=== PATIENT | female | born 1995 | race Caucasian/White ===

== ENCOUNTER 2016-04-06 13:35 | Inpatient (IN) | payer OTHER ==
[2016-04-06] VITALS (11 sets, daily range): BP systolic 102–138; BP diastolic 40–63; PULSE 118–142; RESP 16–23; TEMP 97.4–98.9; O2SAT 97–100
[~2016-04-06] VITALS: Ht 165.1 cm; Wt 79.8 kg
[~2016-04-06 13:35] MED LIST: ALBU2.5I INH; ALBU6.7H INH; ALBU8I INH; DICY1TAB26 PO; DUONI NEB; HUMA100I SC; LANTUSP SQ; LISI2.5T3 PO; PRED20 PO
[2016-04-06] MEDS ORDERED: SODIUM CHLOR 0.9% 1000 ML INJ 1,000 ML IV SCH ×2 (13:56→15:45)
[2016-04-06] MEDS ORDERED: DEXT 5%-NACL 0.9% 1000 ML INJ 1,000 ML IV SCH ×2 (13:56→15:45)
[2016-04-06] MEDS ORDERED: LANTUS2P SQ (14:06)
[2016-04-06] MEDS ORDERED: VENTAER INH (14:06)
[2016-04-06] MEDS ORDERED: [UNRECOGNIZED DRUG - OTHER] SQ (14:06)
[2016-04-06] MEDS ORDERED: LISI2.5T3 PO (14:06)
--- NOTE | 2016-04-06 14:16 | RADHPO ---
EXAM DATE/TIME: 04/06/2016 14:01 [place] COMPARISON: No previous studies available for comparison. INDICATIONS : Short of breath and tingling in arms. MEDICAL HISTORY : Diabetes mellitus type I. Asthma SURGICAL HISTORY : None. ENCOUNTER: Initial ACUITY: 1 day PAIN SCORE: 7/10 LOCATION: Bilateral chest FINDINGS: A single view of the chest demonstrates the lungs to be symmetrically aerated without evidence of mas s, infiltrate or effusion. The cardiomediastinal contours are unremarkable. Osseous structures are intact. CONCLUSION: 1. No acute cardiopulmonary findings. Nickolas Mooney MD on April 06, 2016 at 14:14 Board Certified Radiologist. This report was verified electronically.
[2016-04-06] MEDS: SODIUM CHLOR 0.9% 1000 ML INJ 1,000 ML IV SCH ×2 (14:17→15:49)
[2016-04-06 14:18] LABS: BLOOD GAS VENOUS BASE EXCESS -6.5 mmol/L (-2-2); BLOOD GAS VENOUS HCO3 19 mmol/L (22-26); BLOOD GAS VENOUS O2 CONTENT 7.9 Vol % (9.0-17.0); BLOOD GAS VENOUS O2 HGB SAT 45 % (70-76); BLOOD GAS VENOUS PCO2 44 mmHg (44-48); BLOOD GAS VENOUS PO2 35 mmHg (35-40); BLOOD GAS VENOUS pH 7.27 (7.360-7.400); CRITICAL VALUE YES; FIO2 21 %; TEMP CORR TO 98.6
[2016-04-06 14:19] LABS: DRAW SITE RT BRACHIAL; STAT YES
[2016-04-06 14:35] LABS: BLOOD, URINE NEG (NEG); NITRITE,URINE NEG (NEG); PH, URINE 5.5 (5.0-8.5)
[2016-04-06 14:40] LABS: GLUCOSE,URINE 1000 OR GREATER mg/dL (NEG); KETONE, URINE 80 OR GREATER mg/dL (NEG); METHOD OF COLLECTION CLEAN CATCH; URINE COLOR YELLOW (YELLW/STRAW)
[2016-04-06 14:41] LABS: COMMENT (UR) CULT NOT INDICATED; CULTURE IF INDICATED CULT NOT INDICATED; RBC, URINE 0-3 /hpf (0-3); SQUAMOUS EPITHELIAL CELL URINE 0-5 /hpf (0-5); WBC, URINE 0-2 /hpf (0-5)
[2016-04-06 14:45] LABS: CHLORIDE 101 MEQ/L (98-107); POTASSIUM 3.9 MEQ/L (3.5-5.1); SODIUM (NA) 138 MEQ/L (136-145)
[2016-04-06 14:49] LABS: ANION GAP 17 MEQ/L (5-15); BLOOD UREA NITROGEN 16 MG/DL (7-18); MAGNESIUM 1.7 MG/DL (1.5-2.5)
[2016-04-06 14:52] LABS: ALT (GPT) 47 U/L (10-53); AST (GOT) 31 U/L (15-37); GLOMERULAR FILTRATION RATE 134 ML/MIN (>89)
[2016-04-06 14:54] LABS: ALKALINE PHOSPHATASE 286 U/L (45-117)
[2016-04-06 15:04] LABS: BETA-HYDROXYBUTYRATE 3.98 MMOL/L (0.00-0.39)
[2016-04-06 15:09] LABS: AUTOMATED NEUTROPHIL # 5.1 TH/MM3 (1.8-7.7); BASOPHIL % 0.6 % (0.0-2.0); EOSINOPHIL # 0.1 TH/MM3 (0-0.4); EOSINOPHIL % 1.1 % (0.0-4.0); HEMATOCRIT 39.8 % (35.0-46.0); HEMO FLAGS DIFF FINAL; LYMPH % 24.7 % (9.0-44.0); LYMPHOCYTE # 1.9 TH/MM3 (1.0-4.8); MEAN CELL VOLUME 84.3 FL (80.0-100.0); MEAN CORPUSCULAR HEMOGLOBIN 27.5 PG (27.0-34.0); MEAN CORPUSCULAR HGB CONC 32.6 % (32.0-36.0); MONO % 8.7 % (0.0-8.0); NEUT % 64.9 % (16.0-70.0); PLATELET COUNT 266 TH/MM3 (150-450); RED BLOOD COUNT 4.72 MIL/MM3 (4.00-5.30); RED CELL DISTRIBUTION WIDTH 12.4 % (11.6-17.2); WHITE BLOOD COUNT 7.8 TH/MM3 (4.0-11.0)
[2016-04-06] MEDS ORDERED: SODIUM PHOSPHATE INJ 15 MMOL in SODIUM CHLORIDE 0.9% INJ 100 ML IV PRN (15:45)
[2016-04-06] MEDS ORDERED: CHLORHEXIDINE GLUCONATE 2 % 1 PACK (2 CLOTHS) TOP PRN (15:45)
[2016-04-06] MEDS ORDERED: MISCELLANEOUS NURSING INFORMATION XX SCH (15:45)
[2016-04-06] MEDS ORDERED: POTASSIUM CHLOR 20 MEQ PREMIX 100 ML IV PRN ×10 (15:45)
[2016-04-06] MEDS ORDERED: INSULIN REGULAR (IV INFUSION) 100 UNITS in SODIUM CHLORIDE 0.9% INJ 99 ML IV SCH ×4 (15:45)
[2016-04-06] MEDS ORDERED: POTASSIUM CHLOR 40 MEQ PREMIX 100 ML IV PRN ×2 (15:45)
[2016-04-06] MEDS ORDERED: INSULIN HUMAN REGULAR 1,000 UNITS/10 ML VIAL IV PUSH ONE (15:45)
[2016-04-06] MEDS ORDERED: SODIUM BICARBONATE 8.4% SOLN 50 MEQ/50 ML VIAL IV PRN ×2 (15:45)
--- NOTE | 2016-04-06 15:52 | PD ---
HPI Chief Complaint: Cardiac Complaint Time Seen by Provider: 13:48 Travel History International Travel<30 days: No Contact w/Intl Traveler<30days: No Traveled to known affect area: No History of Present Illness HPI 20yo F with PMH of type 1 DM, asthma presents to the ED with c/o polyuria and polydipsia today. Pt also with nausea and has been in this study by Dr. Winters for 1 month. On the bottle, it said lispro or placebo. Pt initially very tachycardic with sinus tach in the 140s, appears dehydrated. Denies fever , chest pain, sob, focal weakness or numbness. PFSH Past Medical History ADHD: No Asthma: Yes (DX A BABY) Autoimmune Disease: No Blood Disorders: No Depression: Yes Cancer: No Cardiovascular Problems: No Developmental Delay: No Diabetes: Yes (type 1) Patient Takes Glucophage: No Diminished Hearing: No Gastrointestinal Disorders: Yes Genitourinary: No Musculoskeletal: No Neurologic: No Psychiatric: Yes Respiratory: Yes (asthma) Immunizations Current: Yes Migraines: No Seizures: No Sickle Cell Disease: No Thyroid Disease: No Ulcer: No Tetanus Vaccination: Unknown Influenza Vaccination: No PNEUMOCCOCAL Vaccine (Year): 2 ?: Not LMP: 03/27/16 : 0 : 1 Past Surgical History Surgical History: No Previous Surgery Oral Surgery: Yes Other Surgery: Yes (teeth extractions.) Social History Alcohol Use: Yes (socially) Tobacco Use: No Substance Use: No Allergies-Medications (Allergen,Severity, Reaction): Coded Allergies: Sulfa (Verified Allergy, Severe, RASH, EXACERBATION OF ASTHMA, 12/02/15) PT DENIES Tomato (Verified Allergy, Unknown, 12/02/15) PT DENIES Uncoded Allergies: KETCHUP (Allergy, Unknown, 10/05/10) Reported Meds & Prescriptions Reported Meds & Active Scripts Active Reported [insuline trial study] 8 Units SQ Q2HR PRN Lisinopril 2.5 Mg Tab 2.5 Mg PO DAILY Ventolin Hfa 18 GM Inh (Albuterol Sulfate) 90 Mcg/Act Aer 2 Puff INH Q4-6H PRN Lantus Inj (Insulin Glargine) 1,000 Unit/10 Ml Vial 30 Units SQ AFTERNOON Review of Systems Except as stated in HPI: all other systems reviewed are Neg Physical Exam Narrative GENERAL: 20yo F in moderate distress. SKIN: Warm and dry. Poor skin turgor. HEAD: Atraumatic. Normocephalic. EYES: Pupils equal and round. No scleral icterus. No injection or drainage. ENT: No nasal bleeding or discharge. Mucous membranes pink and moist. NECK: Trachea midline. No JVD. CARDIOVASCULAR: Regular rate and rhythm. No murmur appreciated. RESPIRATORY: No accessory muscle use. Clear to auscultation. Breath sounds equal bilaterally. GASTROINTESTINAL: Abdomen soft, non-tender, nondistended. No rebound tenderness or guarding. MUSCULOSKELETAL: No obvious deformities. No clubbing. No cyanosis. No edema. NEUROLOGICAL: Awake and alert. No obvious cranial nerve deficits. Motor grossly within normal limits. Normal speech. PSYCHIATRIC: Appropriate mood and affect; insight and judgment normal. Data Data Last Documented VS Vital Signs Date Time Temp Pulse Resp B/P Pulse Ox O2 Delivery O2 Flow Rate FiO2 04/06/16 13:56 142 18 100 Room Air 04/06/16 13:49 98.0 138/59 Orders Head Irrigator / Telemetry (04/06/16 13:56) ^ Insert Iv (04/06/16 13:56) Lipase (04/06/16 13:56) Complete Blood Count With Diff (04/06/16 13:56) Comprehensive Metabolic Panel (04/06/16 13:56) Magnesium (Mg) (04/06/16 13:56) Phosphorus (Po4) (04/06/16 13:56) Beta Hydroxybutyrate (Acetone) (04/06/16 13:56) Sodium Chlor 0.9% 1000 Ml Inj (Ns 1000 M (04/06/16 13:56) Sodium Chlor 0.9% 1000 Ml Inj (Ns 1000 M (04/06/16 13:56) Dext 5%-Nacl 0.9% 1000 Ml Inj (D5w-Ns 10 (04/06/16 13:56) Chest, Single Ap (04/06/16 ) Blood Gas Venous (Vbg) (04/06/16 13:56) Ed Urine Pregnancytest Poc (04/06/16 13:56) Troponin I (04/06/16 14:00) Urinalysis - C+S If Indicated (04/06/16 14:14) Electrocardiogram (04/06/16 13:44) Insulin Human Regular Inj (Novolin R Inj (04/06/16 15:45) Insulin Regular (Iv Infusion) (Novolin R (04/06/16 15:45) Potassium Chlor 20 Meq Premix (Kcl 20 Me (04/06/16 15:45) Potassium Chlor 20 Meq Premix (Kcl 20 Me (04/06/16 15:45) Potassium Chlor 20 Meq Premix (Kcl 20 Me (04/06/16 15:45) Potassium Chlor 20 Meq Premix (Kcl 20 Me (04/06/16 15:45) Admit To Inpatient (04/06/16 ) Head Irrigator / Telemetry (04/06/16 15:45) ^ Insert Iv (04/06/16 15:45) ^ Teach Patient (04/06/16 15:45) Bedside Glucose DANIELA.Q1H (04/06/16 15:45) Sodium Chlor 0.9% 1000 Ml Inj (Ns 1000 M (04/06/16 15:45) Dext 5%-Nacl 0.9% 1000 Ml Inj (D5w-Ns 10 (04/06/16 15:45) Insulin Regular (Iv Infusion) (Novolin R (04/06/16 15:45) Potassium Chlor 40 Meq Premix (Kcl 40 Me (04/06/16 15:45) Potassium Chlor 40 Meq Premix (Kcl 40 Me (04/06/16 15:45) Potassium Chlor 20 Meq Premix (Kcl 20 Me (04/06/16 15:45) Potassium Chlor 20 Meq Premix (Kcl 20 Me (04/06/16 15:45) Potassium Chlor 20 Meq Premix (Kcl 20 Me (04/06/16 15:45) Potassium Chlor 20 Meq Premix (Kcl 20 Me (04/06/16 15:45) Potassium Chlor 20 Meq Premix (Kcl 20 Me (04/06/16 15:45) Potassium Chlor 20 Meq Premix (Kcl 20 Me (04/06/16 15:45) Sodium Bicarbonate 8.4% Inj (Sodium Bica (04/06/16 15:45) Sodium Bicarbonate 8.4% Inj (Sodium Bica (04/06/16 15:45) Sodium Phosphate Inj (Sodium Phosphate I (04/06/16 15:45) Hemoglobin (Hgb) A1c (04/06/16 15:45) Basic Metabolic Panel (Bmp) (04/06/16 20:45) Basic Metabolic Panel (Bmp) (04/07/16 02:45) Basic Metabolic Panel (Bmp) (04/07/16 08:45) Basic Metabolic Panel (Bmp) (04/07/16 14:45) Magnesium (Mg) (04/06/16 20:45) Magnesium (Mg) (04/07/16 02:45) Magnesium (Mg) (04/07/16 08:45) Magnesium (Mg) (04/07/16 14:45) Phosphorus (Po4) (04/06/16 20:45) Phosphorus (Po4) (04/07/16 02:45) Phosphorus (Po4) (04/07/16 08:45) Phosphorus (Po4) (04/07/16 14:45) Beta Hydroxybutyrate (Acetone) (04/07/16 02:45) Beta Hydroxybutyrate (Acetone) (04/07/16 14:45) ^ Initiate Protocol (04/06/16 15:45) ^ Instruction (04/06/16 15:45) [facility] Nursing Information (04/06/16 15:45) Chlorhexidine 2% Cloth (Chlorhexidine 2% (04/07/16 04:00) Chlorhexidine 2% Cloth (Chlorhexidine 2% (04/06/16 15:45) [facility] Pcr Surveillance (04/06/16 15:45) Inpatient Certification (04/06/16 ) Admit Order (Ed Use Only) (04/06/16 15:52) Labs Laboratory Tests Test 04/06/16 04/06/16 04/06/16 13:53 14:10 14:15 White Blood Count 7.8 TH/MM3 Red Blood Count 4.72 MIL/MM3 Hemoglobin 13.0 GM/DL Hematocrit 39.8 % Mean Corpuscular Volume 84.3 FL Mean Corpuscular Hemoglobin 27.5 PG Mean Corpuscular Hemoglobin 32.6 % Concent Red Cell Distribution Width 12.4 % Platelet Count 266 TH/MM3 Mean Platelet Volume 9.1 FL Neutrophils (%) (Auto) 64.9 % Lymphocytes (%) (Auto) 24.7 % Monocytes (%) (Auto) 8.7 % Eosinophils (%) (Auto) 1.1 % Basophils (%) (Auto) 0.6 % Neutrophils # (Auto) 5.1 TH/MM3 Lymphocytes # (Auto) 1.9 TH/MM3 Monocytes # (Auto) 0.7 TH/MM3 Eosinophils # (Auto) 0.1 TH/MM3 Basophils # (Auto) 0.0 TH/MM3 CBC Comment DIFF FINAL Differential Comment Sodium Level 138 MEQ/L Potassium Level 3.9 MEQ/L Chloride Level 101 MEQ/L Carbon Dioxide Level 20.0 MEQ/L Anion Gap 17 MEQ/L Blood Urea Nitrogen 16 MG/DL Creatinine 0.57 MG/DL Estimat Glomerular Filtration 134 ML/MIN Rate Random Glucose 392 MG/DL Calcium Level 9.7 MG/DL Phosphorus Level 3.8 MG/DL Magnesium Level 1.7 MG/DL Total Bilirubin 1.0 MG/DL Aspartate Amino Transf 31 U/L (AST/SGOT) Alanine Aminotransferase 47 U/L (ALT/SGPT) Alkaline Phosphatase 286 U/L Troponin I LESS THAN 0.02 NG/ML Total Protein 7.5 GM/DL Albumin 3.6 GM/DL Lipase 84 U/L B-Hydroxybutyrate 3.98 MMOL/L Blood Gas Puncture Site RT BRACHIAL Blood Gas Patient Temperature 98.6 Venous Blood pH 7.27 Venous Blood Partial Pressure 44 mmHg CO2 Venous Blood Partial Pressure 35 mmHg O2 Venous Blood HCO3 19 mmol/L Venous Blood Oxygen Saturation 45 % Venous Blood Oxygen Content 7.9 Vol % Venous Blood Base Excess -6.5 mmol/L Oxygen Delivery Device NONE Blood Gas Inspired Oxygen 21 % Urine Collection Type CLEAN CATCH Urine Color YELLOW Urine Turbidity CLEAR Urine pH 5.5 Urine Specific [place] 1.030 Urine Protein NEG mg/dL Urine Glucose (UA) 1000 OR GREATER mg/dL Urine Ketones 80 OR GREATER mg/dL Urine Occult Blood NEG Urine Nitrite NEG Urine Bilirubin NEG Urine Leukocyte Esterase NEG Urine RBC 0-3 /hpf Urine WBC 0-2 /hpf Urine Squamous Epithelial 0-5 /hpf Cells Microscopic Urinalysis Comment CULT NOT INDICATED Urine Collection Time 14:15 [facility] Medical Decision Making Medical Screen Exam Complete: Yes Emergency Medical Condition: Yes Interpretation(s) EKG: Sinus tachycardia at 140bpm. Normal axis. Q wave V1, V2. Laboratory Tests Test 04/06/16 04/06/16 04/06/16 13:53 14:10 14:15 White Blood Count 7.8 TH/MM3 (4.0-11.0) Red Blood Count 4.72 MIL/MM3 (4.00-5.30) Hemoglobin 13.0 GM/DL (11.6-15.3) Hematocrit 39.8 % (35.0-46.0) Mean Corpuscular Volume 84.3 FL (80.0-100.0) Mean Corpuscular Hemoglobin 27.5 PG (27.0-34.0) Mean Corpuscular Hemoglobin 32.6 % Concent (32.0-36.0) Red Cell Distribution Width 12.4 % (11.6-17.2) Platelet Count 266 TH/MM3 (150-450) Mean Platelet Volume 9.1 FL (7.0-11.0) Neutrophils (%) (Auto) 64.9 % (16.0-70.0) Lymphocytes (%) (Auto) 24.7 % (9.0-44.0) Monocytes (%) (Auto) 8.7 % (0.0-8.0) Eosinophils (%) (Auto) 1.1 % (0.0-4.0) Basophils (%) (Auto) 0.6 % (0.0-2.0) Neutrophils # (Auto) 5.1 TH/MM3 (1.8-7.7) Lymphocytes # (Auto) 1.9 TH/MM3 (1.0-4.8) Monocytes # (Auto) 0.7 TH/MM3 (0-0.9) Eosinophils # (Auto) 0.1 TH/MM3 (0-0.4) Basophils # (Auto) 0.0 TH/MM3 (0-0.2) CBC Comment DIFF FINAL Differential Comment Sodium Level 138 MEQ/L (136-145) Potassium Level 3.9 MEQ/L (3.5-5.1) Chloride Level 101 MEQ/L (98-107) Carbon Dioxide Level 20.0 MEQ/L (21.0-32.0) Anion Gap 17 MEQ/L (5-15) Blood Urea Nitrogen 16 MG/DL (7-18) Creatinine 0.57 MG/DL (0.50-1.00) Estimat Glomerular Filtration 134 ML/MIN Rate (>89) Random Glucose 392 MG/DL (74-106) Calcium Level 9.7 MG/DL (8.5-10.1) Phosphorus Level 3.8 MG/DL (2.5-4.9) Magnesium Level 1.7 MG/DL (1.5-2.5) Total Bilirubin 1.0 MG/DL (0.2-1.0) Aspartate Amino Transf 31 U/L (15-37) (AST/SGOT) Alanine Aminotransferase 47 U/L (10-53) (ALT/SGPT) Alkaline Phosphatase 286 U/L (45-117) Troponin I LESS THAN 0.02 NG/ML (0.02-0.05) Total Protein 7.5 GM/DL (6.4-8.2) Albumin 3.6 GM/DL (3.4-5.0) Lipase 84 U/L (73-393) B-Hydroxybutyrate 3.98 MMOL/L (0.00-0.39) Blood Gas Puncture Site RT BRACHIAL Blood Gas Patient Temperature 98.6 Venous Blood pH 7.27 (7.360-7.400) Venous Blood Partial Pressure 44 mmHg (44-48) CO2 Venous Blood Partial Pressure 35 mmHg (35-40) O2 Venous Blood HCO3 19 mmol/L (22-26) Venous Blood Oxygen Saturation 45 % (70-76) Venous Blood Oxygen Content 7.9 Vol % (9.0-17.0) Venous Blood Base Excess -6.5 mmol/L (-2-2) Oxygen Delivery Device NONE Blood Gas Inspired Oxygen 21 % Urine Collection Type CLEAN CATCH Urine Color YELLOW (YELLW/STRAW) Urine Turbidity CLEAR (CLEAR) Urine pH 5.5 (5.0-8.5) Urine Specific [place] 1.030 (1.002-1.035) Urine Protein NEG mg/dL (NEG-TRACE) Urine Glucose (UA) 1000 OR GREATER mg/dL (NEG) Urine Ketones 80 OR GREATER mg/dL (NEG) Urine Occult Blood NEG (NEG) Urine Nitrite NEG (NEG) Urine Bilirubin NEG (NEG) Urine Leukocyte Esterase NEG (NEG) Urine RBC 0-3 /hpf (0-3) Urine WBC 0-2 /hpf (0-5) Urine Squamous Epithelial 0-5 /hpf (0-5) Cells Microscopic Urinalysis Comment CULT NOT INDICATED Urine Collection Time 14:15 Last Impressions Chest X-Ray 04/06/16 0000 Signed Impressions: Service Date/Time: Wednesday, April 06, 2016 14:01 - CONCLUSION: 1. No acute cardiopulmonary findings. Nickolas Mooney MD Differential Diagnosis DKA vs. uncontrolled DM vs. infection Narrative Course 20yo F with type 1 DM here with symptoms consistent with dehydration and DKA. Labs reviewed, VBG showed metabolic acidosis with pH 7.27 and HCO3 19. Anion gap mildly increased at 17 and K is 3.9. Alk phos is elevated at 286. Troponin negative. UA showed negative leukocyte. +80 ketones. Elevated b- Hydroxybutyrate. DKA protocol initiated and pt given IVF NS x2. Insulin bolus and drip started. HR is now down to 120s. CXR showed no acute cardiopulmonary findings. Discussed with ALEKSANDAR Rubio and admitted to Dr. Smith. Critical Care Narrative Aggregate critical care time was 35 minutes. Time to perform other separately billable procedures was not included in the critical care time. My time did not include minutes spent treating any other patients simultaneously or on activities that did not directly contribute to the patient's treatment. The services I provided to this patient were to treat and/or prevent clinically significant deterioration that could result in: cardiovascular collapse or . I provided critical care services requiring my management, as noted below: Chart data review, documentation time, medication orders and management, vital sign assessments/reviewing monitor data, ordering and reviewing lab tests, ordering and interpreting/reviewing x-rays and diagnostic studies, care of the patient and discussion of the patient with the admitting physicians. Diagnosis Primary Impression: DKA (diabetic ketoacidoses) Qualified Code: E10.10 - Diabetic ketoacidosis without coma associated with type 1 diabetes mellitus Admitting Information Admitting Physician Requests: Rebeca Pryor DO Apr 06, 2016 15:52
[2016-04-06] MEDS ORDERED: DEXTROSE 50% IN WATER 50 ML VIAL(D50) ONE (17:39)
[2016-04-06] MEDS ORDERED: INSULIN DETEMIR 100 UNITS/ML VIAL SQ SCH (18:15)
[2016-04-06] MEDS ORDERED: SODIUM CHLOR 0.9% 1000 ML INJ 1,000 ML IV ONE (18:15)
[2016-04-06] MEDS ORDERED: GLUCAGON 1 MG/ML VIAL OTHER PRN (18:45)
[2016-04-06] MEDS ORDERED: DEXTROSE 50% IN WATER 50 ML VIAL(D50) IV PRN (18:45)
[2016-04-06] MEDS: NS + KCL 20 MEQ INJ 1,000 ML IV SCH (18:47)
[2016-04-06] MEDS: INSULIN ASPART SUPPLEMENTAL SCALE SQ SCH (20:35)
[2016-04-06 21:17] LABS: CHLORIDE 108 MEQ/L (98-107); POTASSIUM 4.4 MEQ/L (3.5-5.1); SODIUM (NA) 142 MEQ/L (136-145)
[2016-04-06 21:27] LABS: ANION GAP 12 MEQ/L (5-15); BICARBONATE 21.7 MEQ/L (21.0-32.0); BLOOD UREA NITROGEN 11 MG/DL (7-18); GLOMERULAR FILTRATION RATE 149 ML/MIN (>89); MAGNESIUM 1.5 MG/DL (1.5-2.5)
[2016-04-07] VITALS (17 sets, daily range): BP systolic 122–144; BP diastolic 47–89; PULSE 70–126; RESP 14–39; TEMP 97.8–98.4; O2SAT 95–99
[2016-04-07] MEDS: ACETAMINOPHEN 325 MG TAB PO PRN ×2 (00:36→09:21)
[2016-04-07] MEDS ORDERED: ALBUTEROL SULFATE 90 MCG/ACT HFA 8 GM INHALER INH PRN (01:15)
[2016-04-07] MEDS: CHLORHEXIDINE GLUCONATE 2 % 1 PACK (2 CLOTHS) TOP SCH (01:40)
[2016-04-07] MEDS: NS + KCL 20 MEQ INJ 1,000 ML IV SCH ×2 (01:41→13:34)
[2016-04-07] MEDS ORDERED: RESP: ALBUTEROL 2.5 MG/IPRATROPIUM 0.5 MG NEB (PRN) NEB (01:45)
[2016-04-07] MEDS ORDERED: ALBUTEROL MDI INH PRN (02:00)
[2016-04-07 03:27] LABS: BICARBONATE 22.3 MEQ/L (21.0-32.0); MAGNESIUM 1.2 MG/DL (1.5-2.5)
[2016-04-07 03:31] LABS: BETA-HYDROXYBUTYRATE 3.01 MMOL/L (0.00-0.39)
[2016-04-07] MEDS: MAGNESIUM SULFATE 1 GM PREMIX 100 ML IV SCH ×2 (03:47→04:18)
[2016-04-07] MEDS ORDERED: ONDANSETRON HCL 4 MG/2 ML VIAL IV PUSH PRN (06:30)
[2016-04-07] MEDS: INSULIN ASPART SUPPLEMENTAL SCALE SQ SCH ×4 (06:38→20:58)
[2016-04-07 10:11] LABS: BICARBONATE 18.4 MEQ/L (21.0-32.0); MAGNESIUM 1.8 MG/DL (1.5-2.5); POTASSIUM 4.1 MEQ/L (3.5-5.1)
[2016-04-07] MEDS ORDERED: DEXTROSE 50% IN WATER 50 ML VIAL(D50) IV PUSH PRN (10:45)
[2016-04-07] MEDS ORDERED: GLUCAGON 1 MG/ML VIAL OTHER PRN (10:45)
[2016-04-07] MEDS ORDERED: INSULIN DETEMIR 100 UNITS/ML VIAL SQ SCH (11:00)
--- NOTE | 2016-04-07 11:29 | HHI.HP ---
[facility] Samuel Winters, Admission Diagnosis DKA Diagnoses: (1) DKA (diabetic ketoacidoses) Diagnosis: Principal (2) Hypomagnesemia Diagnosis: Principal Chief Complaint: elevated BGL, generalized tingling Travel History International Travel<30 Days: No Contact w/Intl Traveler <30 Da: No Traveled to Known Affected Are: No History of Present Illness 20-year-old female with history of type 1 diabetes mellitus and asthma is admitted for DKA. The patient takes Lantus at home and is also in a clinical trial with Dr. Winters for > 1 month. She states the clinical trial insulin is either Lispro or placebo. Prior to the clinical trial patient was using Humalog in addition to her Lantus and counting carbohydrates. She states she eats approximately 100 carbs per day and checks her blood glucose level and administers insulin every 3 hours. Patient states she was in [place] and was getting Lantus from a clinic in [place]. She was visiting here and missed her Lantus dose night prior to arrival because she had brought the wrong insulin with her. Patient has only been hospitalized once for DKA at the age of 16. Patient states her blood glucose levels have been running 250-300 or higher. She states she had vomiting yesterday and also tingling up the right hand, arm, both sides of back, and chest; felt like it was "on fire". Review of Systems Other ROS x 10 negative unless otherwise indicated in HPI Past Family Social History Past Medical History Type 1 diabetes mellitus. Asthma. Past Surgical History Teeth extraction per EMR Reported Medications [insuline trial study] 8 Units SQ Q2HR PRN Lisinopril 2.5 Mg Tab 2.5 Mg PO DAILY Ventolin Hfa 18 GM Inh (Albuterol Sulfate) 90 Mcg/Act Aer 2 Puff INH Q4-6H PRN Lantus Inj (Insulin Glargine) 1,000 Unit/10 Ml Vial 30 Units SQ AFTERNOON Allergies: Coded Allergies: Sulfa (Verified Allergy, Severe, RASH, EXACERBATION OF ASTHMA, 12/02/15) PT DENIES Tomato (Verified Allergy, Unknown, 12/02/15) PT DENIES Uncoded Allergies: KETCHUP (Allergy, Unknown, 10/05/10) Family History Family history of type 2 diabetes. Social History Patient drinks alcohol once per month. Denies illicit drug use. Denies cigarette smoking. Physical Exam Vital Signs Vital Signs Date Time Temp Pulse Resp B/P Pulse Ox O2 Delivery O2 Flow Rate FiO2 04/07/16 06:24 98.2 126 20 130/48 96 04/07/16 06:00 118 04/07/16 04:00 116 04/07/16 04:00 98.4 114 20 136/47 96 04/07/16 02:00 116 14 97 04/07/16 02:00 116 04/07/16 01:00 110 39 97 04/07/16 00:26 98.4 117 22 126/56 04/07/16 00:00 115 04/06/16 23:00 118 23 102/45 04/06/16 22:34 120 16 128/40 99 04/06/16 22:00 119 04/06/16 20:00 122 04/06/16 19:54 98.9 120 22 122/51 99 04/06/16 19:00 128 21 136/63 99 04/06/16 18:00 120 21 121/58 04/06/16 17:33 97.4 122 20 137/54 97 04/06/16 17:30 127 04/06/16 16:51 126 16 135/62 100 Room Air 04/06/16 13:56 142 18 100 Room Air 04/06/16 13:49 98.0 142 18 138/59 100 Physical Exam GENERAL: This is a well-nourished, well-developed patient, in no apparent distress sitting in chair. SKIN: No rashes, ecchymoses or lesions. Cool and dry. HEAD: Atraumatic. Normocephalic. EYES:No scleral icterus. No injection or drainage. NECK: Trachea midline. CARDIOVASCULAR: Tachycardic rate 131 and regular rhythm. RESPIRATORY: Mild wheezing. RR normal. GASTROINTESTINAL: Abdomen soft, non-tender, nondistended. MUSCULOSKELETAL: No obvious deformities. NEUROLOGICAL: Awake and alert. Motor grossly within normal limits. Normal speech. Laboratory Laboratory Tests Test 04/06/16 04/06/16 04/06/1604/06/17 13:53 14:10 14:15 17:55 White Blood Count 7.8 Red Blood Count 4.72 Hemoglobin 13.0 Hematocrit 39.8 Mean Corpuscular Volume 84.3 Mean Corpuscular Hemoglobin 27.5 Mean Corpuscular Hemoglobin 32.6 Concent Red Cell Distribution Width 12.4 Platelet Count 266 Mean Platelet Volume 9.1 Neutrophils (%) (Auto) 64.9 Lymphocytes (%) (Auto) 24.7 Monocytes (%) (Auto) 8.7 Eosinophils (%) (Auto) 1.1 Basophils (%) (Auto) 0.6 Neutrophils # (Auto) 5.1 Lymphocytes # (Auto) 1.9 Monocytes # (Auto) 0.7 Eosinophils # (Auto) 0.1 Basophils # (Auto) 0.0 CBC Comment DIFF FINAL Differential Comment Sodium Level 138 Potassium Level 3.9 Chloride Level 101 Carbon Dioxide Level 20.0 Anion Gap 17 Blood Urea Nitrogen 16 Creatinine 0.57 Estimat Glomerular Filtration 134 Rate Random Glucose 392 Calcium Level 9.7 Phosphorus Level 3.8 Magnesium Level 1.7 Total Bilirubin 1.0 Aspartate Amino Transf 31 (AST/SGOT) Alanine Aminotransferase 47 (ALT/SGPT) Alkaline Phosphatase 286 Troponin I LESS THAN 0.02 Total Protein 7.5 Albumin 3.6 Lipase 84 B-Hydroxybutyrate 3.98 Blood Gas Puncture Site RT BRACHIAL Blood Gas Patient Temperature 98.6 Venous Blood pH 7.27 Venous Blood Partial Pressure 44 CO2 Venous Blood Partial Pressure 35 O2 Venous Blood HCO3 19 Venous Blood Oxygen Saturation 45 Venous Blood Oxygen Content 7.9 Venous Blood Base Excess -6.5 Oxygen Delivery Device NONE Blood Gas Inspired Oxygen 21 Urine Collection Type CLEAN CATCH Urine Color YELLOW Urine Turbidity CLEAR Urine pH 5.5 Urine Specific [place] 1.030 Urine Protein NEG Urine Glucose (UA) 1000 OR GREATER Urine Ketones 80 OR GREATER Urine Occult Blood NEG Urine Nitrite NEG Urine Bilirubin NEG Urine Leukocyte Esterase NEG Urine RBC 0-3 Urine WBC 0-2 Urine Squamous Epithelial 0-5 Cells Microscopic Urinalysis Comment CULT NOT INDICATED Urine Collection Time 14:15 Nasal Screen MRSA (PCR) NEGATIVE Test 04/06/16 04/07/16 04/07/16 20:47 03:00 08:45 Sodium Level 142 140 141 Potassium Level 4.4 4.0 4.1 Chloride Level 108 107 107 Carbon Dioxide Level 21.7 22.3 18.4 Anion Gap 12 11 16 Blood Urea Nitrogen 11 12 10 Creatinine 0.52 0.31 0.32 Estimat Glomerular Filtration 149 270 261 Rate Random Glucose 299 235 236 Calcium Level 8.2 8.7 9.2 Phosphorus Level 4.2 4.1 3.3 Magnesium Level 1.5 1.2 1.8 B-Hydroxybutyrate 3.01 Result Diagram: 04/06/16 1353 04/07/16 0845 Imaging Last Impressions Chest X-Ray 04/06/16 0000 Signed Impressions: Service Date/Time: Wednesday, April 06, 2016 14:01 - CONCLUSION: 1. No acute cardiopulmonary findings. Nickolas Mooney MD Assessment and Plan Assessment and Plan 20-year-old female with: DKA: Uncontrolled type 1 diabetes. CBC unremarkable. VBG pH 7.27, HCO3 19. Initial Anion gap 17. UA with 1000+ glucose, 80+ ketones. Beta hydroxybutyrate 3.98. Chest x-ray personally interpreted without acute disease. -DKA protocol initiated. Anion gap initially closed but again elevated at 16 this morning. BGL 257 @ 0643. -Now patient transitioned to Levemir 15 units twice a day with 3 units NovoLog tidac and additional SSI as needed. Bedside Accu-checks. -Monitor BMP and replace electrolytes as needed. Next BMP this afternoon. -Patient continues to be tachycardic. Increase IV fluids to 125 mL/hr. -Diabetic diet/education Hypomagnesemia: 1.2-->1.8 s/p 1 g IV magnesium sulfate. -Monitor and replete as needed. Asthma: -Duonebs prn wheezing/SOB. -Patient likely needs additional inhaled corticosteroid for home as she uses inhaler 4 times a day as well as nebulizer. DVT prevention: TEDs/SCDs. Discharge planning: I spoke with case management who will obtain blue card for patient and CM informed patient of cost of insulin. $7. Patient will likely be stable for discharge tomorrow. Written by Lottie Alfaro PA-C acting as scribe for Dr. Smith on 04/07/16 at 1100. The documentation accurately reflects the work and decisions performed face-to- face by me Dr. Smith on 04/07/16 at 1100. Discussed Condition With patient, RN Physician Certification 2 Midnight Certification Type: Admission for Inpatient Services Order for Inpatient Services The services are ordered in accordance with Medicare regulations or non- Medicare payer requirements, as applicable. In the case of services not specified as inpatient-only, they are appropriately provided as inpatient services in accordance with the 2-midnight benchmark. Estimated LOS (days): 2 days is the estimated time the patient will need to remain in the hospital, assuming treatment plan goals are met and no additional complications. Post-Hospital Plan: Home Problem Qualifiers (1) DKA (diabetic ketoacidoses): Qualified Code: E10.10 - Diabetic ketoacidosis without coma associated with type 1 diabetes mellitus Lottie Alfaro Apr 07, 2016 11:29
[2016-04-07] MEDS: INSULIN DETEMIR 100 UNITS/ML VIAL SQ SCH ×2 (11:47→20:59)
[2016-04-07] MEDS: INSULIN ASPART 1,000 UNITS/10 ML VIAL SQ SCH ×2 (13:36→18:11)
[2016-04-07 14:59] LABS: POTASSIUM 3.9 MEQ/L (3.5-5.1)
[2016-04-07 15:02] LABS: BICARBONATE 20.7 MEQ/L (21.0-32.0)
[2016-04-07 15:06] LABS: MAGNESIUM 1.5 MG/DL (1.5-2.5)
[2016-04-07 15:52] LABS: BETA-HYDROXYBUTYRATE 3.2 MMOL/L (0.00-0.39)
--- NOTE | 2016-04-07 16:41 | EKG ---
Date Performed: 04/06/2016 Time Performed: 13:44:18 PTAGE: 20 years EKG: Probable sinus tachycardia QRS changes in V2 may be due to LVH but cannot rule out septal i nfarct Abnormal ECG NO PREVIOUS TRACING DOCTOR: Micheline Andrade Interpretating Date/Time 04/07/2016 16:35:54
[2016-04-07 17:40] LABS: HEMOGLOBIN A1a 1.4 %; HEMOGLOBIN Ao 77.5 %; HEMOGLOBIN F 2.3 %; HEMOGLOBIN P3 5.4 %
[2016-04-08] VITALS: BP 149/75; PULSE 101; RESP 20; TEMP 97.2; O2SAT 98
[2016-04-08] MEDS: NS + KCL 20 MEQ INJ 1,000 ML IV SCH ×2 (01:15→08:12)
[2016-04-08] MEDS: CHLORHEXIDINE GLUCONATE 2 % 1 PACK (2 CLOTHS) TOP SCH (03:28)
[2016-04-08] MEDS: INSULIN ASPART SUPPLEMENTAL SCALE SQ SCH ×2 (06:27→12:06)
[2016-04-08 08:00] VITALS: BP 142/72; PULSE 97; RESP 18; TEMP 97.9; O2SAT 98
[2016-04-08] MEDS: INSULIN ASPART 1,000 UNITS/10 ML VIAL SQ SCH ×2 (08:12→12:05)
[2016-04-08] MEDS: INSULIN DETEMIR 100 UNITS/ML VIAL SQ SCH (08:12)
[2016-04-08] MEDS ORDERED: LISI2.5T3 PO (09:18)
[2016-04-08] MEDS ORDERED: VENTAER INH (09:18)
[2016-04-08] MEDS ORDERED: LANTUS2P SQ (09:18)
[2016-04-08] MEDS ORDERED: SYMB80AE INH (09:19)
[2016-04-08] MEDS ORDERED: NOVOLOGP2 SQ (09:19)
[2016-04-08 12:00] VITALS: BP 138/79; PULSE 89; RESP 19; TEMP 98; O2SAT 97
--- NOTE | 2016-04-08 12:22 | HHI.DCPOC ---
Discharge Care Plan Diagnosis: (1) DKA (diabetic ketoacidoses) (2) Hypomagnesemia Goals to Promote Your Health * To prevent worsening of your condition and complications * To maintain your health at the optimal level Directions to Meet Your Goals Take your medications as prescribed Follow your dietary instruction Follow activity as directed Keep your appointments as scheduled Take your immunizations and boosters as scheduled If your symptoms worsen call your PCP, if no PCP go to Urgent Care Center or Emergency Room Smoking is Dangerous to Your Health. Avoid second hand smoke Call the 24-hour hour crisis hotline for domestic abuse at Lottie Alfaro Apr 08, 2016 12:21
[2016-04-08] MEDS: MAGNESIUM SULFATE 1 GM PREMIX 100 ML IV SCH ×2 (13:14→14:34)
--- NOTE | 2016-04-08 15:15 | HHI.DS ---
cc: VianeySamuel Arnel LOUIS Discharge Summary Admission Date Apr 06, 2016 at 15:53 Discharge Date: Apr 08, 2016 Admitting Diagnosis DKA (1) DKA (diabetic ketoacidoses) ICD Code: E13.10 Diagnosis: Principal (2) Hypomagnesemia ICD Code: E83.42 Diagnosis: Principal Procedures None Brief History - From Admission 20-year-old female with history of type 1 diabetes mellitus and asthma is admitted for DKA. The patient takes Lantus at home and is also in a clinical trial with Dr. Winters for > 1 month. She states the clinical trial insulin is either Lispro or placebo. Prior to the clinical trial patient was using Humalog in addition to her Lantus and counting carbohydrates. She states she eats approximately 100 carbs per day and checks her blood glucose level and administers insulin every 3 hours. Patient states she was in [place] and was getting Lantus from a clinic in [place]. She was visiting here and missed her Lantus dose night prior to arrival because she had brought the wrong insulin with her. Patient has only been hospitalized once for DKA at the age of 16. Patient states her blood glucose levels have been running 250-300 or higher. She states she had vomiting yesterday and also tingling up the right hand, arm, both sides of back, and chest; felt like it was "on fire". CBC/BMP: 04/06/16 1353 04/07/16 1445 Significant Findings Laboratory Tests Test 04/06/16 04/06/16 04/06/16 04/06/16 13:53 14:10 14:15 20:47 Monocytes (%) (Auto) 8.7 % (0.0-8.0) Carbon Dioxide Level 20.0 MEQ/L (21.0-32.0) Anion Gap 17 MEQ/L (5-15) Random Glucose 392 MG/DL 299 MG/DL (74-106) (74-106) Alkaline Phosphatase 286 U/L (45-117) Troponin I LESS THAN 0.02 NG/ML (0.02-0.05) B-Hydroxybutyrate 3.98 MMOL/L (0.00-0.39) Venous Blood pH 7.27 (7.360-7.400) Venous Blood HCO3 19 mmol/L (22-26) Venous Blood Oxygen Saturation 45 % (70-76) Venous Blood Oxygen Content 7.9 Vol % (9.0-17.0) Venous Blood Base Excess -6.5 mmol/L (-2-2) Urine Glucose (UA) 1000 OR GREATER mg/dL (NEG) Urine Ketones 80 OR GREATER mg/dL (NEG) Chloride Level 108 MEQ/L (98-107) Hemoglobin A1c 9.3 % (4.3-6.0) Calcium Level 8.2 MG/DL (8.5-10.1) Test 04/07/16 04/07/16 04/07/16 03:00 08:45 14:45 Creatinine 0.31 MG/DL 0.32 MG/DL (0.50-1.00) (0.50-1.00) Random Glucose 235 MG/DL 236 MG/DL 383 MG/DL (74-106) (74-106) (74-106) Magnesium Level 1.2 MG/DL (1.5-2.5) B-Hydroxybutyrate 3.01 MMOL/L 3.20 MMOL/L (0.00-0.39) (0.00-0.39) Carbon Dioxide Level 18.4 MEQ/L 20.7 MEQ/L (21.0-32.0) (21.0-32.0) Anion Gap 16 MEQ/L (5-15) Imaging Last Impressions Chest X-Ray 04/06/16 0000 Signed Impressions: Service Date/Time: Wednesday, April 06, 2016 14:01 - CONCLUSION: 1. No acute cardiopulmonary findings. Nickolas Mooney MD PE at Discharge GENERAL: Well-nourished, well-developed patient in no apparent distress. SKIN: Warm and dry. EYES: No scleral icterus. CARDIOVASCULAR: Regular rate and rhythm. RESPIRATORY: No accessory muscle use. Clear to auscultation. Breath sounds equal bilaterally. GASTROINTESTINAL: Abdomen soft, non-tender, nondistended. NEUROLOGICAL: Awake and alert. Motor grossly within normal limits. Normal speech. PSYCHIATRIC: Appropriate mood and affect; insight and judgment normal. Pt update on day of discharge Patient's blood glucose level improved this morning. She has no acute complaints. Hospital Course Ms. Galvez is a 20-year-old type I diabetic. Patient came into the ED with blood glucose level of 392 and evidence of DKA. Patient apparently was partaking in a clinical trial of short acting insulin with Dr. Winters and also missed her Lantus dose the night before she arrived to the ED because she brought the wrong vile with her when she traveled to this area. Patient's hemoglobin A1c is 9.3 indicating poor control. Patient was started on Levemir as well as scheduled NovoLog with additional sliding scale. Blood glucose level improved. With insulin and IV fluid hydration DKA improved with closure of anion gap. Hypomagnesemia was corrected with IV magnesium. Patient also informed us that she has asthma and uses her inhaler qid at home. For this reason patient will also be prescribed Symbicort to achieve better control of her asthma. Case management was consulted and blue card has been arranged so patient can obtain insulin for $7 at [employer]. Pt Condition on Discharge: Stable Discharge Disposition: Discharge Home Discharge Time: > 30 minutes (coordination with case management) Discharge Instructions DIET: Follow Instructions for: Diabetic Diet Activities you can perform: Regular-No Restrictions Follow up Referrals: PCP Follow-up - 2-3 Days with Samuel Winters DO New Medications: Budesonide-Formoterol Inh (Symbicort Inh) 80-4.5 Mcg/Act Aero 1 PUFF INH Q12HR Asthma Management #1 Ref 0 INHALER Insulin Aspart Inj (Novolog Inj) 1,000 Unit/10 Ml Vial 3 UNITS SQ TIDAC Blood Sugar Management #1 Ref 1 VIAL Continued Medications: Albuterol 18 GM Inh (Ventolin Hfa 18 GM Inh) 90 Mcg/Act Aer 2 PUFF INH Q4-6H PRN SHORTNESS OF BREATH #1 Ref 0 INHALER (This prescription has been renewed) Insulin Glargine Inj (Lantus Inj) 1,000 Unit/10 Ml Vial 30 UNITS SQ afternoon Blood Sugar Management #1 Ref 1 VIAL (This prescription has been renewed) Lisinopril (Lisinopril) 2.5 Mg Tab 2.5 MG PO DAILY #30 Ref 0 TAB (This prescription has been renewed) Discontinued Medications: ([insuline trial study]) 8 UNITS SQ Q2HR PRN blood sugar Additional Information Written by Lottie Alfaro PA-C acting as scribe for Dr. Smith on 04/08/16 at 1145. The documentation accurately reflects the work and decisions performed face-to- face by me Dr. Smith on 04/08/16 at 1145. Lottie Alfaro Apr 08, 2016 15:15
== END 2016-04-08 16:18 | disposition home or self-care (01) | DRG 639 ==
LOC: PHED 13:35 → PHEDA 15:53 → PHICU 17:15 → PH3B 04-07 12:25
PROVIDERS: ADMIT Family Medicine; ATTEND Family Medicine
DX: E10.10 Type 1 diabetes mellitus with ketoacidosis without coma (principal); E83.42 Hypomagnesemia; E86.0 Dehydration; F32.9 Major depressive disorder, single episode, unspecified; J45.909 Unspecified asthma, uncomplicated; Z79.4 Long term (current) use of insulin; Z88.2 Allergy status to sulfonamides
CPT/HCPCS: 71010; 80048; 80053; 81001; 82010; 82805; 82948; 83036; 83690; 83735; 84100; 84484; 84703; 85025; 87641; 93005; 94664; 96360; 96361; J1815; J1817; J2405; J3475; J3480; J7030; J7042

== ENCOUNTER 2016-05-24 06:42 | Observation (INO) | payer OTHER ==
[~2016-05-24] VITALS: Ht 165.1 cm; Wt 79.8 kg
[2016-05-24] VITALS (7 sets, daily range): BP systolic 119–164; BP diastolic 57–88; PULSE 87–145; RESP 20–24; TEMP 98.7–98.8; O2SAT 95–98
[~2016-05-24 06:42] MED LIST changes: -ALBU2.5I INH; -ALBU6.7H INH; -ALBU8I INH; -DICY1TAB26 PO; -DUONI NEB; -HUMA100I SC; +LANTUS2P SQ; -LANTUSP SQ; +NOVOLOGP2 SQ; -PRED20 PO; +SYMB80AE INH; +VENTAER INH
--- NOTE | 2016-05-24 07:21 | PD ---
HPI Chief Complaint: Respiratory Symptoms Time Seen by Provider: 07:16 Travel History International Travel<30 days: No Contact w/Intl Traveler<30days: No Traveled to known affect area: No History of Present Illness HPI 20-year-old female with history of diabetes, asthma, has been having a few days ' history of coughing, shortness of breath, and had been seen in [facility] yesterday for asthma exacerbation, had been given prednisone and albuterol nebulizers, and came to work here today, is having worsening and coughing and shortness of breath. She states that she had run out of her inhalers and has not gotten it filled. She states she does not have a primary care doctor and has been dealing with her diabetes on her own. She has been having some diarrhea, and nausea but no vomiting. She denies any abdominal pain , chest pains, or other issues. Modifying Factors: None Associated Signs & Symptoms: Coughing, shortness of breath Risk Factors: Asthma PFSH Past Medical History ADHD: No Asthma: Yes (DX A BABY) Autoimmune Disease: No Blood Disorders: No Anxiety: Yes Depression: Yes Cancer: No Cardiovascular Problems: No Developmental Delay: No Diabetes: Yes (type 1 since Apr 08, 2010) Patient Takes Glucophage: No Diminished Hearing: No Endocrine: Yes (DKA once before when diagnosed) Gastrointestinal Disorders: Yes Genitourinary: No Immune Disorder: No Musculoskeletal: No Neurologic: No Psychiatric: Yes Reproductive: Yes (HPV) Respiratory: Yes (asthma, uses inhalers) Immunizations Current: Yes Migraines: No Seizures: No Sickle Cell Disease: No Thyroid Disease: No Ulcer: No Influenza Vaccination: No PNEUMOCCOCAL Vaccine (Year): 2 ?: Not : 0 : 1 Dilation and Curettage (D&C): Yes Past Surgical History Gynecologic Surgery: Yes () Oral Surgery: Yes Other Surgery: Yes (teeth extractions.) Social History Alcohol Use: Yes (socially) Tobacco Use: No Substance Use: No Allergies-Medications (Allergen,Severity, Reaction): Coded Allergies: Sulfa (Verified Allergy, Severe, RASH, EXACERBATION OF ASTHMA, 05/24/16) PT DENIES Tomato (Verified Allergy, Unknown, 05/24/16) PT DENIES Reported Meds & Prescriptions Reported Meds & Active Scripts Active Novolog Inj (Insulin Aspart) 1,000 Unit/10 Ml Vial 3 Units SQ TIDAC Lisinopril 2.5 Mg Tab 2.5 Mg PO DAILY Ventolin Hfa 18 GM Inh (Albuterol Sulfate) 90 Mcg/Act Aer 2 Puff INH Q4-6H PRN Lantus Inj (Insulin Glargine) 1,000 Unit/10 Ml Vial 30 Units SQ AFTERNOON Review of Systems Except as stated in HPI: all other systems reviewed are Neg Physical Exam Narrative GENERAL: Well-nourished, well-developed young white female patient mild respiratory distress. SKIN: Warm and dry. HEAD: Normocephalic. EYES: No scleral icterus. No injection or drainage. NECK: Supple, trachea midline. CARDIOVASCULAR: Regular rate and rhythm without murmurs, gallops, or rubs. RESPIRATORY: Breath sounds equal with wheezing bilaterally. No accessory muscle use. GASTROINTESTINAL: Abdomen soft, non-tender, nondistended. MUSCULOSKELETAL: No cyanosis, or edema. BACK: Nontender without obvious deformity. No CVA tenderness. PSYCHIATRIC: No delusional thought processes. No hallucinations. Appropriate judgment and insight. NEUROLOGICAL: Awake and alert. Cranial nerves II through XII intact. Motor and sensory grossly within normal limits. Five out of 5 muscle strength in all muscle groups. Normal speech. Data Data Last Documented VS Vital Signs Date Time Temp Pulse Resp B/P Pulse Ox O2 Delivery O2 Flow Rate FiO2 05/24/16 09:05 135 05/24/16 08:35 22 162/81 98 Room Air 05/24/16 07:31 98.7 05/24/16 07:23 2 Orders Ecg Monitoring (05/24/16 07:16) Iv Access Insert/Monitor (05/24/16 07:16) Oximetry (05/24/16 07:16) Oxygen Administration (05/24/16 07:16) Albuterol-Ipratropium Neb (Duoneb Neb) (05/24/16 07:30) Sodium Chloride 0.9% Flush (Ns Flush) (05/24/16 07:30) Sodium Chlor 0.9% 1000 Ml Inj (Ns 1000 M (05/24/16 07:30) Basic Metabolic Panel (Bmp) (05/24/16 07:16) Albuterol-Ipratropium Neb (Duoneb Neb) (05/24/16 08:00) Prednisone (Deltasone) (05/24/16 08:45) Albuterol-Ipratropium Neb (Duoneb Neb) (05/24/16 08:45) Insulin Human Regular Inj (Novolin R Inj (05/24/16 09:00) Chest, Single Ap (05/24/16 09:17) Labs Laboratory Tests Test 05/24/16 07:20 Sodium Level 137 MEQ/L Potassium Level 3.9 MEQ/L Chloride Level 101 MEQ/L Carbon Dioxide Level 24.1 MEQ/L Anion Gap 12 MEQ/L Blood Urea Nitrogen 13 MG/DL Creatinine 0.67 MG/DL Estimat Glomerular Filtration 111 ML/MIN Rate Random Glucose 462 MG/DL Calcium Level 9.0 MG/DL MDM Medical Decision Making Medical Screen Exam Complete: Yes Emergency Medical Condition: Yes Medical Record Reviewed: Yes Interpretation(s) Laboratory Tests Test 05/24/16 07:20 Random Glucose 462 MG/DL (74-106) Differential Diagnosis Cough, shortness of breathbronchitis versus asthma exacerbation versus pneumonia Narrative Course Patient's initial glucose is fairly elevated. She states that she had just given herself a shot of subcutaneous insulin. After a one-hour period of observation of glucose, her glucose came down to 320 and IV insulin was ordered. She has a normal anion gap and I do not think that this is a DKA. Bicarbonate is normal. Patient was initially given prednisone and DuoNeb's in the ER. After 4 DuoNeb's , she is still wheezing and at this point, my plan would be to consider observation admission for further treatment. She had been seen by urgent care last night as well regarding the same thing. Case is discussed with Dr. Lagos for observation admission. Diagnosis Primary Impression: Asthma exacerbation Additional Impression: Hyperglycemia Admitting Information Admitting Physician Requests: Admit Kiara Walden MD May 24, 2016 07:21
[2016-05-24] MEDS: RESP: ALBUTEROL 2.5 MG/IPRATROPIUM 0.5 MG NEB (SCH) INH ×5 (07:26→10:22)
[2016-05-24] MEDS ORDERED: SODIUM CHLOR 0.9% 1000 ML INJ 1,000 ML IV ONE (07:30)
[2016-05-24] MEDS ORDERED: SODIUM CHLORIDE 0.9% FLUSH 5 ML FLUSH IVF PRN (07:30)
[2016-05-24 07:39] LABS: POTASSIUM 3.9 MEQ/L (3.5-5.1)
[2016-05-24 07:42] LABS: BICARBONATE 24.1 MEQ/L (21.0-32.0)
[2016-05-24] MEDS ORDERED: predniSONE 50 MG TAB PO ONE (08:45)
[2016-05-24] MEDS ORDERED: INSULIN HUMAN REGULAR 1,000 UNITS/10 ML VIAL IV PUSH ONE (09:00)
--- NOTE | 2016-05-24 09:51 | RADHPO ---
EXAM DATE/TIME: 05/24/2016 09:27 [facility] COMPARISON: CHEST SINGLE AP, April 06, 2016, 14:01. INDICATIONS : Short of breath, chest pains MEDICAL HISTORY : Diabetes mellitus type I. asthma SURGICAL HISTORY : None. ENCOUNTER: Initial ACUITY: 4 - 6 days PAIN SCORE: 2/10 LOCATION: Bilateral chest FINDINGS: A single view of the chest demonstrates the lungs to be symmetrically aerated without evidence of mas s, infiltrate or effusion. The cardiomediastinal contours are unremarkable. Osseous structures are intact. CONCLUSION: No acute disease. Miguel A Celaya MD on May 24, 2016 at 9:49 Board Certified Radiologist. This report was verified electronically.
[2016-05-24] MEDS ORDERED: GLUCAGON 1 MG/ML VIAL OTHER PRN (10:00)
[2016-05-24] MEDS ORDERED: SODIUM CHLORIDE 0.9% FLUSH 5 ML FLUSH FLUSH PRN (10:00)
[2016-05-24] MEDS ORDERED: DEXTROSE 50% IN WATER 50 ML VIAL(D50) IV PUSH PRN (10:00)
[2016-05-24] MEDS: SODIUM CHLOR 0.9% 1000 ML INJ 1,000 ML IV SCH (10:25)
[2016-05-24] MEDS: INSULIN NovoLIN REGULAR SUPPLEMENTAL SCALE SQ SCH ×3 (10:55→20:43)
[2016-05-24] MEDS: RESP: ALBUTEROL 2.5 MG/IPRATROPIUM 0.5 MG NEB (SCH) NEB ×2 (15:42→19:53)
--- NOTE | 2016-05-24 15:59 | HHI.HP ---
[facility] No Primary Care Physician Admission Diagnosis asthma exacerbation/hyperglycemia Diagnoses: Chief Complaint: Shortness of breath Travel History International Travel<30 Days: No Contact w/Intl Traveler <30 Da: No Traveled to Known Affected Are: No History of Present Illness 20-year-old female with a medical history significant for type 1 diabetes and asthma who presented to the emergency room with complaint of shortness of breath. The patient reports that she started having cold symptoms about 5 days ago. For the past few days she has been shortness of breath, chest congestion, and cough. She reports she was seen at an outside hospital for asthma exacerbation was given prednisone and nebulizers. However she did not feel the prescription. She presented to the emergency room today with persistent shortness of breath. The patient has since received prednisone and breathing treatments. Currently reports that her breathing is better. Blood glucose was noted to be 462 this morning. She has been given IV insulin. She endorsed a few episode of vomiting associated with the cough. Feeling better from that standpoint. Review of Systems Constitutional: DENIES: Fever, Chills Endocrine: COMPLAINS OF: Polydipsia, Polyuria Eyes: DENIES: Blurred vision, Diplopia Ears, nose, mouth, throat: DENIES: Oral lesions Respiratory: COMPLAINS OF: Cough, Shortness of breath, DENIES: Wheezing, Sputum production Cardiovascular: DENIES: Lower Extremity Edema Gastrointestinal: COMPLAINS OF: Vomiting Genitourinary: DENIES: Dysuria Except as stated in HPI: all other systems reviewed are Neg Past Family Social History Past Medical History Type 1 diabetes Asthma Past Surgical History None Reported Medications Reported Meds & Active Scripts Active Novolog Inj (Insulin Aspart) 1,000 Unit/10 Ml Vial 3 Units SQ TIDAC Lisinopril 2.5 Mg Tab 2.5 Mg PO DAILY Ventolin Hfa 18 GM Inh (Albuterol Sulfate) 90 Mcg/Act Aer 2 Puff INH Q4-6H PRN Lantus Inj (Insulin Glargine) 1,000 Unit/10 Ml Vial 30 Units SQ AFTERNOON Allergies: Coded Allergies: Sulfa (Verified Allergy, Severe, RASH, EXACERBATION OF ASTHMA, 3/12/17) PT DENIES Tomato (Verified Allergy, Unknown, 05/24/16) PT DENIES Family History Breast cancer on her mother's side, grandmother. Social History Patient denies tobacco or chronic alcohol use. She admits to having 2 drinks about once a month. She denies illicit drug use. Physical Exam Vital Signs Vital Signs Date Time Temp Pulse Resp B/P Pulse Ox O2 Delivery O2 Flow Rate FiO2 05/24/16 11:40 130 20 152/88 98 Room Air 05/24/16 09:05 135 05/24/16 08:35 132 22 162/81 98 Room Air 05/24/16 07:31 98.7 135 22 155/84 95 Aerosol Mask 05/24/16 07:23 97 Nasal Cannula 2 05/24/16 07:23 145 24 164/74 97 Nasal Cannula 2 05/24/16 07:05 120 22 94 Room Air 05/24/16 06:56 98.7 120 20 151/80 96 Room Air Physical Exam GENERAL: This is a well-nourished, well-developed patient, in no apparent distress. SKIN: No rashes, ecchymoses or lesions. Cool and dry. HEAD: Atraumatic. Normocephalic. No temporal or scalp tenderness. EYES: Pupils equal round and reactive. Extraocular motions intact. No scleral icterus. No injection or drainage. ENT: Nose without bleeding, purulent drainage or septal hematoma. Throat without erythema, tonsillar hypertrophy or exudate. Uvula midline. Airway patent. NECK: Trachea midline. No JVD or lymphadenopathy. Supple, nontender, no meningeal signs. CARDIOVASCULAR: Regular rate and rhythm without murmurs, gallops, or rubs. RESPIRATORY: Mild tachypnea. Good air movement. Clear to auscultation bilaterally. No wheezing. GASTROINTESTINAL: Abdomen soft, non-tender, nondistended. No hepato-splenomegaly , or palpable masses. No guarding. MUSCULOSKELETAL: Extremities without clubbing, cyanosis, or edema. No joint tenderness, effusion, or edema noted. No calf tenderness. Negative Homans sign bilaterally. NEUROLOGICAL: Awake and alert. Cranial nerves II through XII intact. Motor and sensory grossly within normal limits. Five out of 5 muscle strength in all muscle groups. Normal speech. Laboratory Laboratory Tests Test 05/24/16 07:20 Sodium Level 137 Potassium Level 3.9 Chloride Level 101 Carbon Dioxide Level 24.1 Anion Gap 12 Blood Urea Nitrogen 13 Creatinine 0.67 Estimat Glomerular Filtration 111 Rate Random Glucose 462 Calcium Level 9.0 Result Diagram: 05/24/16 0720 Imaging Chest x-ray reviewed. Unremarkable Assessment and Plan Problem List: (1) Asthma exacerbation ICD Code: J45.901 Status: Acute Plan: Common cold might have contributed to her exacerbation. Some element of noncompliance. - Continue duo nebs every 6 hours while awake. Albuterol as needed - We'll give a lower dose of prednisone. 20 mg daily to be started tomorrow - She will need prescription for an inhaler on discharge. (2) Diabetes ICD Code: E11.9 Status: Acute Plan: Blood sugar in the 400s on admission. Patient has no PCP follow-up. She normally takes 30 units of Lantus in the afternoon and regular sliding scale insulin - Resume long-acting insulin. Accu-Cheks with sliding scale insulin. - Patient counseled that she will need follow-up with a PCP to ensure her diabetes is better controlled. - Expect higher insulin requirement due to steroid use for asthma exacerbation. - On low dose lisinopril for renal protection. (3) Hyperglycemia ICD Code: R73.9 Status: Acute (4) Tachycardia ICD Code: R00.0 Status: Acute Plan: Sinus. Probably related to dehydration. Continue IV fluid and monitor. Assessment and Plan Admit for observation. Continue breathing treatments and IVF. Probable discharge in the morning if she continued to improve. Susi Jackson MD May 24, 2016 15:59
[2016-05-24] MEDS ORDERED: PILL SPLITTER OTHER PRN (16:00)
[2016-05-24] MEDS ORDERED: INSULIN DETEMIR 100 UNITS/ML VIAL SQ SCH (16:00)
[2016-05-24 16:27] LABS: AUTOMATED NEUTROPHIL # 5.5 TH/MM3 (1.8-7.7); EOSINOPHIL % 0.1 % (0.0-4.0); HEMATOCRIT 31.6 % (35.0-46.0); HEMO FLAGS DIFF FINAL; LYMPHOCYTE # 0.7 TH/MM3 (1.0-4.8); MEAN CELL VOLUME 82.8 FL (80.0-100.0); MEAN CORPUSCULAR HEMOGLOBIN 28.1 PG (27.0-34.0); MONO % 3.4 % (0.0-8.0); NEUT % 85.5 % (16.0-70.0); PLATELET COUNT 225 TH/MM3 (150-450); RED BLOOD COUNT 3.82 MIL/MM3 (4.00-5.30); RED CELL DISTRIBUTION WIDTH 13.1 % (11.6-17.2); WHITE BLOOD COUNT 6.5 TH/MM3 (4.0-11.0)
[2016-05-24] MEDS: LISINOPRIL 5 MG TAB PO SCH (16:53)
[2016-05-24] MEDS: INSULIN ASPART 1,000 UNITS/10 ML VIAL SQ SCH (18:10)
[2016-05-24] MEDS: SODIUM CHLORIDE 0.9% FLUSH 5 ML FLUSH FLUSH SCH (20:43)
[2016-05-25 01:20] VITALS: BP 129/59; PULSE 101; RESP 18; TEMP 97.8; O2SAT 98
[2016-05-25] MEDS ORDERED: ACETAMINOPHEN 325 MG TAB PO ONE (03:15)
[2016-05-25] MEDS: RESP: ALBUTEROL 2.5 MG/IPRATROPIUM 0.5 MG NEB (PRN) NEB ×2 (03:17→06:33)
[2016-05-25 03:55] VITALS: BP 127/59; PULSE 124; RESP 16; TEMP 98.8; O2SAT 96
[2016-05-25 05:07] LABS: AUTOMATED NEUTROPHIL # 6.1 TH/MM3 (1.8-7.7); BASOPHIL % 0.4 % (0.0-2.0); EOSINOPHIL # 0.1 TH/MM3 (0-0.4); EOSINOPHIL % 0.9 % (0.0-4.0); HEMATOCRIT 35.4 % (35.0-46.0); HEMO FLAGS DIFF FINAL; LYMPH % 29.7 % (9.0-44.0); MEAN CORPUSCULAR HEMOGLOBIN 28.1 PG (27.0-34.0); MEAN CORPUSCULAR HGB CONC 34.2 % (32.0-36.0); MONO % 9.5 % (0.0-8.0); NEUT % 59.5 % (16.0-70.0); PLATELET COUNT 286 TH/MM3 (150-450); RED BLOOD COUNT 4.32 MIL/MM3 (4.00-5.30); RED CELL DISTRIBUTION WIDTH 13.2 % (11.6-17.2); WHITE BLOOD COUNT 10.3 TH/MM3 (4.0-11.0)
[2016-05-25 05:22] LABS: BICARBONATE 25.6 MEQ/L (21.0-32.0); POTASSIUM 3.6 MEQ/L (3.5-5.1)
[2016-05-25] MEDS: INSULIN NovoLIN REGULAR SUPPLEMENTAL SCALE SQ SCH (06:37)
[2016-05-25 07:11] VITALS: BP 142/56; PULSE 115; RESP 20; TEMP 97.9; O2SAT 97
[2016-05-25] MEDS: LISINOPRIL 5 MG TAB PO SCH (08:32)
[2016-05-25] MEDS: SODIUM CHLORIDE 0.9% FLUSH 5 ML FLUSH FLUSH SCH (08:32)
[2016-05-25] MEDS: INSULIN ASPART 1,000 UNITS/10 ML VIAL SQ SCH (08:32)
[2016-05-25] MEDS: SODIUM CHLOR 0.9% 1000 ML INJ 1,000 ML IV SCH (08:33)
[2016-05-25] MEDS ORDERED: predniSONE 20 MG TAB PO SCH (09:00)
[2016-05-25] MEDS ORDERED: IPRASOL NEB (09:41)
--- NOTE | 2016-05-25 09:44 | HHI.DCPOC ---
Discharge Care Plan Diagnosis: (1) Asthma exacerbation (2) Diabetes (3) Hyperglycemia (4) Tachycardia Goals to Promote Your Health * To prevent worsening of your condition and complications * To maintain your health at the optimal level Directions to Meet Your Goals Take your medications as prescribed Follow your dietary instruction Follow activity as directed Keep your appointments as scheduled Take your immunizations and boosters as scheduled If your symptoms worsen call your PCP, if no PCP go to Urgent Care Center or Emergency Room Smoking is Dangerous to Your Health. Avoid second hand smoke Call the 24-hour hour crisis hotline for domestic abuse at Susi Jackson MD May 25, 2016 09:44
[2016-05-25] MEDS: RESP: ALBUTEROL 2.5 MG/IPRATROPIUM 0.5 MG NEB (SCH) NEB (09:47)
[2016-05-25] MEDS ORDERED: PRED20 PO (09:47)
--- NOTE | 2016-05-25 09:47 | HHI.PR ---
Subjective Remarks Feeling much better. Comfortable to go home. States she will follow up outpatient. Objective Vitals Vital Signs Date Time Temp Pulse Resp B/P Pulse Ox O2 Delivery O2 Flow Rate FiO2 05/25/16 07:11 97.9 115 20 142/56 97 05/25/16 03:55 98.8 124 16 127/59 96 05/25/16 01:20 97.8 101 18 129/59 98 05/24/16 20:20 98.8 87 21 142/63 98 05/24/16 15:55 115 22 119/57 95 05/24/16 11:40 130 20 152/88 98 Room Air I/O 05/24/16 05/24/16 05/24/16 05/25/16 05/25/16 05/25/16 07:00 15:00 23:00 07:00 15:00 23:00 Intake Total 1360 ml Balance 1360 ml Intake Oral 360 ml IV Total 1000 ml # Voids 1 Result Diagram: 05/25/16 0437 05/25/16 0437 Objective Remarks GENERAL: This is a well-nourished, well-developed patient, in no apparent distress. CARDIOVASCULAR: Regular rate and rhythm without murmurs, gallops, or rubs. RESPIRATORY: Clear to auscultation. Breath sounds equal bilaterally. No wheezes , rales, or rhonchi. GASTROINTESTINAL: Abdomen soft, non-tender, nondistended. Normal active bowel sounds MUSCULOSKELETAL: Extremities without clubbing, cyanosis, or edema. NEURO: Alert & Oriented x4 to person, place, time, situation. Moves all ext x4 A/P Problem List: (1) Asthma exacerbation ICD Code: J45.901 Status: Acute Plan: Common cold might have contributed to her exacerbation. Some element of noncompliance. - Continue duo nebs every 6 hours as needed at home. Prescription given - Continue Prednisone 20 mg daily for 5 days. (2) Diabetes ICD Code: E11.9 Status: Acute Plan: Blood sugar in the 400s on admission. Patient has no PCP follow-up. She normally takes 30 units of Lantus in the afternoon and regular sliding scale insulin - - Patient counseled that she will need follow-up with a PCP to ensure her diabetes is better controlled. - Expect higher insulin requirement due to steroid use for asthma exacerbation. - On low dose lisinopril for renal protection. (3) Hyperglycemia ICD Code: R73.9 Status: Acute (4) Tachycardia ICD Code: R00.0 Status: Acute Plan: Sinus. Albuterol nebs may be contributing, Patient has a history of this from review of records. She is asymptomatic. Outpatient follow up with PCP and Cardiology advised. Discharge Planning DC home in good condition F/U with PCP and Cardiology. Case management consulted to assist with arrangement for follow up. Meds: Per med rec Activity: Regular Diet: Diabetic. Susi Jackson MD May 25, 2016 09:47
[2016-05-25 09:58] VITALS: O2SAT 96
[2016-05-25 11:16] VITALS: BP 139/65; PULSE 112; RESP 16; TEMP 97.8
== END 2016-05-25 14:37 | disposition home or self-care (01) ==
LOC: PHED 06:42 → PHEDA 09:26 → NEPHCDU 13:17
PROVIDERS: ADMIT Family Medicine; ATTEND Family Medicine
DX: J45.901 Unspecified asthma with (acute) exacerbation (principal); E10.65 Type 1 diabetes mellitus with hyperglycemia; R00.0 Tachycardia, unspecified; F41.9 Anxiety disorder, unspecified; F32.9 Major depressive disorder, single episode, unspecified; Z88.2 Allergy status to sulfonamides; Z91.018 Allergy to other foods
CPT/HCPCS: 71010; 80048; 82948; 85025; 94640; 94664; 96361; 96374; 99284; G0378; J1815; J7030; J7512

== ENCOUNTER 2016-05-26 18:33 | Inpatient (IN) | payer OTHER ==
[~2016-05-26] VITALS: Ht 165.1 cm; Wt 76.2 kg
[~2016-05-26 18:33] MED LIST changes: +IPRASOL NEB; +PRED20 PO; -SYMB80AE INH
[2016-05-26 18:52] VITALS: BP 129/71; PULSE 126; RESP 20; TEMP 97.8
[2016-05-26] MEDS ORDERED: predniSONE 50 MG TAB PO ONE (19:45)
--- NOTE | 2016-05-26 19:49 | PD ---
HPI Chief Complaint: Respiratory Symptoms Time Seen by Provider: 19:41 Travel History International Travel<30 days: No Contact w/Intl Traveler<30days: No Traveled to known affect area: No History of Present Illness HPI 20-year-old female with history of asthma here for evaluation of shortness of breath. The patient was admitted 2 days ago for asthma exacerbation and discharged yesterday. She states that she has a Symbicort inhaler at home, however she was unable to fill her prescription for albuterol inhaler as well as prednisone because she does not have the funds. She has been coughing greenish sputum. Shortest of breath was worse last night, worse with exertion. PFSH Past Medical History ADHD: No Asthma: Yes Autoimmune Disease: No Blood Disorders: No Anxiety: Yes Depression: No Heart Rhythm Problems: No Cancer: No Cardiovascular Problems: No High Cholesterol: No Chemotherapy: No Chest Pain: No Congestive Heart Failure: No COPD: No Developmental Delay: No Diabetes: Yes Diminished Hearing: No Endocrine: Yes (DKA once before when diagnosed) Gastrointestinal Disorders: Yes Genitourinary: No Immune Disorder: No Musculoskeletal: No Neurologic: No Psychiatric: Yes Reproductive: No Respiratory: Yes Immunizations Current: Yes Migraines: No Radiation Therapy: No Seizures: No Sickle Cell Disease: No Sleep Apnea: No Thyroid Disease: No Ulcer: No PNEUMOCCOCAL Vaccine (Year): 2 : 0 : 1 Dilation and Curettage (D&C): Yes Past Surgical History Gynecologic Surgery: Yes () Oral Surgery: Yes Other Surgery: Yes (teeth extractions.) Social History Alcohol Use: Yes (socially) Tobacco Use: No Substance Use: No Allergies-Medications (Allergen,Severity, Reaction): Coded Allergies: Sulfa (Verified Allergy, Severe, RASH, EXACERBATION OF ASTHMA, 05/26/16) PT DENIES Tomato (Verified Allergy, Unknown, 05/26/16) PT DENIES Reported Meds & Prescriptions Reported Meds & Active Scripts Active Prednisone 20 Mg Tab 20 Mg PO DAILY Duoneb (Ipratropium-Albuterol Neb) 0.5-2.5 Mg/3 Ml Neb 1 Ampule NEB Q4-6H Novolog Inj (Insulin Aspart) 1,000 Unit/10 Ml Vial 3 Units SQ TIDAC Lisinopril 2.5 Mg Tab 2.5 Mg PO DAILY Ventolin Hfa 18 GM Inh (Albuterol Sulfate) 90 Mcg/Act Aer 2 Puff INH Q4-6H PRN Lantus Inj (Insulin Glargine) 1,000 Unit/10 Ml Vial 30 Units SQ AFTERNOON Review of Systems Except as stated in HPI: all other systems reviewed are Neg Physical Exam Narrative GENERAL: Well-developed, well-nourished, no acute distress. SKIN: Warm and dry. No rash. No pallor. HEAD: Atraumatic. Normocephalic. EYES: Pupils equal and round. No scleral icterus. No injection or drainage. ENT: Mucous membranes pink and moist. NECK: Trachea midline. No JVD. CARDIOVASCULAR: Regular rate and rhythm. RESPIRATORY: No accessory muscle use. And expiratory wheezes bilaterally. No rales or rhonchi. Breath sounds equal bilaterally. MUSCULOSKELETAL: No obvious deformities. No clubbing. No cyanosis. No edema. NEUROLOGICAL: Awake and alert. No obvious cranial nerve deficits. Motor grossly within normal limits. Normal speech. PSYCHIATRIC: Appropriate mood and affect; insight and judgment normal. Data Data Last Documented VS Vital Signs Date Time Temp Pulse Resp B/P Pulse Ox O2 Delivery O2 Flow Rate FiO2 05/26/16 20:45 18 94 Room Air 05/26/16 19:45 104 05/26/16 18:52 97.8 129/71 Orders Chest, Single Ap (05/26/16 19:45) Albuterol-Ipratropium Neb (Duoneb Neb) (05/26/16 19:45) Influenzae A/B Antigen (05/26/16 19:45) Prednisone (Deltasone) (05/26/16 19:45) Bedside Glucose DANIELA.AC&HS (05/26/16 19:54) Azithromycin (Zithromax) (05/26/16 21:00) Complete Blood Count With Diff (05/26/16 20:55) Comprehensive Metabolic Panel (05/26/16 20:55) Beta Hydroxybutyrate (Acetone) (05/26/16 20:55) Ecg Monitoring (05/26/16 20:55) Iv Access Insert/Monitor (05/26/16 20:55) Oximetry (05/26/16 20:55) Sodium Chlor 0.9% 1000 Ml Inj (Ns 1000 M (05/26/16 20:55) Sodium Chlor 0.9% 1000 Ml Inj (Ns 1000 M (05/26/16 21:25) Sodium Chloride 0.9% Flush (Ns Flush) (05/26/16 21:00) Beta Hcg (Quant/Titer) (05/26/16 20:55) Albuterol Hfa Inh (Proair Hfa Inh) (05/26/16 21:00) D-Dimer (05/26/16 21:31) Blood Glucose (05/26/16 22:09) Insulin Human Nph/R 70/30 Inj (Novolin 7 (05/26/16 22:45) Labs Laboratory Tests Test 05/26/16 05/26/16 21:22 21:39 White Blood Count 12.1 TH/MM3 Red Blood Count 4.75 MIL/MM3 Hemoglobin 13.1 GM/DL Hematocrit 39.5 % Mean Corpuscular Volume 83.2 FL Mean Corpuscular Hemoglobin 27.6 PG Mean Corpuscular Hemoglobin 33.2 % Concent Red Cell Distribution Width 12.4 % Platelet Count 333 TH/MM3 Mean Platelet Volume 7.9 FL Neutrophils (%) (Auto) 78.1 % Lymphocytes (%) (Auto) 14.4 % Monocytes (%) (Auto) 6.4 % Eosinophils (%) (Auto) 0.6 % Basophils (%) (Auto) 0.5 % Neutrophils # (Auto) 9.4 TH/MM3 Lymphocytes # (Auto) 1.7 TH/MM3 Monocytes # (Auto) 0.8 TH/MM3 Eosinophils # (Auto) 0.1 TH/MM3 Basophils # (Auto) 0.1 TH/MM3 CBC Comment DIFF FINAL Differential Comment Sodium Level 136 MEQ/L Potassium Level 3.6 MEQ/L Chloride Level 98 MEQ/L Carbon Dioxide Level 26.2 MEQ/L Anion Gap 12 MEQ/L Blood Urea Nitrogen 12 MG/DL Creatinine 0.51 MG/DL Estimat Glomerular Filtration 152 ML/MIN Rate Random Glucose 251 MG/DL Calcium Level 9.2 MG/DL Total Bilirubin 0.6 MG/DL Aspartate Amino Transf 16 U/L (AST/SGOT) Alanine Aminotransferase 31 U/L (ALT/SGPT) Alkaline Phosphatase 235 U/L Total Protein 7.8 GM/DL Albumin 3.4 GM/DL Human Chorionic Gonadotropin, LESS THAN 1 Quant MIU/ML B-Hydroxybutyrate 0.78 MMOL/L D-Dimer Quantitative (PE/DVT) 0.39 MG/L [facility] Medical Decision Making Medical Screen Exam Complete: Yes Emergency Medical Condition: Yes Differential Diagnosis Asthma exacerbation, pneumonia, viral illness, URI Narrative Course Initial vital signs showed a heart rate of 126 which improved to 104 without any intervention. The patient was given 3 DuoNeb treatments and oral prednisone. She reports that she no longer feels chest tightness with breathing. Influenza is negative. The patient remains tachycardic. Her fingerstick glucose is 233. Because of persistent tachycardia, IV was established, labs drawn, and the patient was given 2 L of normal saline IV. CBC shows WBC 12.1, hemoglobin 13.1, hematocrit 39.5, platelets 333, neutrophils 78%. CMP is unremarkable aside from random glucose 251. Beta hCG is negative. D-dimer is 0.39. Beta hydroxybutyrate is 0.78. The patient is not in DKA. Chest x-ray: Discoid atelectasis in the right midlung. The patient was made aware of all findings. She reports that her breathing is improved after receiving 3 DuoNeb treatments. She is no longer wheezing. She was given a dose of 500 mg of oral azithromycin in anticipation that she would be discharged home and started on a Z-Olayinka at home for bronchitis. The patient was observed in the emergency department for 2 hours after receiving her DuoNeb treatments and was provided 2 L of normal saline IV and this time. She remains tachycardic with a heart rate of 126. Because of persistent tachycardia, the patient be admitted for overnight observation. Her d-dimer is negative, essentially ruling out PE. Case discussed with hospitalist Dr. Rea who will admit the patient to his service. Diagnosis Primary Impression: Bronchitis Additional Impressions: Hyperglycemia Sinus tachycardia Admitting Information Admitting Physician Requests: Observation Conrad Staley MD May 26, 2016 19:49
[2016-05-26] MEDS: RESP: ALBUTEROL 2.5 MG/IPRATROPIUM 0.5 MG NEB (SCH) INH (19:55)
--- NOTE | 2016-05-26 20:00 | RADHPO ---
EXAM DATE/TIME: 05/26/2016 19:47 [facility] COMPARISON: CHEST SINGLE AP, May 24, 2016, 9:27. INDICATIONS : Chest pressure and productive cough for one week. MEDICAL HISTORY : Asthma. SURGICAL HISTORY : None. ENCOUNTER: Initial ACUITY: 1 week PAIN SCORE: 1/10 LOCATION: Bilateral chest FINDINGS: A single view of the chest demonstrates the lungs to be symmetrically aerated without evidence of mas s, infiltrate or effusion. There is discoid atelectasis in the right midlung. The cardiomediastinal contours are unremarkable. Osseous structures are intact. CONCLUSION: Discoid atelectasis in the right midlung. Adilson Hope MD on May 26, 2016 at 19:58 Board Certified Radiologist. This report was verified electronically.
[2016-05-26 20:17] VITALS: RESP 20; O2SAT 100
[2016-05-26 20:45] VITALS: RESP 18; O2SAT 94
[2016-05-26] MEDS ORDERED: SODIUM CHLOR 0.9% 1000 ML INJ 1,000 ML IV ONE ×2 (20:55→21:25)
[2016-05-26] MEDS ORDERED: SODIUM CHLORIDE 0.9% FLUSH 5 ML FLUSH IVF PRN (21:00)
[2016-05-26] MEDS ORDERED: AZITHROMYCIN 250 MG TAB PO ONE (21:00)
[2016-05-26] MEDS ORDERED: ALBUTEROL SULFATE 90 MCG/ACT HFA 8 GM INHALER INH ONE (21:00)
[2016-05-26 21:38] LABS: AUTOMATED NEUTROPHIL # 9.4 TH/MM3 (1.8-7.7); BASOPHIL # 0.1 TH/MM3 (0-0.2); BASOPHIL % 0.5 % (0.0-2.0); EOSINOPHIL # 0.1 TH/MM3 (0-0.4); EOSINOPHIL % 0.6 % (0.0-4.0); HEMATOCRIT 39.5 % (35.0-46.0); HEMO FLAGS DIFF FINAL; LYMPH % 14.4 % (9.0-44.0); LYMPHOCYTE # 1.7 TH/MM3 (1.0-4.8); MEAN CELL VOLUME 83.2 FL (80.0-100.0); MEAN CORPUSCULAR HEMOGLOBIN 27.6 PG (27.0-34.0); MEAN CORPUSCULAR HGB CONC 33.2 % (32.0-36.0); MONO % 6.4 % (0.0-8.0); NEUT % 78.1 % (16.0-70.0); PLATELET COUNT 333 TH/MM3 (150-450); RED BLOOD COUNT 4.75 MIL/MM3 (4.00-5.30); RED CELL DISTRIBUTION WIDTH 12.4 % (11.6-17.2); WHITE BLOOD COUNT 12.1 TH/MM3 (4.0-11.0)
[2016-05-26 22:15] LABS: CHLORIDE 98 MEQ/L (98-107); POTASSIUM 3.6 MEQ/L (3.5-5.1); SODIUM (NA) 136 MEQ/L (136-145)
[2016-05-26 22:19] LABS: ANION GAP 12 MEQ/L (5-15); BICARBONATE 26.2 MEQ/L (21.0-32.0)
[2016-05-26 22:36] LABS: ALKALINE PHOSPHATASE 235 U/L (45-117); ALT (GPT) 31 U/L (10-53); AST (GOT) 16 U/L (15-37); BETA HCG QUANT LESS THAN 1 MIU/ML (0-5); BETA-HYDROXYBUTYRATE 0.78 MMOL/L (0.00-0.39); BLOOD UREA NITROGEN 12 MG/DL (7-18); GLOMERULAR FILTRATION RATE 152 ML/MIN (>89); TOTAL BILIRUBIN ADULT 0.6 MG/DL (0.2-1.0)
[2016-05-26] MEDS ORDERED: DEXTROSE 50% IN WATER 50 ML VIAL(D50) IV PUSH PRN (22:45)
[2016-05-26] MEDS ORDERED: MAGNESIUM HYDROXIDE SUSP 30 ML CUP PO PRN (22:45)
[2016-05-26] MEDS ORDERED: RESP: ALBUTEROL 2.5 MG/3 ML NEB (PRN) NEB (22:45)
[2016-05-26] MEDS ORDERED: ACETAMINOPHEN 325 MG TAB PO PRN (22:45)
[2016-05-26] MEDS ORDERED: NALOXONE HCL 0.4 MG/ML AMP IV PRN (22:45)
[2016-05-26] MEDS ORDERED: GLUCAGON 1 MG/ML VIAL OTHER PRN (22:45)
[2016-05-26] MEDS ORDERED: INSULIN HUMAN NPH/R 70/30 1,000 UNITS/10 ML VIAL SQ ONE (22:45)
[2016-05-26] MEDS ORDERED: SODIUM CHLORIDE 0.9% FLUSH 5 ML FLUSH FLUSH PRN (22:45)
[2016-05-26] MEDS ORDERED: ONDANSETRON HCL 4 MG/2 ML VIAL IVP PRN (22:45)
[2016-05-26] MEDS: NS + KCL 20 MEQ INJ 1,000 ML IV SCH (23:41)
[2016-05-26 23:55] VITALS: PULSE 122; RESP 16; O2SAT 100
[2016-05-27] VITALS (7 sets, daily range): BP systolic 122–143; BP diastolic 43–77; PULSE 100–128; RESP 16–20; TEMP 96.7–98.7; O2SAT 96–100
[2016-05-27] MEDS ORDERED: INSULIN HUMAN REGULAR 1,000 UNITS/10 ML VIAL SQ ONE (01:15)
[2016-05-27] MEDS ORDERED: PILL SPLITTER OTHER PRN (01:30)
[2016-05-27] MEDS: BENZONATATE 100 MG CAP PO PRN (06:56)
[2016-05-27] MEDS ORDERED: INSULIN ASPART SUPPLEMENTAL SCALE SQ SCH (07:00)
[2016-05-27 07:11] LABS: AUTOMATED NEUTROPHIL # 6.5 TH/MM3 (1.8-7.7); BASOPHIL # 0.2 TH/MM3 (0-0.2); BASOPHIL % 1.9 % (0.0-2.0); HEMATOCRIT 37.5 % (35.0-46.0); HEMO FLAGS DIFF FINAL; LYMPH % 14.6 % (9.0-44.0); LYMPHOCYTE # 1.3 TH/MM3 (1.0-4.8); MEAN CELL VOLUME 82.7 FL (80.0-100.0); MEAN CORPUSCULAR HEMOGLOBIN 27.7 PG (27.0-34.0); MEAN CORPUSCULAR HGB CONC 33.5 % (32.0-36.0); MONO % 8.9 % (0.0-8.0); NEUT % 74.6 % (16.0-70.0); PLATELET COUNT 316 TH/MM3 (150-450); RED BLOOD COUNT 4.53 MIL/MM3 (4.00-5.30); RED CELL DISTRIBUTION WIDTH 12.2 % (11.6-17.2); WHITE BLOOD COUNT 8.8 TH/MM3 (4.0-11.0)
[2016-05-27] MEDS: INSULIN ASPART 1,000 UNITS/10 ML VIAL SQ SCH ×3 (07:31→16:40)
[2016-05-27 07:52] LABS: POTASSIUM 4.2 MEQ/L (3.5-5.1)
[2016-05-27 07:54] LABS: BICARBONATE 21.1 MEQ/L (21.0-32.0)
[2016-05-27] MEDS: SODIUM CHLORIDE 0.9% FLUSH 5 ML FLUSH FLUSH SCH ×2 (08:34→20:58)
[2016-05-27] MEDS: LISINOPRIL 5 MG TAB PO SCH (09:01)
[2016-05-27] MEDS ORDERED: SODIUM CHLOR 0.9% 1000 ML INJ 1,000 ML IV ONE (11:15)
[2016-05-27] MEDS ORDERED: RESP: ALBUTEROL 2.5 MG/IPRATROPIUM 0.5 MG NEB (SCH) ONE (11:32)
--- NOTE | 2016-05-27 11:37 | HHI.HP ---
[facility] Primary Care Physician No Primary Care Physician Admission Diagnosis bronchitis, hyperglycemia, sinus tachycardia Diagnoses: (1) Asthma exacerbation Diagnosis: Principal (2) Sinus tachycardia Diagnosis: Principal (3) Diabetes Diagnosis: Secondary Chief Complaint: Cough, shortness of breath Travel History International Travel<30 Days: No Contact w/Intl Traveler <30 Da: No Traveled to Known Affected Are: No History of Present Illness 20-year-old female with known history of asthma and diabetes who presented to hospital because of shortness of breath, dyspnea, cough with sputum production. Patient was just recent discharge from the hospital a day ago because of asthma exacerbation. Patient states that she continued to have shortness of breath, dyspnea with cough and phlegm production so she came back to the hospital for evaluation. Patient was given breathing treatments emergency department with improvement of her shortness of breath, however she remained tachycardic, so is recommended by the ER physician that patient be observed in the hospital for further recommendations. Upon review of patient's medical records it does appear as if the patient does have history of chronic tachycardia usually associated with asthma exacerbations. Review [place] heart rates [place] [id number]. Upon evaluating the patient this morning she states that she is still having problems with shortness of breath, dyspnea is requesting a nebulizer treatment. Patient denies any abdominal pain , nausea, vomiting, chest pain. She does have diabetes in which she is on Lantus and NovoLog at home with blood sugars from 170-230. However she has had recent hospitalizations with steroid use which has caused heard diabetes to be uncontrolled. Beta hydroxybutyrate mildly elevated 0.78. Review of Systems Constitutional: DENIES: Diaphoretic episodes, Fatigue, Fever, Weight gain, Weight loss, Chills, Dizziness, Change in appetite, Night Sweats Eyes: DENIES: Blurred vision, Diplopia, Eye inflammation, Eye pain, Vision loss , Double Vision Ears, nose, mouth, throat: DENIES: Vertigo, Nasal discharge, Throat pain, Ear Pain, Running Nose, Sinus Pain Respiratory: COMPLAINS OF: Cough, Sputum production, Shortness of breath, DENIES: Apneas, Snoring, Wheezing, Hemoptysis Cardiovascular: DENIES: Chest pain, Palpitations, Syncope, Dyspnea on Exertion , Lower Extremity Edema, Orthopnea Gastrointestinal: DENIES: Abdominal pain, Black stools, Bloody stools, Constipation, Diarrhea, Nausea, Vomiting, Difficulty Swallowing, Anorexia Neurologic: DENIES: Abnormal gait, Headache, Localized weakness, Paresthesias, Seizures, Speech Problems, Tremor, Poor Balance Past Family Social History Past Medical History Asthma Diabetes type 1 Past Surgical History No significant surgeries Reported Medications Reported Meds & Active Scripts Active Prednisone 20 Mg Tab 20 Mg PO DAILY Duoneb (Ipratropium-Albuterol Neb) 0.5-2.5 Mg/3 Ml Neb 1 Ampule NEB Q4-6H Novolog Inj (Insulin Aspart) 1,000 Unit/10 Ml Vial 3 Units SQ TIDAC Lisinopril 2.5 Mg Tab 2.5 Mg PO DAILY Ventolin Hfa 18 GM Inh (Albuterol Sulfate) 90 Mcg/Act Aer 2 Puff INH Q4-6H PRN Lantus Inj (Insulin Glargine) 1,000 Unit/10 Ml Vial 30 Units SQ AFTERNOON Allergies: Coded Allergies: Sulfa (Verified Allergy, Severe, RASH, EXACERBATION OF ASTHMA, 05/26/16) PT DENIES Tomato (Verified Allergy, Unknown, 05/26/16) PT DENIES Family History Reviewed and unremarkable Social History Patient states that she drinks alcohol approximately one time a week. Denies any tobacco or illicit drugs Physical Exam Vital Signs Vital Signs Date Time Temp Pulse Resp B/P Pulse Ox O2 Delivery O2 Flow Rate FiO2 05/27/16 10:15 97.6 123 18 142/63 96 05/27/16 07:09 123 16 138/66 99 Room Air 05/27/16 06:31 126 18 135/61 100 Room Air 05/27/16 06:24 99 Room Air 05/27/16 04:57 100 16 122/43 97 Room Air 05/26/16 23:55 122 16 100 Room Air 05/26/16 20:45 18 94 Room Air 05/26/16 20:17 20 100 05/26/16 19:45 104 20 100 Room Air 05/26/16 18:52 97.8 126 20 129/71 Room Air Physical Exam GENERAL: Well-developed, well-nourished, in no acute distress. alert and orientated HEENT: Head is normocephalic without any lesions or masses noted. Facial features are symmetric. Eyes: Pupils equal round reactive to light. Extraocular muscles are intact. Conjunctivae were clear. Oropharyngeal: Pharynx without any erythema edema. Tongue is midline without deviation. Buccal mucosa is moist without any masses or lesions NECK: Supple without any masses. Trachea midline no deviation. No JVD, no bruits are appreciated CARDIAC: Regular rhythm, regular rate. S1/S2 are heard. No murmurs gallops or rubs. LUNGS: Decreased air movement bilaterally right greater then left. Significant wheeze bilaterally. No rhonchi or rales. No use of accessory muscles on inspiration or expiration. ABDOMEN: Soft, nontender. Nondistended. Bowel sounds heard in all 4 quadrants. No organomegaly or masses. Negative rebound, negative guarding EXTREMITIES: No edema, pulses are equal bilaterally. No cyanosis or clubbing NEUROLOGY: Mood and affect appear appropriate. Cranial nerves II through XII grossly intact. Muscle strength 5/5 in upper and lower extremities bilaterally. Deep tendon reflexes are 2+ in upper and lower extremities bilaterally. Laboratory Laboratory Tests Test 05/26/16 05/26/16 05/27/16 21:22 21:39 07:03 White Blood Count 12.1 8.8 Red Blood Count 4.75 4.53 Hemoglobin 13.1 12.6 Hematocrit 39.5 37.5 Mean Corpuscular Volume 83.2 82.7 Mean Corpuscular Hemoglobin 27.6 27.7 Mean Corpuscular Hemoglobin 33.2 33.5 Concent Red Cell Distribution Width 12.4 12.2 Platelet Count 333 316 Mean Platelet Volume 7.9 7.9 Neutrophils (%) (Auto) 78.1 74.6 Lymphocytes (%) (Auto) 14.4 14.6 Monocytes (%) (Auto) 6.4 8.9 Eosinophils (%) (Auto) 0.6 0.0 Basophils (%) (Auto) 0.5 1.9 Neutrophils # (Auto) 9.4 6.5 Lymphocytes # (Auto) 1.7 1.3 Monocytes # (Auto) 0.8 0.8 Eosinophils # (Auto) 0.1 0.0 Basophils # (Auto) 0.1 0.2 CBC Comment DIFF FINAL DIFF FINAL Differential Comment Sodium Level 136 136 Potassium Level 3.6 4.2 Chloride Level 98 102 Carbon Dioxide Level 26.2 21.1 Anion Gap 12 13 Blood Urea Nitrogen 12 11 Creatinine 0.51 0.43 Estimat Glomerular Filtration 152 185 Rate Random Glucose 251 288 Calcium Level 9.2 9.2 Total Bilirubin 0.6 Aspartate Amino Transf 16 (AST/SGOT) Alanine Aminotransferase 31 (ALT/SGPT) Alkaline Phosphatase 235 Total Protein 7.8 Albumin 3.4 Human Chorionic Gonadotropin, LESS THAN 1 Quant B-Hydroxybutyrate 0.78 D-Dimer Quantitative (PE/DVT) 0.39 Date/Time Procedure Status Source Growth 05/26/16 20:30 Influenza Types A,B Antigen (KACEY) - Final Complete Nasal Washing NEGATIVE FOR FLU A AND B ANTIGEN.... Result Diagram: 05/27/16 0703 05/27/16 0703 Imaging Last Impressions Chest X-Ray 05/26/161944 Signed Impressions: Service Date/Time: Thursday, May 26, 2016 19:47 - CONCLUSION: Discoid atelectasis in the right midlung. Adilson Hope MD Assessment and Plan Assessment and Plan Acute asthma exacerbation: Continue O2 supplementation maintain O2 sats greater 92%. Give Solu-Medrol 60 mg IV 1, start prednisone 40 mg twice daily. Continue nebulizer treatments every 6 hours and every 2 hours as needed. Influenza testing was negative. Continue Zithromax. Obtain sputum culture Sinus tachycardia: Multifactorial, likely secondary to asthma exacerbation, uncontrolled diabetes, nebulizer treatments, steroid use. Review of medical records does indicate [place] [address]. EKG was performed which did indicate sinus tachycardia. Obtain TSH, free T4 Elevated T4, depressed TSH: Possible hyperthyroidism, versus sick euthyroid hyperthyroxemia, given the TSH is depressed also and patient is had 78 pound weight loss since March. Would be inclined to think that patient has hyperthyroidism. Will obtain ultrasound of the thyroid. Patient will need outpatient follow-up with endocrinology for further evaluation and management. Endocrinology is not staff to the hospital. Diabetes type 1: Levemir continue to 30 units daily. Sliding scale insulin, diabetic diet. We'll anticipate diabetes with worse control secondary to steroid use and sickness. DVT prevention: Sequential compression devices Written by Stu Rubio PA-C, acting as scribe for Dr. Lugo on 05/27/16 at 1135. The documentation accurately reflects the work and decisions performed face-to- face by Dr. Lugo on 05/27/16 at 1135. Problem Qualifiers (1) Diabetes: Qualified Code: E10.8 - Type 1 diabetes mellitus with complication Stu Rubio May 27, 2016 11:37
[2016-05-27] MEDS: NS + KCL 20 MEQ INJ 1,000 ML IV SCH ×2 (11:52→18:45)
[2016-05-27] MEDS ORDERED: methylPREDNISolone SOD SUCC 125 MG/2 ML VIAL IVP ONE (12:00)
[2016-05-27 13:25] LABS: FREE T4 5.84 NG/DL (0.76-1.46)
[2016-05-27] MEDS: RESP: ALBUTEROL 2.5 MG/IPRATROPIUM 0.5 MG NEB (SCH) NEB ×2 (15:01→21:04)
[2016-05-27] MEDS: INSULIN ASPART SUPPLEMENTAL SCALE SQ SCH ×2 (16:40→20:45)
[2016-05-27] MEDS: INSULIN DETEMIR 100 UNITS/ML VIAL SQ SCH (16:41)
--- NOTE | 2016-05-27 16:42 | RADHPO ---
EXAM DATE/TIME: 05/27/2016 15:33 [facility] COMPARISON: No previous studies available for comparison. INDICATIONS : Elevatd T4, low TSH. Evaluate hyperthyroidism. MEDICAL HISTORY : Asthma. Diabetic. SURGICAL HISTORY : D&C. ENCOUNTER: Initial ACUITY: 1 day PAIN SCORE: 4/10 LOCATION: Bilateral neck MEASUREMENTS: RIGHT LOBE: 6.5 x 3.2 x 1.6 cm LEFT LOBE: 5.9 x 3.2 x 2.3 cm FINDINGS: RIGHT LOBE: Homogeneous echotexture without nodules or cysts. Vascularity is within normal limits. LEFT LOBE: Homogeneous echotexture without nodules or cysts. Vascularity is within normal limits. ISTHMUS: Normal in size without focal abnormality. CONCLUSION: Thyromegaly without focal discrete lesions characteristic of Graves' disease. Don Jordan MD on May 27, 2016 at 16:40 Board Certified Radiologist. This report was verified electronically.
[2016-05-27] MEDS: RESP: ALBUTEROL 2.5 MG/IPRATROPIUM 0.5 MG NEB (PRN) NEB (19:10)
[2016-05-27] MEDS ORDERED: INSULIN HUMAN REGULAR 1,000 UNITS/10 ML VIAL IVP ONE (20:45)
[2016-05-27] MEDS: predniSONE 20 MG TAB PO SCH (20:55)
[2016-05-28] VITALS (7 sets, daily range): BP systolic 123–163; BP diastolic 49–76; PULSE 114–151; RESP 18–21; TEMP 96.7–98.6; O2SAT 96–98
[2016-05-28] MEDS: BENZONATATE 100 MG CAP PO PRN ×2 (00:31→22:07)
[2016-05-28] MEDS: RESP: ALBUTEROL 2.5 MG/IPRATROPIUM 0.5 MG NEB (PRN) NEB ×2 (00:31→07:16)
[2016-05-28] MEDS ORDERED: RESP: IPRATROPIUM 0.5 MG/2.5 ML NEB NEB ONE (01:45)
[2016-05-28] MEDS ORDERED: methylPREDNISolone SOD SUCC 125 MG/2 ML VIAL IV PUSH ONE (01:45)
[2016-05-28] MEDS: RESP: ALBUTEROL 2.5 MG/IPRATROPIUM 0.5 MG NEB (SCH) NEB ×5 (04:09→23:36)
[2016-05-28] MEDS: NS + KCL 20 MEQ INJ 1,000 ML IV SCH ×2 (05:15→12:17)
[2016-05-28] MEDS: INSULIN ASPART SUPPLEMENTAL SCALE SQ SCH ×4 (06:36→22:06)
[2016-05-28] MEDS: LISINOPRIL 5 MG TAB PO SCH (08:58)
[2016-05-28] MEDS: INSULIN ASPART 1,000 UNITS/10 ML VIAL SQ SCH ×3 (08:58→16:47)
[2016-05-28] MEDS: SODIUM CHLORIDE 0.9% FLUSH 5 ML FLUSH FLUSH SCH ×2 (08:59→22:08)
[2016-05-28] MEDS: predniSONE 20 MG TAB PO SCH ×2 (08:59→22:07)
[2016-05-28] MEDS: DILTIAZEM HCL 30 MG TAB PO SCH ×3 (12:16→22:15)
--- NOTE | 2016-05-28 14:11 | EKG ---
Date Performed: 05/27/2016 Time Performed: 11:01:58 PTAGE: 20 years EKG: Sinus tachycardia. Possible septal infarct - age undetermined Abnormal ECG PREVIOUS TRACING : 04/06/2016 13.44 DOCTOR: Godwin Esparza Interpretating Date/Time 05/28/2016 14:01:02
[2016-05-28] MEDS: INSULIN DETEMIR 100 UNITS/ML VIAL SQ SCH (16:46)
[2016-05-28] MEDS: guaiFENesin/CODEINE SYRUP 200 MG/20 MG/10 ML CUP PO PRN (18:49)
[2016-05-28] MEDS: LORazepam 2 MG/ML VIAL IV PUSH PRN (18:49)
--- NOTE | 2016-05-28 18:54 | HHI.PR ---
Subjective Remarks Patient seen and examined today with Dr. Locke. Patient still with significant tachycardia, appears to be very anxious. I discussed with the patient her medical condition and recent findings. She came mildly tearful. I did reassure her about workup and treatment plan. Objective Vitals Vital Signs Date Time Temp Pulse Resp B/P Pulse Ox O2 Delivery O2 Flow Rate FiO2 05/28/16 12:00 98.2 137 21 132/56 97 05/28/16 08:00 98.6 140 18 132/64 97 05/28/16 04:00 96.7 114 20 123/57 98 05/28/16 00:00 96.8 151 20 163/76 98 05/27/16 20:00 122 05/27/16 20:00 98.7 128 20 143/74 97 I/O 05/27/16 05/27/16 05/27/16 05/28/16 05/28/16 05/28/16 07:00 15:00 23:00 07:00 15:00 23:00 Intake Total 600 ml 720 ml 720 ml Balance 600 ml 720 ml 720 ml Intake Oral 600 ml 720 ml 720 ml # Voids 2 2 3 # Bowel Movements 0 0 0 Result Diagram: 05/27/16 0703 05/27/16 0703 Objective Remarks GENERAL: Well-developed, well-nourished, in no acute distress. alert and orientated HEENT: Head is normocephalic without any lesions or masses noted. Facial features are symmetric. Eyes: Extraocular muscles are intact. Conjunctivae were clear. NECK: Supple without any masses. Trachea midline no deviation. No JVD, CARDIAC: Regular rhythm, tachycardia. S1/S2 are heard. No murmurs gallops or rubs. LUNGS: Faint wheeze noted bilaterally, right greater than left., rhonchi or rales. No use of accessory muscles on inspiration or expiration. ABDOMEN: Soft, nontender. Nondistended. Bowel sounds heard in all 4 quadrants. No organomegaly or masses. Negative rebound, negative guarding EXTREMITIES: No edema, pulses are equal bilaterally. No cyanosis or clubbing NEUROLOGY: Mood and affect appear appropriate. Cranial nerves II through XII grossly intact. Moving all extremities, speech is clear Urinary Catheter: No Vascular Central Line Catheter: No A/P Assessment and Plan Acute asthma exacerbation: Continue O2 supplementation maintain O2 sats greater 92%. Continue prednisone 40 mg twice daily. Continue nebulizer treatments every 6 hours and every 2 hours as needed. Influenza testing was negative. Continue Zithromax. Obtain sputum culture. Add Robitussin-AC for cough, continue Tessalon as needed. Sinus tachycardia: Multifactorial, likely combination of asthma exacerbation, uncontrolled diabetes, nebulizer treatments, steroid use, hyperthyroidism. Review of medical records does indicate patient has [place] [address] since the beginning of this year. Patient has had approximately 8 pound weight loss since March. EKG was performed which did indicate sinus tachycardia. Started Cardizem 30 mg every 6 hours. Would really like to use beta sidra, however patient acute asthma attack and cannot do so at this time. Elevated free T4, elevated free T3, depressed TSH: Questionable primary hyperthyroidism, Graves' disease, hyperthyroiditis versus factitious hyperthyroidism, . ultrasound of the thyroid indicated thyromegaly without any lesions, masses. Vascular appears to be normal. We will order thyroglobulin, thyroid stimulating immunoglobulin, TPO Unable to thyroid uptake scan because of outpatient procedure. Patient will need outpatient follow-up with endocrinology for further evaluation and management. Endocrinology is not staff to the hospital. Diabetes type 1: Levemir 30 units daily. Increase to Novolog 5 units before meals, Increase to high dose Sliding scale insulin, diabetic diet. Continue anticipate diabetes with worse control secondary to steroid use and sickness. DVT prevention: Sequential compression devices Written by Stu Rubio PA-C, acting as scribe for Dr. Locke on 05/28/16 at 1850. The documentation accurately reflects the work and decisions performed face-to- face by Dr. Lugo on 05/28/16 at 1850. Addendum 19:45 Heart rate still at 140 after patient had 2 dose of Cardizem 30 mg we'll increase the dose and monitor Stu Rubio May 28, 2016 18:54 Alissa Locke MD May 28, 2016 19:45 Alissa Locke MD May 28, 2016 19:45
--- NOTE | 2016-05-28 20:23 | RADHPO ---
EXAM DATE/TIME: 05/28/2016 20:16 [facility] COMPARISON: CHEST SINGLE AP, May 26, 2016, 19:47. INDICATIONS : Shortness of breath. MEDICAL HISTORY : Asthma SURGICAL HISTORY : None. ENCOUNTER: Initial ACUITY: 1 week PAIN SCORE: 0/10 LOCATION: Bilateral chest FINDINGS: Mild infiltrate seen at the left lung base, appears to mainly be in the lingula. Right lung appears c lear. No pleural effusion or pneumothorax on either side. CONCLUSION: Lingular pneumonia. Miguel A Burgos MD on May 28, 2016 at 20:21 Board Certified Radiologist. This report was verified electronically.
[2016-05-28] MEDS: AZITHROMYCIN 250 MG TAB PO SCH (22:07)
[2016-05-29] VITALS (7 sets, daily range): BP systolic 115–147; BP diastolic 57–82; PULSE 93–127; RESP 20–35; TEMP 96.3–98.4; O2SAT 20–98
[2016-05-29] MEDS: RESP: ALBUTEROL 2.5 MG/IPRATROPIUM 0.5 MG NEB (SCH) NEB ×4 (03:40→15:18)
[2016-05-29] MEDS: BENZONATATE 100 MG CAP PO PRN ×2 (03:58→18:54)
[2016-05-29] MEDS: LORazepam 2 MG/ML VIAL IV PUSH PRN (04:12)
[2016-05-29] MEDS: INSULIN ASPART SUPPLEMENTAL SCALE SQ SCH ×4 (06:50→22:09)
[2016-05-29] MEDS: predniSONE 20 MG TAB PO SCH (08:56)
[2016-05-29] MEDS: DILTIAZEM HCL 30 MG TAB PO SCH ×3 (08:56→17:25)
[2016-05-29] MEDS: SODIUM CHLORIDE 0.9% FLUSH 5 ML FLUSH FLUSH SCH ×2 (08:56→20:37)
[2016-05-29] MEDS: guaiFENesin/CODEINE SYRUP 200 MG/20 MG/10 ML CUP PO PRN ×2 (08:56→15:32)
[2016-05-29] MEDS: INSULIN ASPART 1,000 UNITS/10 ML VIAL SQ SCH ×4 (08:56→20:37)
[2016-05-29] MEDS: LISINOPRIL 5 MG TAB PO SCH (08:56)
[2016-05-29 13:34] LABS: AUTOMATED NEUTROPHIL # 11.3 TH/MM3 (1.8-7.7); BASOPHIL # 0.2 TH/MM3 (0-0.2); BASOPHIL % 1.4 % (0.0-2.0); HEMATOCRIT 35.8 % (35.0-46.0); LYMPH % 7.7 % (9.0-44.0); MEAN CELL VOLUME 82.4 FL (80.0-100.0); MEAN CORPUSCULAR HEMOGLOBIN 27.4 PG (27.0-34.0); MEAN CORPUSCULAR HGB CONC 33.2 % (32.0-36.0); MONO % 3.2 % (0.0-8.0); NEUT % 87.7 % (16.0-70.0); PLATELET COUNT 341 TH/MM3 (150-450); RED BLOOD COUNT 4.35 MIL/MM3 (4.00-5.30); RED CELL DISTRIBUTION WIDTH 12.2 % (11.6-17.2); WHITE BLOOD COUNT 12.9 TH/MM3 (4.0-11.0)
[2016-05-29 13:41] LABS: HEMO FLAGS DIFF FINAL
[2016-05-29 13:42] LABS: POTASSIUM 3.8 MEQ/L (3.5-5.1)
[2016-05-29 13:45] LABS: BICARBONATE 24.5 MEQ/L (21.0-32.0)
--- NOTE | 2016-05-29 16:03 | HHI.PR ---
Subjective Remarks Patient seen and examined today with Dr. Locke. Patient still with persistent tachycardia from [id number] depending on activity. Patient's symptoms and conditions were discussed with the patient extensively. Notified her that we have been a successful and controlling her heart rate with pill for medication and that she is going to require IV in order to control her heart rate and to be a little stabilized at this time. Notified her that she'll be transferred to the ICU for closer monitoring. The patient did understand. Objective Vitals Vital Signs Date Time Temp Pulse Resp B/P Pulse Ox O2 Delivery O2 Flow Rate FiO2 05/29/16 12:00 96.8 115 21 127/59 96 05/29/16 08:00 97.2 107 23 126/76 95 05/29/16 04:00 96.3 113 24 147/82 20 05/29/16 00:00 98.2 112 20 115/57 96 05/28/16 22:20 118 05/28/16 20:00 96.8 128 20 131/49 98 05/28/16 16:00 97.9 118 19 130/57 96 I/O 05/28/16 05/28/16 05/28/16 05/29/16 05/29/16 05/29/16 07:00 15:00 23:00 07:00 15:00 23:00 Intake Total 720 ml 1320 ml 480 ml Balance 720 ml 1320 ml 480 ml Intake Oral 720 ml 1320 ml 480 ml # Voids 3 8 2 # Bowel Movements 0 0 0 Result Diagram: 05/29/16 1315 05/29/16 1315 Objective Remarks GENERAL: Well-developed, well-nourished, in no acute distress. alert and orientated HEENT: Head is normocephalic without any lesions or masses noted. Facial features are symmetric. Eyes: Extraocular muscles are intact. Conjunctivae were clear. NECK: Supple without any masses. Trachea midline no deviation. No JVD, CARDIAC: Regular rhythm, tachycardia. S1/S2 are heard. No murmurs gallops or rubs. LUNGS: Faint wheeze noted bilaterally, right greater than left., rhonchi or rales. No use of accessory muscles on inspiration or expiration. ABDOMEN: Soft, nontender. Nondistended. Bowel sounds heard in all 4 quadrants. No organomegaly or masses. Negative rebound, negative guarding EXTREMITIES: No edema, pulses are equal bilaterally. No cyanosis or clubbing NEUROLOGY: Mood and affect appear appropriate. Cranial nerves II through XII grossly intact. Moving all extremities, speech is clear Urinary Catheter: No Vascular Central Line Catheter: No A/P Assessment and Plan Acute asthma exacerbation: Continue O2 supplementation maintain O2 sats greater 92%. Continue prednisone 40 mg twice daily. Continue nebulizer treatments every 4 hours and every 2 hours as needed. Influenza testing was negative. Continue Zithromax. Sputum culture with heavy growth normal respiratory jared. Continue Robitussin-AC for cough, continue Tessalon as needed. Sinus tachycardia: Multifactorial, likely combination of asthma exacerbation, uncontrolled diabetes, nebulizer treatments, steroid use, hyperthyroidism. Review of medical records does indicate patient has chronic [place] [id number] since the beginning of this year. Patient has had approximately 8 pound weight loss since March. EKG was performed which did indicate sinus tachycardia. Cardizem 60 mg every 6 hours. Unable to use beta sidra secondary to patient with acute asthma exacerbation. Diagnostic criteria for symptoms related to thyroid storm was score of 15 (heart rate [id number]). Criteria not diagnostic for thyroid storm at this time. However, unable to control patient's heart rate with oral Cardizem. Patient will require beta sidra administration in an acute asthmatic patient, because of patient's age, clinical status, uncontrolled heart rate and possible cardiac deterioration it was recommended by attending physician may need to start beta sidra such as esmolol under close monitoring of the higher education administrator. Critical care physician was called and notified about the patient. He indicates that the patient should be transferred to the main ICU for closer management. He feels that the patient would benefit from tertiary care facility with endocrinology evaluation. Elevated free T4, elevated free T3, depressed TSH: patient has had 78 pound weight loss since March.Questionable primary hyperthyroidism, Graves' disease , acute face thyroiditis versus factitious hyperthyroidism, . ultrasound of the thyroid indicated thyromegaly without any lesions, masses. Vascular appears to be normal. Ordered thyroglobulin, thyroid stimulating immunoglobulin , TPO Unable to thyroid uptake scan because of outpatient procedure. Patient will need outpatient follow-up with endocrinology for further evaluation and management. Endocrinology is not staff to the hospital. Ultrasound of the thyroid indicated thyromegaly without any lesions, masses. Vascular appears to be normal. Discussed with critical care physician who indicates that patient may require transfer to tertiary care facility for endocrinology evaluation. Diabetes type 1: Levemir 30 units daily. Novolog 5 units before meals, high dose Sliding scale insulin, diabetic diet. Continue anticipate diabetes with worse control secondary to steroid use and sickness. DVT prevention: Sequential compression devices Critical care time 60 minutes Written by Stu Rubio PA-C, acting as scribe for Dr. Locke on 05/29/16 at 1600. The documentation accurately reflects the work and decisions performed face-to- face by Dr. Locke on 05/29/16 at 1600. Stu Rubio May 29, 2016 16:02 Alissa Locke MD May 29, 2016 18:52
[2016-05-29] MEDS: INSULIN DETEMIR 100 UNITS/ML VIAL SQ SCH (17:25)
[2016-05-29] MEDS: RESP: ALBUTEROL 2.5 MG/IPRATROPIUM 0.5 MG NEB (PRN) NEB (19:29)
[2016-05-29] MEDS: RESP: LEVALBUTEROL HYDROCHLORIDE 0.63 MG/3 ML NEB (SCH) NEB ×2 (20:00→22:47)
[2016-05-29] MEDS ORDERED: methylPREDNISolone SOD SUCC 125 MG/2 ML VIAL IV PUSH ONE (20:00)
--- NOTE | 2016-05-29 20:12 | PD.CONS ---
[facility] Service Critical Care Medicine Consult Requested By Dr. Locke Reason for Consult Acute asthma exacerbation Left lingular pneumonia Hyperthyroidism Tachycardia Type 1 diabetes with hyperglycemia Primary Care Physician No Primary Care Physician History of Present Illness Patient is a 20-year-old female with known history of asthma and diabetes who presented to hospital 05/27/16 because of shortness of breath, cough with sputum production. Patient was just recently discharged from the hospital a day ago because of asthma exacerbation. Patient was given breathing treatments emergency department with improvement, however she remained tachycardic, so she was admitted to the hospitalist service at [place]. She was treated with DuoNeb breathing treatments, prednisone 40 mg twice a day and azithromycin. She does have Type 1 diabetes for which she is on Lantus and NovoLog at home. Beta hydroxybutyrate on admission mildly elevated 0.78. Patient underwent thyroid workup for tachycardia free T4 was 5.84 free T3 was 12.87 and TSH less than 0.005. Her thyroid ultrasound showed thyromegaly without nodule suggestive of Graves' disease. Patient consistently remained tachycardic sometimes sinus tachycardia up to 170s despite Cardizem 60 mg every 6 hours. For this reason critical care medicine was consulted and patient was transferred to ICU at the [facility] I evaluated the patient in the ICU. Patient remains short of breath in moderate distress with bilateral wheezing. She is tachycardic varying from 120- 130. Chest x-ray from yesterday shows left lingular pneumonia. Patient is currently on azithromycin and I have started cefepime to cover for nosocomial pneumonia. I will discontinue prednisone and start patient on IV Solu-Medrol. DuoNeb will be discontinued and patient is placed on Xopenex. Also for hyperthyroidism, will start patient on Tapazole 10 mg by mouth 3 times a day. DC Cardizem start atenolol 25 twice a day. Use esmolol if needed for rate control. Review of Systems ROS Limitations: Other (as per HPI) Past Family Social History Allergies: Coded Allergies: Sulfa (Verified Allergy, Severe, RASH, EXACERBATION OF ASTHMA, 05/26/16) PT DENIES Tomato (Verified Allergy, Unknown, 05/26/16) PT DENIES Past Medical History Asthma Diabetes type 1 Family History Reviewed and unremarkable Social History Patient states that she drinks alcohol approximately one time a week. Denies any tobacco or illicit drugs Past Surgical History No surgeries in the past Reported Medications Prednisone 20 Mg Tab 20 Mg PO DAILY Duoneb (Ipratropium-Albuterol Neb) 0.5-2.5 Mg/3 Ml Neb 1 Ampule NEB Q4-6H Novolog Inj (Insulin Aspart) 1,000 Unit/10 Ml Vial 3 Units SQ TIDAC Lisinopril 2.5 Mg Tab 2.5 Mg PO DAILY Ventolin Hfa 18 GM Inh (Albuterol Sulfate) 90 Mcg/Act Aer 2 Puff INH Q4-6H PRN Lantus Inj (Insulin Glargine) 1,000 Unit/10 Ml Vial 30 Units SQ AFTERNOON Active Ordered Medications Reviewed Family History Reviewed Social History Occasional alcohol use. No tobacco use Physical Exam Vital Signs Vital Signs Date Time Temp Pulse Resp B/P Pulse Ox O2 Delivery O2 Flow Rate FiO2 05/29/16 16:00 98.2 98 23 142/78 96 05/29/16 12:00 96.8 115 21 127/59 96 05/29/16 08:00 97.2 107 23 126/76 95 05/29/16 04:00 96.3 113 24 147/82 20 05/29/16 00:00 98.2 112 20 115/57 96 05/28/16 22:20 118 Physical Exam GENERAL: Well-developed, well-nourished, in no moderate distress due to shortness of breath HEENT: Head is normocephalic Facial features are symmetric. Eyes: Pupils equal round reactive to light. Extraocular muscles are intact. Conjunctivae were clear. Oral cavity moist NECK: Supple thyromegaly without nodules palpated. Trachea midline no deviation. No JVD CARDIAC: Tachycardic. S1/S2 are heard. No murmurs gallops or rubs. LUNGS: Decreased air movement bilaterally with bilateral diffuse wheezing. No. Some use of accessory muscles on inspiration ABDOMEN: Soft, nontender. Nondistended. Bowel sounds heard in all 4 quadrants. No organomegaly or masses. Negative rebound, negative guarding EXTREMITIES: No edema, pulses are equal bilaterally. No cyanosis or clubbing NEUROLOGY: Alert awake oriented no focal deficits. Laboratory Laboratory Tests Test 05/29/16 13:15 White Blood Count 12.9 Red Blood Count 4.35 Hemoglobin 11.9 Hematocrit 35.8 Mean Corpuscular Volume 82.4 Mean Corpuscular Hemoglobin 27.4 Mean Corpuscular Hemoglobin 33.2 Concent Red Cell Distribution Width 12.2 Platelet Count 341 Mean Platelet Volume 7.6 Neutrophils (%) (Auto) 87.7 Lymphocytes (%) (Auto) 7.7 Monocytes (%) (Auto) 3.2 Eosinophils (%) (Auto) 0.0 Basophils (%) (Auto) 1.4 Neutrophils # (Auto) 11.3 Lymphocytes # (Auto) 1.0 Monocytes # (Auto) 0.4 Eosinophils # (Auto) 0.0 Basophils # (Auto) 0.2 CBC Comment DIFF FINAL Differential Comment Sodium Level 136 Potassium Level 3.8 Chloride Level 100 Carbon Dioxide Level 24.5 Anion Gap 12 Blood Urea Nitrogen 15 Creatinine 0.75 Estimat Glomerular Filtration 98 Rate Random Glucose 311 Calcium Level 9.2 Date/Time Procedure Status Source Growth 05/28/16 20:00 Gram Stain - Final Resulted Sputum Expectorated Sputum 05/28/16 20:00 Sputum Culture - Preliminary Resulted Sputum Expectorated Sputum HEAVY GROWTH NORMAL RESPIRATORY YANICK... 05/26/16 20:30 Influenza Types A,B Antigen (KACEY) - Final Complete Nasal Washing NEGATIVE FOR FLU A AND B ANTIGEN.... Result Diagram: 05/29/16 1315 05/29/16 1315 Imaging Chest x-ray shows left lingular infiltrate Thyroid ultrasound shows thyromegaly without nodules concerning for Graves' disease Assessment and Plan Assessment and Plan ASSESSMENT: Acute asthma exacerbation Left lingular pneumonia/HCAP Hyperthyroidism/Probable Grave's disease Tachycardia Type 1 diabetes with hyperglycemia PLAN: NEURO: -Minimize sedation. Use Ativan when necessary if needed for anxiety RESP: Acute asthma exacerbation Left lingular pneumonia -Nasal cannula oxygen to keep oxygen saturation more than 92% -Discontinue DuoNeb. Xopenex every 4 hours scheduled and every 2 hours when necessary -Add Symbicort 2 puffs twice a day -DC prednisone start IV Solu-Medrol 60 mg 1 and 60 every 6 hours -Continue azithromycin and add cefepime 2 g IV every 8 hours CV: Sinus tachycardia -Sinus tachycardia secondary to beta agonist and hyperthyroidism -Discontinue Cardizem start atenolol 25 mg by mouth twice a day -Use esmolol infusion as needed to control heart rate, keep hydrated without 110 - -Normal saline IV fluids 125 ml per hour -Check 2 d echo GI: -1800 ADA diet. Protonix for GI prophylaxis : -Monitor renal function closely. ID: Left lingular pneumonia -Check blood cultures. Continue azithromycin and add cefepime 2 g IV every 8 hours (need to cover for nosocomial pneumonia, patient was recently discharged from hospital) -Sputum culture negative on admission HEME: -Monitor CBC, CMP, as the patient is getting started on methimazole ENDO: Hypothyroidism/probable Graves' disease Type 1 diabetes -No evidence of thyroid storm, but clearly hyperthyroid (FT4-5.84, FT3-12.87, TSH<0.005, thyroid US -thyromegaly without nodules consistent with Graves' disease -Start Tapazole 10 mg every 8 hours. Check baseline CBC CMP, and check daily. Check free T3 and free T4 on 06/01/16 -DC Cardizem, start atenolol 25 mg by mouth twice a day, use esmolol infusion to target heart rate less than 110 -Continue IV steroids for hypothyroidism and asthma exacerbation -Continue Levemir and pre-meal NovoLog with sliding scale -Patient counseled about getting mechanical tech and primary care appointments after discharge. She is agreeable to both -I have explained to her the possible side effects of Tapazole and she needs to be monitored closely PROPH: -Bilateral lower extremity SCDs. Protonix for GI prophylaxis. Start Lovenox 40 mg subcutaneous daily-patient is more or less bedbound due to severe asthma exacerbation LINES: -DC right upper extremity PICC. Utilize peripheral IVs CC time 40 min Code Status Full Discussed Condition With With patient and bedside RN Robinson Grady MD May 29, 2016 20:12
[2016-05-29] MEDS: AZITHROMYCIN 250 MG TAB PO SCH (20:37)
[2016-05-29] MEDS: SODIUM CHLOR 0.9% 1000 ML INJ 1,000 ML IV SCH (21:00)
[2016-05-29] MEDS ORDERED: cefTRIAXone INJ 2,000 MG in SODIUM CHLORIDE 0.9% INJ 100 ML IV SCH (21:00)
[2016-05-29] MEDS ORDERED: DILTIAZEM HCL 90 MG TAB PO SCH (21:00)
--- NOTE | 2016-05-29 21:13 | EKG ---
Date Performed: 05/29/2016 Time Performed: 14:50:26 PTAGE: 20 years EKG: Sinus tachycardia. Poor R wave progression - probable normal variant Borderline ECG NO SIGN IFICANT CHANGE FROM PRIOR ELECTROCARDIOGRAM. PREVIOUS TRACING : 05/27/2016 11.01 DOCTOR: Jean Vanessa Interpretating Date/Time 05/29/2016 21:13:12
--- NOTE | 2016-05-29 21:26 | RADRPT ---
EXAM DATE/TIME: 05/29/2016 21:13 [place] COMPARISON: CHEST SINGLE AP, May 26, 2016, 19:47. INDICATIONS : Shortness of breath. Evaluate for pneumonia. MEDICAL HISTORY : Asthma. SURGICAL HISTORY : None. ENCOUNTER: Initial ACUITY: 4 - 6 days PAIN SCORE: 0/10 LOCATION: Bilateral chest FINDINGS: A single view of the chest demonstrates the lungs to be symmetrically aerated without evidence of mas s, infiltrate or effusion. The cardiomediastinal contours are unremarkable. Osseous structures are intact. CONCLUSION: No acute disease. Adilson Hope MD on May 29, 2016 at 21:24 Board Certified Radiologist. This report was verified electronically.
[2016-05-29 22:03] LABS: BLOOD GAS VENOUS BASE EXCESS 0.4 mmol/L (-2-2); BLOOD GAS VENOUS HCO3 24 mmol/L (22-26); BLOOD GAS VENOUS O2 CONTENT 14.1 Vol % (9.0-17.0); BLOOD GAS VENOUS O2 HGB SAT 87 % (70-76); BLOOD GAS VENOUS PCO2 33 mmHg (44-48); BLOOD GAS VENOUS PO2 49 mmHg (35-40); BLOOD GAS VENOUS pH 7.47 (7.360-7.400); CRITICAL VALUE NO; DRAW SITE LT BRACHIAL; FIO2 21 %; TEMP CORR TO 98.6
[2016-05-29] MEDS: METHIMAZOLE 10 MG TAB PO SCH (22:08)
[2016-05-29] MEDS: BUDESONIDE-FORMOTEROL 160/4.5 MCG INHALER INH SCH (22:08)
[2016-05-29] MEDS: ATENOLOL 25 MG TAB PO SCH (22:08)
[2016-05-29] MEDS: ENOXAPARIN SODIUM 40 MG/0.4 ML SYRINGE SQ SCH (22:09)
[2016-05-29 22:13] LABS: ALKALINE PHOSPHATASE 189 U/L (45-117); ALT (GPT) 24 U/L (10-53); ANION GAP 10 MEQ/L (5-15); AST (GOT) 10 U/L (15-37); BICARBONATE 26.2 MEQ/L (21.0-32.0); BLOOD UREA NITROGEN 18 MG/DL (7-18); CHLORIDE 99 MEQ/L (98-107); GLOMERULAR FILTRATION RATE 95 ML/MIN (>89); POTASSIUM 3.1 MEQ/L (3.5-5.1); SODIUM (NA) 135 MEQ/L (136-145); TOTAL BILIRUBIN ADULT 0.3 MG/DL (0.2-1.0)
[2016-05-29] MEDS ORDERED: POTASSIUM PHOSPHATE INJ 30 MMOL in SODIUM CHLOR 0.9% 250 ML INJ 250 ML IV PRN (22:30)
[2016-05-29] MEDS ORDERED: POTASSIUM CHLOR 20 MEQ PREMIX 100 ML IV PRN ×2 (22:30)
[2016-05-29] MEDS ORDERED: MAGNESIUM OXIDE 400 MG TAB PO PRN (22:30)
[2016-05-29] MEDS ORDERED: POTASSIUM PHOSPHATE MONOBASIC 500 MG TAB PO/TUBE PRN (22:30)
[2016-05-29] MEDS ORDERED: MAGNESIUM SULFATE INJ 2 GM in SODIUM CHLORIDE 0.9% INJ 96 ML IV PRN (22:30)
[2016-05-29] MEDS ORDERED: POTASSIUM PHOSPHATE MONOBASIC 500 MG TAB PO PRN (22:30)
[2016-05-29] MEDS ORDERED: SODIUM PHOSPHATE INJ 30 MMOL in SODIUM CHLOR 0.9% 250 ML INJ 240 ML IV PRN (22:30)
[2016-05-29] MEDS ORDERED: POTASSIUM CHLORIDE 10 MEQ CONTROLLED RELEASE TAB PO ONE (22:30)
[2016-05-29] MEDS ORDERED: POTASSIUM CHLOR 40 MEQ PREMIX 100 ML IV PRN ×2 (22:30)
[2016-05-29] MEDS ORDERED: MAGNESIUM SULFATE INJ 4 GM in SODIUM CHLORIDE 0.9% INJ 92 ML IV PRN (22:30)
[2016-05-29] MEDS ORDERED: CHLORHEXIDINE GLUCONATE 2 % 1 PACK (2 CLOTHS)(extra cloths) TOP PRN (22:45)
[2016-05-30] VITALS (12 sets, daily range): BP systolic 119–137; BP diastolic 56–64; PULSE 90–139; RESP 22–31; TEMP 98–98.6; O2SAT 94–97
[2016-05-30] MEDS: methylPREDNISolone SOD SUCC 125 MG/2 ML VIAL IV PUSH SCH ×5 (00:35→23:38)
[2016-05-30] MEDS: guaiFENesin/CODEINE SYRUP 200 MG/20 MG/10 ML CUP PO PRN (00:35)
[2016-05-30] MEDS: INSULIN ASPART 1,000 UNITS/10 ML VIAL SQ SCH ×7 (00:35→23:38)
[2016-05-30] MEDS: BENZONATATE 100 MG CAP PO PRN ×4 (02:44→22:06)
[2016-05-30] MEDS: RESP: LEVALBUTEROL HYDROCHLORIDE 0.63 MG/3 ML NEB (SCH) NEB ×5 (02:58→19:23)
[2016-05-30] MEDS: CHLORHEXIDINE GLUCONATE 2 % 1 PACK (2 CLOTHS)(taper/protocol) TOP SCH (04:00)
[2016-05-30] MEDS: SODIUM CHLOR 0.9% 1000 ML INJ 1,000 ML IV SCH (04:16)
[2016-05-30] MEDS: CEFEPIME INJ 2,000 MG in SODIUM CHLORIDE 0.9% INJ 100 ML IV SCH ×3 (04:16→20:33)
[2016-05-30] MEDS: METHIMAZOLE 10 MG TAB PO SCH ×3 (04:18→22:06)
--- NOTE | 2016-05-30 04:27 | HHI.CCPN ---
Subjective Remarks/Hospital Course Patient is a 20-year-old female with known history of asthma and diabetes who presented to hospital 05/27/16 because of shortness of breath, cough with sputum production. Patient was just recently discharged from the hospital a day ago because of asthma exacerbation. Patient was given breathing treatments emergency department with improvement, however she remained tachycardic, so she was admitted to the hospitalist service at [place]. She was treated with DuoNeb breathing treatments, prednisone 40 mg twice a day and azithromycin. She does have Type 1 diabetes for which she is on Lantus and NovoLog at home. Beta hydroxybutyrate on admission mildly elevated 0.78. Patient underwent thyroid workup for tachycardia free T4 was 5.84 free T3 was 12.87 and TSH less than 0.005. Her thyroid ultrasound showed thyromegaly without nodule suggestive of Graves' disease. Patient consistently remained tachycardic sometimes sinus tachycardia up to 170s despite Cardizem 60 mg every 6 hours. For this reason critical care medicine was consulted and patient was transferred to ICU at the [facility]. I evaluated the patient in the ICU. Patient remains short of breath in moderate distress with bilateral wheezing. She is tachycardic varying from 120-130. Chest x-ray from yesterday shows left lingular pneumonia. Patient is currently on azithromycin and I have started cefepime to cover for nosocomial pneumonia. I will discontinue prednisone and start patient on IV Solu-Medrol. DuoNeb will be discontinued and patient is placed on Xopenex. Also for hyperthyroidism, will start patient on Tapazole 10 mg by mouth 3 times a day. DC Cardizem start atenolol 25 twice a day. Use esmolol if needed for rate control. SUBJ 05/30/16: Complaints of intermittent cough ans still wheezing, HR improved. Inadequate blood sugar control. Levemir changed to 25 Q12. Cardizem DCd and Atenolol started yesterday Objective Vital Signs Date Time Temp Pulse Resp B/P Pulse Ox O2 Delivery O2 Flow Rate FiO2 05/30/16 02:00 93 05/30/16 00:00 98.6 27 119/56 96 05/27/16 07:09 Room Air Intake and Output 05/29/16 05/29/16 05/30/16 08:00 16:00 00:00 Intake Total 480 ml 2100 ml Balance 480 ml 2100 ml Result Diagram: 05/29/16 1315 05/29/164 Other Results Laboratory Tests Test 05/29/16 21:33 Blood Gas Puncture Site LT BRACHIAL Blood Gas Patient Temperature 98.6 Venous Blood pH 7.47 (7.360-7.400) Venous Blood Partial Pressure 33 mmHg (44-48) CO2 Venous Blood Partial Pressure 49 mmHg (35-40) O2 Venous Blood HCO3 24 mmol/L (22-26) Venous Blood Oxygen Saturation 87 % (70-76) Venous Blood Oxygen Content 14.1 Vol % (9.0-17.0) Venous Blood Base Excess 0.4 mmol/L (-2-2) Blood Gas Inspired Oxygen 21 % Imaging Chest x-ray shows left lingular infiltrate Thyroid ultrasound shows thyromegaly without nodules concerning for Graves' disease Objective Remarks GENERAL: Well-developed, well-nourished, in mild distress due to shortness of breath HEENT: Head is normocephalic. Pupils equal round reactive to light. Extraocular muscles are intact. Conjunctivae were clear. Oral cavity moist NECK: Thyromegaly without nodules palpated. Trachea midline no deviation. No JVD CARDIAC: Tachycardic, but improved. S1/S2 are heard. No murmurs gallops or rubs. LUNGS: Decreased air movement bilaterally with bilateral mild wheezing. Minimal use of accessory muscles on inspiration ABDOMEN: Soft, nontender. Nondistended. Bowel sounds heard in all 4 quadrants. No organomegaly or masses. Negative rebound, negative guarding EXTREMITIES: No edema, pulses are equal bilaterally. No cyanosis or clubbing. Mild resting tremor NEUROLOGY: Alert awake oriented no focal deficits. A/P Assessment and Plan ASSESSMENT: Acute asthma exacerbation Left lingular pneumonia/HCAP Hyperthyroidism/Probable Grave's disease Tachycardia Type 1 diabetes with hyperglycemia PLAN: NEURO: -Minimize sedation. Use Ativan when necessary if needed for anxiety RESP: Acute asthma exacerbation Left lingular pneumonia -Nasal cannula oxygen to keep oxygen saturation more than 92% -Xopenex every 4 hours scheduled and every 2 hours when necessary. Symbicort 2 puffs twice a day -IV Solu-Medrol 60 every 6 hours -Continue azithromycin 500 mg daily and cefepime 2 g IV every 8 hours CV: Sinus tachycardia -Sinus tachycardia secondary to beta agonist and hyperthyroidism -Continue atenolol 25 mg by mouth twice a day -Use esmolol infusion as needed to control heart rate, target < 110 -Normal saline IV fluids 125 ml per hour -2 d echo pending GI: -1800 ADA diet. Protonix for GI prophylaxis : -Monitor renal function closely. ID: Left lingular pneumonia -F/U blood cultures. Continue azithromycin and cefepime 2 g IV every 8 hours -Sputum culture negative on admission HEME: -Monitor CBC, CMP, as the patient is getting started on methimazole ENDO: Hypothyroidism/probable Graves' disease Type 1 diabetes -No evidence of thyroid storm, but clearly hyperthyroid (FT4-5.84, FT3-12.87, TSH<0.005, thyroid US -thyromegaly without nodules consistent with Graves' disease) -Continue Tapazole 10 mg every 8 hours. Baseline CBC CMP, and check daily. Check free T3 and free T4 on 06/01/16 -Monitor for bone marrow suppression and liver enzyme elevation -Continue atenolol 25 mg by mouth twice a day, use esmolol infusion if needed to target heart rate less than 110 -Continue IV steroids for hypothyroidism and asthma exacerbation -Increase Levemir to 25 q12 and continue pre-meal NovoLog with sliding scale -Patient counseled about getting assembler surgical garment and primary care appointments after discharge. She is agreeable to both -I have explained to her the possible side effects of Tapazole and she needs to be monitored closely PROPH: -Bilateral lower extremity SCDs. Protonix for GI prophylaxis. Lovenox 40 mg subcutaneous daily-patient is more or less bedbound due to severe asthma exacerbation LINES: -Utilize peripheral IVs Level 2 Robinson Grady MD May 30, 2016 04:27
[2016-05-30] MEDS ORDERED: guaiFENesin/DEXTROMETHORPHAN 200 MG/20 MG/10 ML CUP PO PRN (05:00)
[2016-05-30 05:15] LABS: AUTOMATED NEUTROPHIL # 10.8 TH/MM3 (1.8-7.7); BASOPHIL % 0.1 % (0.0-2.0); HEMATOCRIT 35.7 % (35.0-46.0); HEMO FLAGS DIFF FINAL; LYMPH % 7.1 % (9.0-44.0); LYMPHOCYTE # 0.8 TH/MM3 (1.0-4.8); MEAN CELL VOLUME 82.5 FL (80.0-100.0); MEAN CORPUSCULAR HEMOGLOBIN 27.3 PG (27.0-34.0); MEAN CORPUSCULAR HGB CONC 33.1 % (32.0-36.0); MONO % 1.7 % (0.0-8.0); NEUT % 91.1 % (16.0-70.0); PLATELET COUNT 304 TH/MM3 (150-450); RED BLOOD COUNT 4.32 MIL/MM3 (4.00-5.30); RED CELL DISTRIBUTION WIDTH 12.8 % (11.6-17.2); WHITE BLOOD COUNT 11.8 TH/MM3 (4.0-11.0)
[2016-05-30 05:39] LABS: BICARBONATE 25.2 MEQ/L (21.0-32.0); POTASSIUM 3.9 MEQ/L (3.5-5.1)
[2016-05-30] MEDS: INSULIN ASPART SUPPLEMENTAL SCALE SQ SCH ×4 (06:01→20:34)
[2016-05-30] MEDS: RESP: LEVALBUTEROL HYDROCHLORIDE 0.63 MG/3 ML NEB (PRN) NEB ×2 (06:04→22:20)
[2016-05-30] MEDS: INSULIN DETEMIR 100 UNITS/ML VIAL SQ SCH ×2 (08:00→20:33)
[2016-05-30] MEDS: BUDESONIDE-FORMOTEROL 160/4.5 MCG INHALER INH SCH ×2 (08:20→20:32)
[2016-05-30] MEDS: ATENOLOL 25 MG TAB PO SCH ×2 (08:20→20:32)
[2016-05-30] MEDS: PANTOPRAZOLE SOD 40 MG DELAYED RELEASE TAB PO SCH (08:20)
[2016-05-30] MEDS: LISINOPRIL 5 MG TAB PO SCH (08:20)
[2016-05-30] MEDS: SODIUM CHLORIDE 0.9% FLUSH 5 ML FLUSH FLUSH SCH ×2 (09:00→20:32)
--- NOTE | 2016-05-30 09:10 | EC ---
Study Study Date:05/30/2016 STUDY CONCLUSIONS SUMMARY - Left ventricle: The cavity size was normal. Wall thickness was normal. Systolic function was vigorous. The estimated ejection fraction was in the range of 65% to 70%. Wall motion was normal; there were no regional wall motion abnormalities. - Aortic valve: Valve area: 2.49cm^2(VTI). Valve area: 2.26cm^2 (Vmax). - Pulmonary arteries: PA peak pressure: 40mm Hg (S). If LV function is below 40, please consider prescribing an ACEI or ARB or document rationale for non-use. PROCEDURE DATA STUDY STATUS: Elective. Procedure: Transthoracic echocardiography. Image quality was good. Scanning was performed from the parasternal, apical, and subcostal acoustic windows. Study completion: The patient tolerated the procedure well. Transthoracic echocardiography. M-mode, complete 2D, complete spectral Doppler, and color Doppler. Height: Height: 65in. Weight: Weight: 172.6lb. Body mass index: BMI: 28.8kg/m^2. Body surface area: BSA: 1.86m^2. Patient status: Inpatient. CARDIAC ANATOMY LEFT VENTRICLE: The cavity size was normal. Wall thickness was normal. Systolic function was vigorous. The estimated ejection fraction was in the range of 65% to 70%. Wall motion was normal; there were no regional wall motion abnormalities. AORTIC VALVE: Trileaflet; normal thickness leaflets. Doppler: Transvalvular velocity was within the normal range. There was no stenosis. No regurgitation. Valve area: 2.49cm^2(VTI). Indexed valve area: 1.34cm^2/m^2 (VTI). Valve area: 2.26cm^2 (Vmax). Indexed valve area: 1.22cm^2/m^2 (Vmax). Mean gradient: 6mm Hg (S). Peak gradient: 11mm Hg (S). AORTA: Aortic root: The aortic root was normal in size. MITRAL VALVE: Structurally normal valve. Doppler: Transvalvular velocity was within the normal range. There was no evidence for stenosis. Trace regurgitation. Peak gradient: 4mm Hg (D). LEFT ATRIUM: The atrium was normal in size. RIGHT VENTRICLE: The cavity size was normal. Wall thickness was normal. PULMONIC VALVE: Doppler: Transvalvular velocity was within the normal range. There was no evidence for stenosis. No regurgitation. TRICUSPID VALVE: Structurally normal valve. Doppler: Transvalvular velocity was within the normal range. Trace regurgitation. PULMONARY ARTERY: The main pulmonary artery was normal-sized. Systolic pressure was within the normal range. RIGHT ATRIUM: The atrium was normal in size. PERICARDIUM: There was no pericardial effusion. SYSTEMIC VEINS: Inferior vena cava: The vessel was normal in size. Patient weight: 172.6lb _Ejection fraction:_ 65-75% _Fractional shortening:_ 32% up to 5Kg 5-11.5Kg 11.6-22.9Kg 23-45Kg 45-57Kg Aortic Root 7-13 <17 13-22 17-27 17-27 LA diam 6-13 <23 24-38 33-47 37-40 RVID 10-17 7-15 7-15 7-18 8-17 LVIDd 12-22 <32 24-38 33-47 37-40 LVPW 2-4 3-6 5-7 6-8 7-8 IVS 2-4 3-6 5-7 6-8 7-8 BASIC MEASUREMENTS ADULT NORMAL Left ventricle LV internal dimension, ED, chordal *53.3 mm 43-52 level, PLAX LV internal dimension, ES, chordal 31.5 mm 23-38 level, PLAX Fractional shortening, chordal level, 41 % >29 PLAX LV posterior wall thickness, ED 7.37 mm IVS/LVPW ratio, ED 0.98 <1.3 Ventricular septum Septal thickness, ED 7.25 mm Aortic valve Leaflet separation 23 mm 15-26 Aorta Root diameter, ED 30 mm Left atrium Anterior-posterior dimension 35 mm Anterior-posterior dimension index 1.88 cm/m^2 <2.2 BASIC MEASUREMENTS ADULT NORMAL Aortic valve Leaflet separation 23 mm 15-26 DOPPLER MEASUREMENTS ADULT NORMAL Main pulmonary artery Pressure, S *40 mm Hg =30 Aortic valve Peak velocity, S 168 cm/s Mean velocity, S 115 cm/s VTI, S 29.4 cm Mean gradient, S 6 mm Hg Peak gradient, S 11 mm Hg Valve area, VTI 2.49 cm^2 Valve area index, VTI 1.34 cm^2/m^2 Valve area, Vmax 2.26 cm^2 Valve area index, Vmax 1.22 cm^2/m^2 Mitral valve Peak E-wave velocity 98.7 cm/s Peak A-wave velocity 60.7 cm/s Deceleration time *246 ms 150-230 Peak gradient, D 4 mm Hg Peak E/A ratio 1.6 Tricuspid valve Regurgitant peak velocity 288 cm/s Peak RV-RA gradient, S 33 mm Hg Maximal regurgitant velocity 288 cm/s Systemic veins Estimated CVP 10 mm Hg Right ventricle RV pressure, S *43 mm Hg <30 Pulmonic valve Peak velocity, S 88 cm/s LEGEND: Mean values are shown as u=mean value. Asterisk (*) echeverria values outside specified normal range. Prepared and signed by Jean Vanessa [id number]
[2016-05-30] MEDS: AZITHROMYCIN 250 MG TAB PO SCH (20:32)
[2016-05-30] MEDS: ZOLPIDEM TARTRATE 5 MG TAB PO PRN (22:06)
[2016-05-30] MEDS: ENOXAPARIN SODIUM 40 MG/0.4 ML SYRINGE SQ SCH (22:06)
[2016-05-31] VITALS (12 sets, daily range): BP systolic 126–142; BP diastolic 61–91; PULSE 79–109; RESP 20–28; TEMP 96.7–98.8; O2SAT 94–98
[2016-05-31] MEDS: BENZONATATE 100 MG CAP PO PRN (02:43)
[2016-05-31] MEDS: CHLORHEXIDINE GLUCONATE 2 % 1 PACK (2 CLOTHS)(taper/protocol) TOP SCH (02:43)
[2016-05-31] MEDS: RESP: LEVALBUTEROL HYDROCHLORIDE 0.63 MG/3 ML NEB (SCH) NEB ×6 (03:02→23:23)
[2016-05-31] MEDS: CEFEPIME INJ 2,000 MG in SODIUM CHLORIDE 0.9% INJ 100 ML IV SCH ×3 (05:43→20:57)
[2016-05-31] MEDS: INSULIN ASPART 1,000 UNITS/10 ML VIAL SQ SCH ×5 (05:44→20:57)
[2016-05-31] MEDS: methylPREDNISolone SOD SUCC 125 MG/2 ML VIAL IV PUSH SCH ×3 (05:44→17:32)
[2016-05-31] MEDS: METHIMAZOLE 10 MG TAB PO SCH ×3 (05:44→20:56)
[2016-05-31] MEDS: INSULIN ASPART SUPPLEMENTAL SCALE SQ SCH ×4 (05:46→20:58)
[2016-05-31 06:42] LABS: AUTOMATED NEUTROPHIL # 8.8 TH/MM3 (1.8-7.7); BASOPHIL % 0.1 % (0.0-2.0); HEMATOCRIT 37.6 % (35.0-46.0); HEMO FLAGS DIFF FINAL; LYMPH % 10.8 % (9.0-44.0); LYMPHOCYTE # 1.1 TH/MM3 (1.0-4.8); MEAN CELL VOLUME 82.9 FL (80.0-100.0); MEAN CORPUSCULAR HEMOGLOBIN 27.9 PG (27.0-34.0); MEAN CORPUSCULAR HGB CONC 33.6 % (32.0-36.0); MONO % 5.8 % (0.0-8.0); NEUT % 83.3 % (16.0-70.0); PLATELET COUNT 342 TH/MM3 (150-450); RED BLOOD COUNT 4.53 MIL/MM3 (4.00-5.30); RED CELL DISTRIBUTION WIDTH 12.9 % (11.6-17.2); WHITE BLOOD COUNT 10.6 TH/MM3 (4.0-11.0)
[2016-05-31 06:51] LABS: ALT (GPT) 46 U/L (10-53); ANION GAP 12 MEQ/L (5-15); AST (GOT) 17 U/L (15-37); BICARBONATE 23.7 MEQ/L (21.0-32.0); BLOOD UREA NITROGEN 20 MG/DL (7-18); CHLORIDE 102 MEQ/L (98-107); GLOMERULAR FILTRATION RATE 207 ML/MIN (>89); POTASSIUM 3.5 MEQ/L (3.5-5.1); SODIUM (NA) 138 MEQ/L (136-145)
[2016-05-31 06:53] LABS: ALKALINE PHOSPHATASE 197 U/L (45-117); TOTAL BILIRUBIN ADULT 0.4 MG/DL (0.2-1.0)
[2016-05-31] MEDS: SODIUM CHLORIDE 0.9% FLUSH 5 ML FLUSH FLUSH SCH ×2 (08:51→20:58)
[2016-05-31] MEDS: BUDESONIDE-FORMOTEROL 160/4.5 MCG INHALER INH SCH ×2 (08:51→20:56)
[2016-05-31] MEDS: LISINOPRIL 5 MG TAB PO SCH (08:52)
[2016-05-31] MEDS: ATENOLOL 25 MG TAB PO SCH ×2 (08:52→20:56)
[2016-05-31] MEDS: PANTOPRAZOLE SOD 40 MG DELAYED RELEASE TAB PO SCH (08:52)
[2016-05-31] MEDS: INSULIN DETEMIR 100 UNITS/ML VIAL SQ SCH ×2 (08:52→20:57)
[2016-05-31] MEDS ORDERED: BENZOCAINE 6 MG/MENTHOL 10 MG LOZENGE BUCCAL PRN ×2 (12:15→12:20)
--- NOTE | 2016-05-31 12:18 | HHI.CCPN ---
Subjective Remarks/Hospital Course Patient is a 20-year-old female with known history of asthma and diabetes who presented to hospital 05/27/16 because of shortness of breath, cough with sputum production. Patient was just recently discharged from the hospital a day ago because of asthma exacerbation. Patient was given breathing treatments emergency department with improvement, however she remained tachycardic, so she was admitted to the hospitalist service at [place]. She was treated with DuoNeb breathing treatments, prednisone 40 mg twice a day and azithromycin. She does have Type 1 diabetes for which she is on Lantus and NovoLog at home. Beta hydroxybutyrate on admission mildly elevated 0.78. Patient underwent thyroid workup for tachycardia free T4 was 5.84 free T3 was 12.87 and TSH less than 0.005. Her thyroid ultrasound showed thyromegaly without nodule suggestive of Graves' disease. Patient consistently remained tachycardic sometimes sinus tachycardia up to 170s despite Cardizem 60 mg every 6 hours. For this reason critical care medicine was consulted and patient was transferred to ICU at the [facility]. I evaluated the patient in the ICU. Patient remains short of breath in moderate distress with bilateral wheezing. She is tachycardic varying from 120-130. Chest x-ray from yesterday shows left lingular pneumonia. Patient is currently on azithromycin and I have started cefepime to cover for nosocomial pneumonia. I will discontinue prednisone and start patient on IV Solu-Medrol. DuoNeb will be discontinued and patient is placed on Xopenex. Also for hyperthyroidism, will start patient on Tapazole 10 mg by mouth 3 times a day. DC Cardizem start atenolol 25 twice a day. Use esmolol if needed for rate control. SUBJECTIVE: 05/30/16: Complaints of intermittent cough and still wheezing, HR improved. Inadequate blood sugar control. Levemir changed to 25 Q12. Cardizem DC'd and Atenolol started yesterday. 05/31:17: The patient continues to have elevated blood glucose levels, regular insulin requirements for the last 24 hours were 145 units in addition to the Levemir. Levemir has been increased to 45 units twice a day .Persistent cough has subsided, and the patient remains in sinus rhythm. Objective Vital Signs Date Time Temp Pulse Resp B/P Pulse Ox O2 Delivery O2 Flow Rate FiO2 05/31/16 10:00 83 05/31/16 08:00 96.7 25 131/61 96 05/27/16 07:09 Room Air Intake and Output 05/30/16 05/30/16 05/31/16 08:00 16:00 00:00 Intake Total 1390 ml 1533 ml 130 ml Output Total 3 ml 650 ml Balance 1390 ml 1530 ml -520 ml Result Diagram: 05/31/16 0540 05/31/16 0540 Other Results Microbiology Date/Time Procedure Status Source Growth 05/28/16 20:00 Gram Stain - Final Complete Sputum Expectorated Sputum 05/28/16 20:00 Sputum Culture - Final Complete Sputum Expectorated Sputum HEAVY GROWTH NORMAL RESPIRATORY YANICK Imaging Chest x-ray shows left lingular infiltrate Thyroid ultrasound shows thyromegaly without nodules concerning for Graves' disease Objective Remarks GENERAL: Well-developed, well-nourished, in mild distress due to shortness of breath HEENT: Head is normocephalic. Pupils equal round reactive to light. Extraocular muscles are intact. Conjunctivae were clear. Oral cavity moist NECK: Thyromegaly without nodules palpated. Trachea midline no deviation. No JVD CARDIAC: Tachycardic, but improved. S1/S2 are heard. No murmurs gallops or rubs. LUNGS: Decreased air movement bilaterally with bilateral mild wheezing. Minimal use of accessory muscles on inspiration ABDOMEN: Soft, nontender. Nondistended. Bowel sounds heard in all 4 quadrants. No organomegaly or masses. Negative rebound, negative guarding EXTREMITIES: No edema, pulses are equal bilaterally. No cyanosis or clubbing. Mild resting tremor NEUROLOGY: Alert awake oriented no focal deficits. Urinary Catheter: No Vascular Central Line Catheter: No A/P Assessment and Plan ASSESSMENT: Acute asthma exacerbation-resolved Left lingular pneumonia/HCAP Hyperthyroidism/Probable Grave's disease Tachycardia-resolved Type 1 diabetes with hyperglycemia Insomnia PLAN: NEURO: -Minimize sedation. Use Ativan when necessary if needed for anxiety -Ambien 2.5 mg daily at bedtime when necessary for sleep RESP: Acute asthma exacerbation Left lingular pneumonia -Maintain oxygen saturation more than 92%, currently on room air O2 sat 97% -Xopenex every 4 hours scheduled and every 2 hours when necessary. Symbicort 2 puffs twice a day -IV Solu-Medrol 60 every 6 hours -Continue azithromycin 500 mg daily and cefepime 2 g IV every 8 hours( Day 3) CV: Sinus tachycardia-resolved -Sinus tachycardia secondary to beta agonist and hyperthyroidism -Continue atenolol 25 mg by mouth twice a day -Use esmolol infusion as needed to control heart rate, target < 110 -Normal saline IV fluids 125 ml per hour discontinued 05/30 -2 d echo 05/30 ejection fraction 6570 %, no RWMA GI: -1800 ADA diet. Protonix for GI prophylaxis : -Monitor renal function closely. ID: Left lingular pneumonia Leukocytosis-resolved -F/U blood cultures. Continue azithromycin and cefepime 2 g IV every 8 hours ( day 3) -Sputum culture negative on admission HEME: -Monitor CBC, CMP, as the patient is getting started on methimazole ENDO: Hypothyroidism/probable Graves' disease Type 1 diabetes -No evidence of thyroid storm, but clearly hyperthyroid (FT4-5.84, FT3-12.87, TSH<0.005, thyroid US -thyromegaly without nodules consistent with Graves' disease) -Continue Tapazole 10 mg every 8 hours. Baseline CBC CMP, and check daily. Check free T3 and free T4 on 06/01/16 -Monitor for bone marrow suppression and liver enzyme elevation -Continue atenolol 25 mg by mouth twice a day, use esmolol infusion if needed to target heart rate less than 110 -Continue IV steroids for hypothyroidism and asthma exacerbation -Increase Levemir to 25 q12 and continue pre-meal NovoLog with sliding scale -Patient counseled about getting snow blower and primary care appointments after discharge. She is agreeable to both -I have explained to her the possible side effects of Tapazole and she needs to be monitored closely -Follow-up thyroglobulin, thyroid peroxidase levels MSK -Out of bed to chair, ambulation PROPH: -Bilateral lower extremity SCDs. Protonix for GI prophylaxis. Lovenox 40 mg subcutaneous daily LINES: -Utilize peripheral IVs Level 2 Dispo: Patient currently in normal sinus rhythm, persistent cough subsided. Elevated glucose levels, glucose continually monitored Levemir adjusted. Plan transfer to [facility]. Transfer to floor Physician Odette Brandt MD May 31, 2016 12:18
[2016-05-31] MEDS: ENOXAPARIN SODIUM 40 MG/0.4 ML SYRINGE SQ SCH (20:56)
[2016-05-31] MEDS: AZITHROMYCIN 250 MG TAB PO SCH (20:56)
[2016-05-31] MEDS: ZOLPIDEM TARTRATE 5 MG TAB PO PRN (21:13)
[2016-06-01] VITALS (10 sets, daily range): BP systolic 97–143; BP diastolic 54–72; PULSE 74–96; RESP 18–24; TEMP 97.5–98.6; O2SAT 89–96
[2016-06-01] MEDS: INSULIN ASPART 1,000 UNITS/10 ML VIAL SQ SCH ×5 (00:27→16:30)
[2016-06-01] MEDS: methylPREDNISolone SOD SUCC 125 MG/2 ML VIAL IV PUSH SCH (00:27)
[2016-06-01] MEDS: CHLORHEXIDINE GLUCONATE 2 % 1 PACK (2 CLOTHS)(taper/protocol) TOP SCH (03:49)
[2016-06-01] MEDS: CEFEPIME INJ 2,000 MG in SODIUM CHLORIDE 0.9% INJ 100 ML IV SCH (03:50)
[2016-06-01] MEDS: RESP: LEVALBUTEROL HYDROCHLORIDE 0.63 MG/3 ML NEB (SCH) NEB ×4 (03:59→15:42)
[2016-06-01 04:58] LABS: HEMATOCRIT 36.6 % (35.0-46.0); MEAN CELL VOLUME 82.1 FL (80.0-100.0); MEAN CORPUSCULAR HEMOGLOBIN 27.6 PG (27.0-34.0); MEAN CORPUSCULAR HGB CONC 33.6 % (32.0-36.0); PLATELET COUNT 324 TH/MM3 (150-450); RED BLOOD COUNT 4.46 MIL/MM3 (4.00-5.30); RED CELL DISTRIBUTION WIDTH 12.6 % (11.6-17.2); REVIEW FLAG FINAL; WHITE BLOOD COUNT 11.8 TH/MM3 (4.0-11.0)
[2016-06-01 05:26] LABS: BICARBONATE 26.8 MEQ/L (21.0-32.0); POTASSIUM 3.6 MEQ/L (3.5-5.1)
[2016-06-01 05:35] LABS: FREE T3 4.39 PG/ML (2.18-3.98); FREE T4 2.48 NG/DL (0.76-1.46)
[2016-06-01] MEDS: INSULIN ASPART SUPPLEMENTAL SCALE SQ SCH ×3 (07:00→16:00)
[2016-06-01] MEDS: METHIMAZOLE 10 MG TAB PO SCH (07:33)
[2016-06-01] MEDS: methylPREDNISolone SOD SUCC 40 MG/1 ML VIAL IV SCH ×2 (08:01→16:30)
[2016-06-01] MEDS: ATENOLOL 25 MG TAB PO SCH (08:01)
[2016-06-01] MEDS: INSULIN DETEMIR 100 UNITS/ML VIAL SQ SCH (08:02)
[2016-06-01] MEDS: PANTOPRAZOLE SOD 40 MG DELAYED RELEASE TAB PO SCH (08:02)
[2016-06-01] MEDS: LISINOPRIL 5 MG TAB PO SCH (08:02)
[2016-06-01] MEDS: SODIUM CHLORIDE 0.9% FLUSH 5 ML FLUSH FLUSH SCH (08:03)
[2016-06-01] MEDS: BUDESONIDE-FORMOTEROL 160/4.5 MCG INHALER INH SCH (08:04)
[2016-06-01] MEDS ORDERED: methylPREDNISolone SOD SUCC 125 MG/2 ML VIAL IV PUSH SCH (09:00)
--- NOTE | 2016-06-01 09:26 | RADRPT ---
EXAM DATE/TIME: 06/01/2016 08:02 [facility] COMPARISON: CHEST SINGLE AP, May 29, 2016, 21:13. INDICATIONS : Patient states shortness of breath. MEDICAL HISTORY : Asthma SURGICAL HISTORY : None. ENCOUNTER: Subsequent ACUITY: 4 - 6 days PAIN SCORE: 0/10 LOCATION: Bilateral chest FINDINGS: A single view of the chest demonstrates the lungs to be symmetrically aerated without evidence of mas s, infiltrate or effusion. The cardiomediastinal contours are unremarkable. Osseous structures are intact. CONCLUSION: No acute cardiopulmonary process. Hiram Diaz MD on June 01, 2016 at 9:24 Board Certified Radiologist. This report was verified electronically.
[2016-06-01] MEDS ORDERED: IPRASOL NEB (09:58)
[2016-06-01] MEDS ORDERED: ATEN25TA PO (09:58)
[2016-06-01] MEDS ORDERED: SYMB160A INH (09:58)
[2016-06-01] MEDS ORDERED: METHI10 PO ×2 (09:58→16:27)
[2016-06-01] MEDS ORDERED: VENTAER INH ×2 (09:58→10:09)
[2016-06-01] MEDS ORDERED: PRED10 PO (10:08)
--- NOTE | 2016-06-01 10:41 | HHI.DS ---
Discharge Summary Admission Date May 29, 2016 at 4:37 pm Discharge Date: Jun 01, 2016 Admitting Diagnosis bronchitis, hyperglycemia, sinus tachycardia (1) Asthma exacerbation ICD Code: J45.901 Diagnosis: Principal (2) Sinus tachycardia ICD Code: R00.0 Diagnosis: Principal (3) Diabetes ICD Code: E11.9 Diagnosis: Secondary Procedures Echo 05/30/2016 - Left ventricle: The cavity size was normal. Wall thickness was normal. Systolic function was vigorous. The estimated ejection fraction was in the range of 65% to 70%. Wall motion was normal; there were no regional wall motion abnormalities. - Aortic valve: Valve area: 2.49cm^2(VTI). Valve area: 2.26cm^2 (Vmax). - Pulmonary arteries: PA peak pressure: 40mm Hg (S). Brief History - From Admission 20-year-old female with known history of asthma and diabetes who presented to hospital because of shortness of breath, dyspnea, cough with sputum production. Patient was just recent discharge from the hospital a day ago because of asthma exacerbation. Patient states that she continued to have shortness of breath, dyspnea with cough and phlegm production so she came back to the hospital for evaluation. Patient was given breathing treatments emergency department with improvement of her shortness of breath, however she remained tachycardic, so is recommended by the ER physician that patient be observed in the hospital for further recommendations. Upon review of patient's medical records it does appear as if the patient does have history of chronic tachycardia usually associated with asthma exacerbations. Review [place] [id number]. Upon evaluating the patient this morning she states that she is still having problems with shortness of breath, dyspnea is requesting a nebulizer treatment. Patient denies any abdominal pain , nausea, vomiting, chest pain. She does have diabetes in which she is on Lantus and NovoLog at home with blood sugars from 170-230. However she has had recent hospitalizations with steroid use which has caused heard diabetes to be uncontrolled. Beta hydroxybutyrate mildly elevated 0.78. CBC/BMP: 06/01/16 0448 06/01/16 0448 Significant Findings Laboratory Tests Test 05/29/16 05/29/16 05/29/16 05/30/16 13:15 21:24 21:33 04:18 White Blood Count 12.9 TH/MM3 11.8 TH/MM3 (4.0-11.0) (4.0-11.0) Neutrophils (%) (Auto) 87.7 % 91.1 % (16.0-70.0) (16.0-70.0) Lymphocytes (%) (Auto) 7.7 % 7.1 % (9.0-44.0) (9.0-44.0) Neutrophils # (Auto) 11.3 TH/MM3 10.8 TH/MM3 (1.8-7.7) (1.8-7.7) Random Glucose 311 MG/DL 291 MG/DL 245 MG/DL (74-106) (74-106) (74-106) Sodium Level 135 MEQ/L (136-145) Potassium Level 3.1 MEQ/L (3.5-5.1) Aspartate Amino Transf 10 U/L (15-37) (AST/SGOT) Alkaline Phosphatase 189 U/L (45-117) Albumin 2.9 GM/DL (3.4-5.0) Venous Blood pH 7.47 (7.360-7.400) Venous Blood Partial Pressure 33 mmHg (44-48) CO2 Venous Blood Partial Pressure 49 mmHg (35-40) O2 Venous Blood Oxygen Saturation 87 % (70-76) Lymphocytes # (Auto) 0.8 TH/MM3 (1.0-4.8) Creatinine 0.41 MG/DL (0.50-1.00) Test 05/31/16 06/01/16 05:40 04:48 Neutrophils (%) (Auto) 83.3 % (16.0-70.0) Neutrophils # (Auto) 8.8 TH/MM3 (1.8-7.7) Blood Urea Nitrogen 20 MG/DL (7-18) 23 MG/DL (7-18) Creatinine 0.39 MG/DL (0.50-1.00) Random Glucose 295 MG/DL 350 MG/DL (74-106) (74-106) Alkaline Phosphatase 197 U/L (45-117) Albumin 2.9 GM/DL (3.4-5.0) White Blood Count 11.8 TH/MM3 (4.0-11.0) Free Thyroxine 2.48 NG/DL (0.76-1.46) Free Triiodothyronine (T3) 4.39 PG/ML pg/dL (2.18-3.98) Imaging Last Impressions Chest X-Ray 06/01/16 0000 Signed Impressions: Service Date/Time: Wednesday, June 01, 2016 08:02 - CONCLUSION: No acute cardiopulmonary process. Hiram Diaz MD Thyroid Ultrasound 05/27/16 0000 Signed Impressions: Service Date/Time: Friday, May 27, 2016 15:33 - CONCLUSION: Thyromegaly without focal discrete lesions characteristic of Graves' disease. Don Jordan MD PE at Discharge GENERAL: Well-developed, well-nourished, in no acute distress. alert and orientated HEENT: Head is normocephalic without any lesions or masses noted. Facial features are symmetric. Eyes: Extraocular muscles are intact. Conjunctivae were clear. NECK: Supple without any masses. Trachea midline no deviation. No JVD, CARDIAC: Regular rhythm, tachycardia. S1/S2 are heard. No murmurs gallops or rubs. LUNGS: Faint wheeze noted bilaterally, right greater than left., rhonchi or rales. No use of accessory muscles on inspiration or expiration. ABDOMEN: Soft, nontender. Nondistended. Bowel sounds heard in all 4 quadrants. No organomegaly or masses. Negative rebound, negative guarding EXTREMITIES: No edema, pulses are equal bilaterally. No cyanosis or clubbing NEUROLOGY: Mood and affect appear appropriate. Cranial nerves II through XII grossly intact. Moving all extremities, speech is clear Pt update on day of discharge Ms. Galvez is doing well. No acute concerns. Breathing well in room air. No fever , chills. Feels hungry. Wants to go home. Hospital Course From ICU course: Patient is a 20-year-old female with known history of asthma and diabetes who presented to hospital 05/27/16 because of shortness of breath, cough with sputum production. Patient was just recently discharged from the hospital a day ago because of asthma exacerbation. Patient was given breathing treatments emergency department with improvement, however she remained tachycardic, so she was admitted to the hospitalist service at [place]. She was treated with DuoNeb breathing treatments, prednisone 40 mg twice a day and azithromycin. She does have Type 1 diabetes for which she is on Lantus and NovoLog at home. Beta hydroxybutyrate on admission mildly elevated 0.78. Patient underwent thyroid workup for tachycardia free T4 was 5.84 free T3 was 12.87 and TSH less than 0.005. Her thyroid ultrasound showed thyromegaly without nodule suggestive of Graves' disease. Patient consistently remained tachycardic sometimes sinus tachycardia up to 170s despite Cardizem 60 mg every 6 hours. For this reason critical care medicine was consulted and patient was transferred to ICU at the [facility]. I evaluated the patient in the ICU. Patient remains short of breath in moderate distress with bilateral wheezing. She is tachycardic varying from 120-130. Chest x-ray from yesterday shows left lingular pneumonia. Patient is currently on azithromycin and I have started cefepime to cover for nosocomial pneumonia. I will discontinue prednisone and start patient on IV Solu-Medrol. DuoNeb will be discontinued and patient is placed on Xopenex. Also for hyperthyroidism, will start patient on Tapazole 10 mg by mouth 3 times a day. DC Cardizem start atenolol 25 twice a day. Use esmolol if needed for rate control. 05/30/16: Complaints of intermittent cough and still wheezing, HR improved. Inadequate blood sugar control. Levemir changed to 25 Q12. Cardizem DC'd and Atenolol started yesterday. 05/31:17: The patient continues to have elevated blood glucose levels, regular insulin requirements for the last 24 hours were 145 units in addition to the Levemir. Levemir has been increased to 45 units twice a day .Persistent cough has subsided, and the patient remains in sinus rhythm. Patient's care was transferred to hospitalist service on 06/01/2016. Patient seen and examined on 06/01/2016. Patient is doing well and wants to go home. We discussed regarding her right problem and encouraged patient to obtain an tipple engineer. We also discussed her asthma medications. Patient is advised to keep albuterol inhaler with her at all times. We'll also continue Symbicort for a month. Patient verbalized understanding. She underwent liver ultrasound today which showed mild hepatomegaly. ICU attending recommended methimazole 10mg Qday instead of Q8hrs. We subsequently discharged patient home. Pt Condition on Discharge: Good Discharge Disposition: Discharge Home Discharge Time: > 30 minutes Discharge Instructions DIET: Follow Instructions for: As Tolerated, No Restrictions Activities you can perform: Regular-No Restrictions Follow up Referrals: Endocrinology - 1 Week PCP Follow-up - 1 Week New Medications: Prednisone (Prednisone) 10 Mg Tab 10 MG PO DIRECTED Take 2 tablets twice a day for 3 days THEN Take 1 tablet twice a day for 3 days THEN Take 1 tablet Once a day for 3 days THEN Take 1/2 tablet once a day for 2 days THEN STOP. Asthma Management #22 Ref 0 TAB Atenolol (Atenolol) 25 Mg Tab 25 MG PO Q12HR Heart rate #60 TAB Budesonide-Formoterol Inh (Symbicort Inh) 160-4.5 Mcg/Act Aero 2 PUFF INH Q12HR Asthma Management #1 INHALER Methimazole (Methimazole) 10 Mg Tab 10 MG PO DAILY Thyroid #90 TAB Continued Medications: Albuterol 18 GM Inh (Ventolin Hfa 18 GM Inh) 90 Mcg/Act Aer 2 PUFF INH Q4-6H PRN SHORTNESS OF BREATH #1 Ref 11 INHALER (This prescription has been renewed) Insulin Aspart Inj (Novolog Inj) 1,000 Unit/10 Ml Vial 3 UNITS SQ TIDAC Blood Sugar Management #1 Ref 1 VIAL Insulin Glargine Inj (Lantus Inj) 1,000 Unit/10 Ml Vial 30 UNITS SQ afternoon Blood Sugar Management #1 Ref 1 VIAL Ipratropium-Albuterol Neb (Duoneb) 0.5-2.5 Mg/3 Ml Neb 1 AMPULE NEB Q4-6H Shortness of Breath #1 BOX (This prescription has been renewed) Discontinued Medications: Lisinopril (Lisinopril) 2.5 Mg Tab 2.5 MG PO DAILY #30 Ref 0 TAB Prednisone (Prednisone) 20 Mg Tab 20 MG PO DAILY #5 TAB Joselito Banegas DO Jun 01, 2016 10:41
--- NOTE | 2016-06-01 16:08 | RADRPT ---
EXAM DATE/TIME: 06/01/2016 09:38 [facility] COMPARISON: No previous studies available for comparison. INDICATIONS : Abdominal pain. MEDICAL HISTORY : Gastroesophageal reflux disease. Diabetes mellitus type 1. Hypertension. Asthma. Dyspnea. Dysmenorh ea. UTI. Scoliosis. SURGICAL HISTORY : Oral sugery. Dilation and curettage. ENCOUNTER: Initial ACUITY: 1 day PAIN SCORE: 1/10 LOCATION: Bilateral upper quadrant MEASUREMENTS: LIVER: 17.2 cm length COMMON DUCT: 2 mm RIGHT KIDNEY: 12.7 x 5.7 x 5.0 cm SPLEEN: 11.9 cm length FINDINGS: LIVER: Mild hepatomegaly is noted. Normal echotexture without focal lesion or ductal dilatation. COMMON DUCT: No intraluminal mass or stone visualized. GALLBLADDER: Contains no stones, demonstrates no wall thickening or pericholecystic fluid. PANCREAS: The visualized portions are within normal limits. RIGHT KIDNEY: No hydronephrosis, stone or mass. SPLEEN: No focal lesion. CONCLUSION: Mild hepatomegaly. Kai Greenberg MD on June 01, 2016 at 16:05 Board Certified Radiologist. This report was verified electronically.
[2016-06-01] MEDS ORDERED: INSULIN DETEMIR 100 UNITS/ML VIAL SQ SCH (21:00)
[2016-06-02] MEDS ORDERED: METHIMAZOLE 10 MG TAB PO SCH (09:00)
[2016-06-02 23:58] LABS: THYROGLOB ABS 2 IU/mL (< OR = 1)
[2016-06-12 21:53] LABS: STAT NO
== END 2016-06-01 17:15 | disposition home or self-care (01) | DRG 194 ==
LOC: PHED 18:33 → PHEDA 22:46 → PHEDH 05-27 02:46 → PH3B 05-27 10:03 → OBSVTOIN 05-29 16:37 → HIME 05-29 18:25
PROVIDERS: ADMIT Hospitalist; ATTEND Hospitalist
DX: J18.9 Pneumonia, unspecified organism (principal); J45.901 Unspecified asthma with (acute) exacerbation; E10.65 Type 1 diabetes mellitus with hyperglycemia; E05.00 Thyrotoxicosis with diffuse goiter without thyrotoxic crisis or storm; Z79.4 Long term (current) use of insulin; Y95 Nosocomial condition
CPT/HCPCS: 71010; 71020; 76536; 76705; 80048; 80053; 82010; 82805; 82948; 83735; 84100; 84432; 84439; 84443; 84445; 84481; 84702; 85025; 85027; 85379; 86376; 86800; 87040; 87070; 87205; 87641; 87804; 93005; 93306; 94640; 94664; 96360; G0378; J0692; J0696; J1650; J1815; J2060; J2920; J2930; J3480; J7030; J7512; J7613; J7614

== ENCOUNTER 2016-06-27 01:23 | Emergency (ER) | payer SELFPAY ==
[~2016-06-27] VITALS: Ht 165.1 cm; Wt 80.0 kg
[~2016-06-27 01:23] MED LIST changes: +ATEN25TA PO; -LISI2.5T3 PO; +METHI10 PO; +PRED10 PO; -PRED20 PO; +SYMB160A INH
[2016-06-27 01:26] VITALS: BP 157/86; PULSE 90; RESP 14; TEMP 98; O2SAT 100
--- NOTE | 2016-06-27 01:44 | PD ---
HPI Chief Complaint: Skin Problem Time Seen by Provider: 01:40 Travel History International Travel<30 days: No Contact w/Intl Traveler<30days: No Traveled to known affect area: No History of Present Illness HPI 20-year-old white female insulin-dependent diabetic presents to emergency department with complaints of a infection to her face. She states that she had squeezed the pimple on her face 2 days ago and has now become increasing painful , red and swollen. Her blood sugars are elevated. Her last blood sugar is 258 at 6:00. She denies any fever or chills. No discharge. Pain is mild/ moderate. Up-to-date with immunizations. Denies . PFSH Past Medical History Narrative Medical IDDM, anxiety, hypertension, hyperthyroidism, pneumonia ADHD: No Asthma: Yes Autoimmune Disease: No Blood Disorders: No Anxiety: Yes Depression: No Heart Rhythm Problems: No Cancer: No Cardiovascular Problems: No High Cholesterol: No Chemotherapy: No Chest Pain: No Congestive Heart Failure: No COPD: No Developmental Delay: No Diabetes: Yes Diminished Hearing: No Endocrine: Yes (DKA ) Gastrointestinal Disorders: Yes Genitourinary: Yes Hypertension: Yes Immune Disorder: No Musculoskeletal: No Neurologic: No Psychiatric: Yes Reproductive: No Respiratory: Yes (ASTHMA) Immunizations Current: Yes Migraines: No Radiation Therapy: No Seizures: No Sickle Cell Disease: No Sleep Apnea: No Thyroid Disease: No Ulcer: No Tetanus Vaccination: < 5 Years PNEUMOCCOCAL Vaccine (Year): 2 ?: Not LMP: LAST MONTH : 0 : 1 Dilation and Curettage (D&C): Yes Past Surgical History Gynecologic Surgery: Yes () Oral Surgery: Yes Other Surgery: Yes (teeth extractions.) Social History Alcohol Use: Yes (socially) Tobacco Use: No Substance Use: No Allergies-Medications (Allergen,Severity, Reaction): Coded Allergies: Sulfa (Verified Allergy, Severe, RASH, EXACERBATION OF ASTHMA, 06/27/16) PT DENIES Tomato (Verified Allergy, Unknown, 06/27/16) PT DENIES Reported Meds & Prescriptions Reported Meds & Active Scripts Active Cleocin (Clindamycin HCl) 150 Mg Cap 300 Mg PO Q6H Doxycycline Hyclate 100 Mg Cap 100 Mg PO BID Methimazole 10 Mg Tab 10 Mg PO DAILY Ventolin Hfa 18 GM Inh (Albuterol Sulfate) 90 Mcg/Act Aer 2 Puff INH Q4-6H PRN Prednisone 10 Mg Tab 10 Mg PO DIRECTED Take 2 tablets twice a day for 3 days THEN Take 1 tablet twice a day for 3 days THEN Take 1 tablet Once a day for 3 days THEN Take 1/2 tablet once a day for 2 days THEN STOP. Symbicort Inh (Budesonide/Formoterol Fumarate) 160-4.5 Mcg/Act Aero 2 Puff INH Q12HR Atenolol 25 Mg Tab 25 Mg PO Q12HR Duoneb (Ipratropium-Albuterol Neb) 0.5-2.5 Mg/3 Ml Neb 1 Ampule NEB Q4-6H Novolog Inj (Insulin Aspart) 1,000 Unit/10 Ml Vial 3 Units SQ TIDAC Lantus Inj (Insulin Glargine) 1,000 Unit/10 Ml Vial 30 Units SQ AFTERNOON Review of Systems Except as stated in HPI: all other systems reviewed are Neg Physical Exam Narrative GENERAL: Well-developed, well-nourished in no apparent distress. Nontoxic appearing. HEAD: Normocephalic, patient has an area of cellulitis to her right naris and right upper lip just below the opening of the naris. This is erythematous, thickened and indurated. No fluctuance or pointing. The area measures approximately 2.5 x 2.5 cm. EYES: Pupils equal round and reactive. Extraocular motions intact. No scleral icterus. No injection or drainage. ENT: Nose clear. Throat without erythema, tonsillar hypertrophy or exudate. Uvula midline. Airway patent. NECK: Trachea midline. Supple, nontender, moves head freely. No central bony tenderness or spasm. CARDIOVASCULAR: Regular rate and rhythm without murmurs, gallops, or rubs. RESPIRATORY: Clear to auscultation. Breath sounds equal bilaterally. No wheezes , rales, or rhonchi. GASTROINTESTINAL: Abdomen soft, non-tender, nondistended. No hepato-splenomegaly , or palpable masses. No guarding. EXTREMITIES: No clubbing, cyanosis, or edema. No joint tenderness. BACK: Nontender without deformity. No flank tenderness. NEUROLOGICAL: Awake, alert and oriented x 3 .Cranial nerves grossly intact. Motor and sensory grossly within normal limits. Normal speech. Data Data Last Documented VS Vital Signs Date Time Temp Pulse Resp B/P Pulse Ox O2 Delivery O2 Flow Rate FiO2 06/27/16 01:26 98.0 90 14 157/86 100 Room Air Orders Complete Blood Count With Diff (06/27/16 01:39) Basic Metabolic Panel (Bmp) (06/27/16 01:39) Iv Access Insert/Monitor (06/27/16 01:39) Clindamycin Inj (Cleocin Inj) (06/27/16 01:45) Doxycycline (Vibramycin) (06/27/16 01:45) Labs Laboratory Tests Test 06/27/16 01:50 White Blood Count 10.2 TH/MM3 Red Blood Count 4.67 MIL/MM3 Hemoglobin 13.5 GM/DL Hematocrit 39.0 % Mean Corpuscular Volume 83.5 FL Mean Corpuscular Hemoglobin 28.8 PG Mean Corpuscular Hemoglobin 34.5 % Concent Red Cell Distribution Width 13.8 % Platelet Count 303 TH/MM3 Mean Platelet Volume 7.9 FL Neutrophils (%) (Auto) 64.8 % Lymphocytes (%) (Auto) 23.3 % Monocytes (%) (Auto) 10.4 % Eosinophils (%) (Auto) 1.2 % Basophils (%) (Auto) 0.3 % Neutrophils # (Auto) 6.6 TH/MM3 Lymphocytes # (Auto) 2.4 TH/MM3 Monocytes # (Auto) 1.1 TH/MM3 Eosinophils # (Auto) 0.1 TH/MM3 Basophils # (Auto) 0.0 TH/MM3 CBC Comment DIFF FINAL Differential Comment Sodium Level 136 MEQ/L Potassium Level 3.8 MEQ/L Chloride Level 100 MEQ/L Carbon Dioxide Level 27.4 MEQ/L Anion Gap 9 MEQ/L Blood Urea Nitrogen 10 MG/DL Creatinine 0.54 MG/DL Estimat Glomerular Filtration 143 ML/MIN Rate Random Glucose 285 MG/DL Calcium Level 9.4 MG/DL MDM Medical Decision Making Medical Screen Exam Complete: Yes Emergency Medical Condition: Yes Medical Record Reviewed: Yes Interpretation(s) CBC & BMP Diagram 06/27/16 01:50 Differential Diagnosis MDM: High Differential diagnoses: Abscess, folliculitis, cellulitis, lymphangitis, abrasion, contact dermatitis Narrative Course IV access is obtained. Patient's given 900 mg of clindamycin IV. Doxycycline 100 mg by mouth. CBC and chemistry. Diagnosis Primary Impression: Facial cellulitis Additional Impression: early abscess Patient Instructions: General Instructions Additional Instructions: Rest. Elevation. keep clean and dry. Warm compresses. Daily wound care with soap, water and Neosporin. Three Advil every 6 hours. Clindamycin and doxycycline. Recheck in the ER in 24 hours. Return to the ER for any problems. Med/Other Pt SpecificInfo: Prescription(s) given, Wound Care Scripts Clindamycin (Cleocin)150 Mg [id number] Mg PO Q6H #80 CAP Prov:Conrad Staley MD 06/27/16 Doxycycline Hyclate 100 Mg [id number] Mg PO BID #20 CAP Prov:Conrad Staley MD 06/27/16 Disposition: 01 DISCHARGE HOME Condition: Stable Mian Nesbitt Jun 27, 2016 01:44
[2016-06-27] MEDS ORDERED: DOXYCYCLINE HYCLATE 100 MG CAP PO ONE (01:45)
[2016-06-27] MEDS ORDERED: DOXY100C PO (01:45)
[2016-06-27] MEDS ORDERED: CLIN150 PO (01:45)
[2016-06-27] MEDS ORDERED: CLINDAMYCIN INJ 900 MG in SODIUM CHLORIDE 0.9% INJ 100 ML IV ONE (01:45)
[2016-06-27 02:05] LABS: AUTOMATED NEUTROPHIL # 6.6 TH/MM3 (1.8-7.7); BASOPHIL % 0.3 % (0.0-2.0); EOSINOPHIL # 0.1 TH/MM3 (0-0.4); EOSINOPHIL % 1.2 % (0.0-4.0); HEMO FLAGS DIFF FINAL; LYMPH % 23.3 % (9.0-44.0); LYMPHOCYTE # 2.4 TH/MM3 (1.0-4.8); MEAN CELL VOLUME 83.5 FL (80.0-100.0); MEAN CORPUSCULAR HEMOGLOBIN 28.8 PG (27.0-34.0); MEAN CORPUSCULAR HGB CONC 34.5 % (32.0-36.0); MONO % 10.4 % (0.0-8.0); NEUT % 64.8 % (16.0-70.0); PLATELET COUNT 303 TH/MM3 (150-450); RED BLOOD COUNT 4.67 MIL/MM3 (4.00-5.30); RED CELL DISTRIBUTION WIDTH 13.8 % (11.6-17.2); WHITE BLOOD COUNT 10.2 TH/MM3 (4.0-11.0)
[2016-06-27 02:34] LABS: BICARBONATE 27.4 MEQ/L (21.0-32.0); POTASSIUM 3.8 MEQ/L (3.5-5.1)
== END 2016-06-27 03:01 | disposition home or self-care (01) ==
LOC: NEPK 01:23
DX: L03.211 Cellulitis of face (principal); L02.01 Cutaneous abscess of face; E05.90 Thyrotoxicosis, unspecified without thyrotoxic crisis or storm; I10 Essential (primary) hypertension; E11.9 Type 2 diabetes mellitus without complications; J45.909 Unspecified asthma, uncomplicated
CPT/HCPCS: 80048; 85025; 96365

== ENCOUNTER 2016-09-09 17:43 | Emergency (ER) | payer OTHER ==
[~2016-09-09] VITALS: Ht 165.1 cm; Wt 75.0 kg
[~2016-09-09 17:43] MED LIST changes: +CLIN150 PO; +DOXY100C PO
[2016-09-09 17:45] VITALS: BP 129/78; PULSE 126; RESP 20; TEMP 97.9; O2SAT 98
--- NOTE | 2016-09-09 17:49 | PD ---
Physical Exam Date Seen by Provider: Sep 09, 2016 Time Seen by Provider: 17:48 Narrative 21 yo female has possible cyst vs infection on the vaginal area. Had one in the nose before and feels and looks exactly the same. Painful. Hard and possible pus. Erythematous. Pain is 8/10. Vitals are stable in triage. Awaiting bed placement. Data Data Last Documented VS Vital Signs Date Time Temp Pulse Resp B/P Pulse Ox O2 Delivery O2 Flow Rate FiO2 09/09/16 17:45 97.9 126 20 129/78 98 Room Air [facility] Medical Record Reviewed: Yes Supervised Visit with PJ: No Farhan Alfaro Sep 09, 2016 17:49
[2016-09-09] MEDS ORDERED: CLIN1CAP5 PO (18:43)
[2016-09-09] MEDS ORDERED: DOXY100C PO (18:43)
[2016-09-09] MEDS ORDERED: TRAM50TA PO (18:45)
[2016-09-09] MEDS ORDERED: CLINDAMYCIN PHOS 600 MG/4 ML VIAL IM ONE (18:45)
--- NOTE | 2016-09-09 18:49 | PD ---
HPI Chief Complaint: Skin Problem Time Seen by Provider: 17:56 Travel History International Travel<30 days: No Contact w/Intl Traveler<30days: No Traveled to known affect area: No History of Present Illness HPI The patient was seen and examined in the presence of the nurse. This patient complains of an infected area in her her left groin. Duration 3 days. Severity of symptoms is mild to moderate. No drainage or fever. No alleviating factors. PFSH Past Medical History ADHD: No Asthma: Yes Autoimmune Disease: No Blood Disorders: No Anxiety: Yes Depression: No Heart Rhythm Problems: No Cancer: No Cardiovascular Problems: No High Cholesterol: No Chemotherapy: No Chest Pain: No Congestive Heart Failure: No COPD: No Developmental Delay: No Diabetes: Yes Diminished Hearing: No Endocrine: Yes (DKA ) Gastrointestinal Disorders: Yes Genitourinary: Yes Hypertension: Yes Immune Disorder: No Musculoskeletal: No Neurologic: No Psychiatric: Yes Reproductive: No Respiratory: Yes (asthma) Immunizations Current: Yes Migraines: No Radiation Therapy: No Seizures: No Sickle Cell Disease: No Sleep Apnea: No Thyroid Disease: No Ulcer: No Tetanus Vaccination: Unknown Influenza Vaccination: No PNEUMOCCOCAL Vaccine (Year): 2 ?: Unknown : 0 : 1 Dilation and Curettage (D&C): Yes Past Surgical History Gynecologic Surgery: Yes () Oral Surgery: Yes Other Surgery: Yes (teeth extractions.) Social History Alcohol Use: No Tobacco Use: No Substance Use: No Allergies-Medications (Allergen,Severity, Reaction): Coded Allergies: Sulfa (Verified Allergy, Severe, RASH, EXACERBATION OF ASTHMA, 06/27/16) PT DENIES Tomato (Verified Allergy, Unknown, 06/27/16) PT DENIES Reported Meds & Prescriptions Reported Meds & Active Scripts Active Tramadol (Tramadol HCl) 50 Mg Tab 50 Mg PO Q6H PRN Clindamycin (Clindamycin HCl) 150 Mg Cap 300 Mg PO Q6H Doxycycline Hyclate 100 Mg Cap 100 Mg PO BID Cleocin (Clindamycin HCl) 150 Mg Cap 300 Mg PO Q6H Doxycycline Hyclate 100 Mg Cap 100 Mg PO BID Methimazole 10 Mg Tab 10 Mg PO DAILY Ventolin Hfa 18 GM Inh (Albuterol Sulfate) 90 Mcg/Act Aer 2 Puff INH Q4-6H PRN Prednisone 10 Mg Tab 10 Mg PO DIRECTED Take 2 tablets twice a day for 3 days THEN Take 1 tablet twice a day for 3 days THEN Take 1 tablet Once a day for 3 days THEN Take 1/2 tablet once a day for 2 days THEN STOP. Symbicort Inh (Budesonide/Formoterol Fumarate) 160-4.5 Mcg/Act Aero 2 Puff INH Q12HR Atenolol 25 Mg Tab 25 Mg PO Q12HR Duoneb (Ipratropium-Albuterol Neb) 0.5-2.5 Mg/3 Ml Neb 1 Ampule NEB Q4-6H Novolog Inj (Insulin Aspart) 1,000 Unit/10 Ml Vial 3 Units SQ TIDAC Lantus Inj (Insulin Glargine) 1,000 Unit/10 Ml Vial 30 Units SQ AFTERNOON Review of Systems General / Constitutional: No: Fever Eyes: No: Visual changes HENT: No: Headaches Cardiovascular: No: Chest Pain or Discomfort Respiratory: No: Shortness of Breath Gastrointestinal: No: Abdominal Pain Genitourinary: No: Dysuria Musculoskeletal: Positive: Pain Skin: No Rash Neurologic: No: Weakness Psychiatric: No: Depression Endocrine: No: Polydipsia Hematologic/Lymphatic: No: Easy Bruising Physical Exam Narrative GENERAL: Well-nourished, well-developed patient in no apparent distress. SKIN: Focused skin assessment reveals no rash and nodules. Skin is Warm and dry. HEAD: Atraumatic. Normocephalic. EYES: Pupils equal and round. No scleral icterus. No injection or drainage. ENT: No nasal bleeding or discharge. Mucous membranes pink and moist. NECK: Trachea midline. No JVD. CARDIOVASCULAR: Regular rate and rhythm. No murmur appreciated. RESPIRATORY: No accessory muscle use. Clear to auscultation. Breath sounds equal bilaterally. GASTROINTESTINAL: Abdomen soft, non-tender, nondistended. Hepatic and splenic margins not palpable. Patient has a triangle-shaped area of macular erythema on the left half of the mons. There is some induration but no fluctuance or drainage. No lymphadenopathy. MUSCULOSKELETAL: No obvious deformities. No clubbing. No cyanosis. No edema. NEUROLOGICAL: Awake and alert. No obvious cranial nerve deficits. Motor grossly within normal limits. Normal speech. PSYCHIATRIC: Appropriate mood and affect; insight and judgment normal. Data Data Last Documented VS Vital Signs Date Time Temp Pulse Resp B/P Pulse Ox O2 Delivery O2 Flow Rate FiO2 6/28/17 17:45 97.9 126 20 129/78 98 Room Air Orders Clindamycin Inj (Cleocin Inj) (09/09/16 18:45) MDM Medical Decision Making Medical Screen Exam Complete: Yes Emergency Medical Condition: Yes Medical Record Reviewed: Yes Differential Diagnosis Cellulitis, abscess, boil Narrative Course I have reviewed the patient's electronic medical record. Patient was seen here for a facial infection successfully treated with clindamycin and doxycycline Patient has a skin infection on the left mons. It is not amenable to incision and drainage or culturing. There is induration without fluctuance or drainage. At this point seems superficial I gave her injection of clindamycin followed by prescription for clindamycin and doxycycline This will empirically cover community acquired MRSA Recommend warm compresses and recheck in 48 hours if not improved She has been tracking her sugars at between 200 and 300, including today, and admits to noncompliance with her insulin. She has not used it in several days. Diagnosis Primary Impression: Cellulitis of groin, left Additional Instructions: The patient was advised to follow up with their physician and return if they worsen. The patient was warned about potential sedation for the medications they will receive on prescription. Use warm compresses Med/Other Pt SpecificInfo: Prescription(s) given Scripts Tramadol 50 Mg Tab50 Mg PO Q6H PRN (PAIN) #15 TAB Ref 0 Prov:Stu Gonzalez MD 09/09/16 Clindamycin 150 Mg [id number] Mg PO Q6H #56 CAP Ref 0 Prov:Stu Gonzalez MD 09/09/16 Doxycycline Hyclate 100 Mg [id number] Mg PO BID #20 CAP Ref 0 Prov:Stu Gonzalez MD 09/09/16 Disposition: DISCHARGE HOME Condition: Stable Stu Gonzalez MD Sep 09, 2016 18:49
[2016-09-09 19:17] VITALS: BP 121/72
== END 2016-09-09 19:20 | disposition home or self-care (01) ==
LOC: NEPD 17:43
DX: L03.314 Cellulitis of groin (principal); F41.9 Anxiety disorder, unspecified; E11.9 Type 2 diabetes mellitus without complications; I10 Essential (primary) hypertension; J45.909 Unspecified asthma, uncomplicated; Z79.899 Other long term (current) drug therapy; Z79.4 Long term (current) use of insulin; Z88.2 Allergy status to sulfonamides
CPT/HCPCS: 96372

== ENCOUNTER 2016-09-30 20:57 | Emergency (ER) | payer SELFPAY ==
[~2016-09-30 20:57] MED LIST changes: +CLIN1CAP5 PO; +TRAM50TA PO
[2016-09-30 20:59] VITALS: BP 163/85; PULSE 78; RESP 16; TEMP 98.2; O2SAT 100
[2016-10-01] MEDS ORDERED: DOXY100C PO (00:22)
--- NOTE | 2016-10-01 00:22 | PD ---
HPI Chief Complaint: Lump, Cyst, Hernia Time Seen by Provider: 23:57 Travel History International Travel<30 days: No Contact w/Intl Traveler<30days: No Traveled to known affect area: No History of Present Illness HPI Patient is a 21-year-old female with history of diabetes, presents to emergency with complaints of left groin abscess. Reports that she was seen in the emergency room on September 01, 2016 for similar symptoms, that she was discharged home with clindamycin as well as doxycycline, reports that she could not complete full course of antibiotics as it made her feel nauseous. Patient reports that after her first course of antibiotics, symptoms did improve, reports that the abscess has returned. Patient with no fevers or chills, denies any nausea or vomiting. Patient reports that her tetanus is up-to-date. Patient is a diabetic - BS controlled as per patient PFSH Past Medical History ADHD: No Asthma: Yes Autoimmune Disease: No Blood Disorders: No Anxiety: Yes Depression: No Heart Rhythm Problems: No Cancer: No Cardiovascular Problems: No High Cholesterol: No Chemotherapy: No Chest Pain: No Congestive Heart Failure: No COPD: No Developmental Delay: No Diabetes: Yes Patient Takes Glucophage: No Diminished Hearing: No Endocrine: Yes (DKA ) Gastrointestinal Disorders: Yes Genitourinary: Yes Hypertension: Yes Immune Disorder: No Musculoskeletal: No Neurologic: No Psychiatric: Yes Reproductive: No Respiratory: Yes (asthma) Immunizations Current: Yes Migraines: No Radiation Therapy: No Seizures: No Sickle Cell Disease: No Sleep Apnea: No Thyroid Disease: No Ulcer: No PNEUMOCCOCAL Vaccine (Year): 2 ?: Unknown LMP: 08/29/16 : 0 : 1 Dilation and Curettage (D&C): Yes Past Surgical History Gynecologic Surgery: Yes () Oral Surgery: Yes Other Surgery: Yes (teeth extractions.) Social History Alcohol Use: Yes (OCCASIONALLY ) Tobacco Use: No Substance Use: No Allergies-Medications (Allergen,Severity, Reaction): Coded Allergies: Sulfa (Verified Allergy, Severe, RASH, EXACERBATION OF ASTHMA, 06/27/16) PT DENIES Tomato (Verified Allergy, Unknown, 06/27/16) PT DENIES Reported Meds & Prescriptions Reported Meds & Active Scripts Active Doxycycline Hyclate 100 Mg Cap 100 Mg PO BID 10 Days Tramadol (Tramadol HCl) 50 Mg Tab 50 Mg PO Q6H PRN Clindamycin (Clindamycin HCl) 150 Mg Cap 300 Mg PO Q6H Doxycycline Hyclate 100 Mg Cap 100 Mg PO BID Cleocin (Clindamycin HCl) 150 Mg Cap 300 Mg PO Q6H Doxycycline Hyclate 100 Mg Cap 100 Mg PO BID Methimazole 10 Mg Tab 10 Mg PO DAILY Ventolin Hfa 18 GM Inh (Albuterol Sulfate) 90 Mcg/Act Aer 2 Puff INH Q4-6H PRN Prednisone 10 Mg Tab 10 Mg PO DIRECTED Take 2 tablets twice a day for 3 days THEN Take 1 tablet twice a day for 3 days THEN Take 1 tablet Once a day for 3 days THEN Take 1/2 tablet once a day for 2 days THEN STOP. Symbicort Inh (Budesonide/Formoterol Fumarate) 160-4.5 Mcg/Act Aero 2 Puff INH Q12HR Atenolol 25 Mg Tab 25 Mg PO Q12HR Duoneb (Ipratropium-Albuterol Neb) 0.5-2.5 Mg/3 Ml Neb 1 Ampule NEB Q4-6H Novolog Inj (Insulin Aspart) 1,000 Unit/10 Ml Vial 3 Units SQ TIDAC Lantus Inj (Insulin Glargine) 1,000 Unit/10 Ml Vial 30 Units SQ AFTERNOON Review of Systems General / Constitutional: No: Fever Eyes: No: Visual changes HENT: No: Headaches Cardiovascular: No: Chest Pain or Discomfort Respiratory: No: Shortness of Breath Gastrointestinal: No: Abdominal Pain Genitourinary: No: Dysuria Musculoskeletal: No: Pain Skin: Positive Other (left groin abscess), No Rash Neurologic: No: Weakness Psychiatric: No: Depression Endocrine: No: Polydipsia Hematologic/Lymphatic: No: Easy Bruising Physical Exam Narrative GENERAL: NAD, nontoxic SKIN: Focused skin assessment warm/dry. HEAD: Atraumatic. Normocephalic. EYES: No scleral icterus. No injection or drainage. ENT: No nasal bleeding or discharge. Mucous membranes pink and moist. NECK: Trachea midline. No JVD. CARDIOVASCULAR: Regular rate and rhythm. No murmur appreciated. RESPIRATORY: No accessory muscle use. Clear to auscultation. Breath sounds equal bilaterally. GASTROINTESTINAL: Abdomen soft, non-tender, nondistended. Hepatic and splenic margins not palpable. Patient with left sided groin abscess which is nonfluctuant with no erythema or drainage or signs of infection MUSCULOSKELETAL: No obvious deformities. No clubbing. No cyanosis. No edema. NEUROLOGICAL: Awake and alert. No obvious cranial nerve deficits. Motor grossly within normal limits. Normal speech. PSYCHIATRIC: Appropriate mood and affect; insight and judgment normal. Data Data Last Documented VS Vital Signs Date Time Temp Pulse Resp B/P Pulse Ox O2 Delivery O2 Flow Rate FiO2 09/30/16 20:59 98.2 78 16 163/85 100 Room Air Orders Bedside Glucose DANIELA.AC&HS (10/01/16 00:02) Doxycycline (Vibramycin) (10/01/16 00:30) MDM Medical Decision Making Medical Screen Exam Complete: Yes Emergency Medical Condition: Yes Interpretation(s) Vital Signs Date Time Temp Pulse Resp B/P Pulse Ox O2 Delivery O2 Flow Rate FiO2 09/30/16 20:59 98.2 78 16 163/85 100 Room Air Differential Diagnosis Differential includes swollen lymph node versus abscess Narrative Course 21-year-old female who returns to emergency room with complaints of abscess to her left groin. Patient has had similar symptoms in the past, reports that she was not compliant with her antibiotics, returns to emergency room for treatment. Patient with no fevers or chills, patient with nonfluctuant abscess to her left groin. Discussed need for medication compliance as well as warm compresses to her left groin. Understands need to return to ER in 48 hours for re-evaluation of her symptoms. Signs and symptoms of when to return to ER was reviewed with patient in detail. AMA: The risks of leaving against medical advice without further evaluation treatment were discussed with the patient. These risks include cardiac dysfunction, cardiac dysrhythmia, possible heart attack, possible stroke or . The patient indicated understanding of these risks and appeared to have the capacity to make this decision. I was called to assist in a trauma alert patient, patient left without her discharge paper work and antibiotics Diagnosis Primary Impression: Abscess of groin, left Patient Instructions: General Instructions Additional Instructions: Return to ER or to your primary care doctor in 48 hours for re-evaluation of symptoms Return to ER earlier if you develop fever/chills or progressing symptoms Return to ER as needed Please take all antibiotics as prescribed Med/Other Pt SpecificInfo: Prescription(s) given Scripts Doxycycline Hyclate 100 Mg [id number] Mg PO BID 10 Days Ref 0 Prov:Ynes Romo DO 10/01/16 Disposition: 07 AGAINST MEDICAL ADVICE Condition: Serious Ynes Romo DO Oct 01, 2016 00:22
[2016-10-01] MEDS ORDERED: DOXYCYCLINE HYCLATE 100 MG CAP PO ONE (00:30)
== END 2016-10-01 03:31 | disposition left against medical advice (07) ==
LOC: NEPC 20:57
DX: L02.214 Cutaneous abscess of groin (principal); J45.909 Unspecified asthma, uncomplicated; I10 Essential (primary) hypertension; E11.9 Type 2 diabetes mellitus without complications; F41.9 Anxiety disorder, unspecified; Z79.4 Long term (current) use of insulin; Z79.899 Other long term (current) drug therapy
CPT/HCPCS: 99283

== ENCOUNTER 2017-06-11 23:50 | Emergency (ER) | payer SELFPAY ==
[~2017-06-11] VITALS: Ht 167.6 cm; Wt 85.3 kg
[~2017-06-11 23:50] MED LIST changes: +CLIN150C14 PO; -CLIN1CAP5 PO
[2017-06-11 23:52] VITALS: BP 138/60; PULSE 84; RESP 14; TEMP 98.1; O2SAT 97
[2017-06-12] MEDS ORDERED: CLIN150C14 PO (00:32)
--- NOTE | 2017-06-12 00:33 | PD ---
HPI Chief Complaint: Skin Problem Time Seen by Provider: 00:24 Travel History International Travel<30 days: No Contact w/Intl Traveler<30days: No Traveled to known affect area: No History of Present Illness HPI As well 21-year-old with history of diabetes and asthma presents emerged department with painful tender lump in her right inguinal area. She is a history of folliculitis as well as recurrent soft tissue infections in the past. Is been bothering for the past couple days. No else in the house suffers from similar problems. History Past Medical History Narrative Medical Asthma Diabetes Tetanus Vaccination: < 5 Years Influenza Vaccination: No PNEUMOCCOCAL Vaccine (Year): 2 LMP: 05/12/17 : 0 Dilation and Curettage (D&C): Yes Social History Alcohol Use: Yes (OCCASIONALLY ) Tobacco Use: No Allergies-Medications (Allergen,Severity, Reaction): Coded Allergies: Sulfa (Sulfonamide Antibiotics) (Unverified Allergy, Severe, RASH, EXACERBATION OF ASTHMA, 06/11/17) PT DENIES tomato (Unverified Allergy, Unknown, 06/11/17) PT DENIES Reported Meds & Prescriptions Reported Meds & Active Scripts Active Clindamycin (Clindamycin HCl) 150 Mg Cap 300 Mg PO Q6H Doxycycline Hyclate 100 Mg Cap 100 Mg PO BID 10 Days Tramadol (Tramadol HCl) 50 Mg Tab 50 Mg PO Q6H PRN Doxycycline Hyclate 100 Mg Cap 100 Mg PO BID Cleocin (Clindamycin HCl) 150 Mg Cap 300 Mg PO Q6H Doxycycline Hyclate 100 Mg Cap 100 Mg PO BID Methimazole 10 Mg Tab 10 Mg PO DAILY Ventolin Hfa 18 GM Inh (Albuterol Sulfate) 90 Mcg/Act Aer 2 Puff INH Q4-6H PRN Prednisone 10 Mg Tab 10 Mg PO DIRECTED Take 2 tablets twice a day for 3 days THEN Take 1 tablet twice a day for 3 days THEN Take 1 tablet Once a day for 3 days THEN Take 1/2 tablet once a day for 2 days THEN STOP. Symbicort Inh (Budesonide/Formoterol Fumarate) 160-4.5 Mcg/Act Aero 2 Puff INH Q12HR Atenolol 25 Mg Tab 25 Mg PO Q12HR Duoneb (Ipratropium-Albuterol Neb) 0.5-2.5 Mg/3 Ml Neb 1 Ampule NEB Q4-6H Novolog Inj (Insulin Aspart) 1,000 Unit/10 Ml Vial 3 Units SQ TIDAC Lantus Inj (Insulin Glargine) 1,000 Unit/10 Ml Vial 30 Units SQ AFTERNOON Review of Systems Except as stated in HPI: all other systems reviewed are Neg Physical Exam Narrative GENERAL: Well-appearing 21-year-old woman, no acute distress. SKIN: Warm and dry. CARDIOVASCULAR: Warm and well perfused. RESPIRATORY: Normal rate and effort. MUSCULOSKELETAL: In the right inguinal area there are several small areas of folliculitis and one large area of central induration about a centimeter in size. There is no fluctuance. No purulent drainage. NEUROLOGICAL: Awake and alert. No gross deficits. Data Data Last Documented VS Vital Signs Date Time Temp Pulse Resp B/P (MAP) Pulse Ox O2 Delivery O2 Flow Rate FiO2 06/11/17 23:52 98.1 84 14 138/60 (86) 97 Orders Orders Ed Discharge Order (06/12/17 00:33) MDM Medical Decision Making Medical Screen Exam Complete: Yes Emergency Medical Condition: Yes Differential Diagnosis Abscess, folliculitis, other Narrative Course Medical decision making 21-year-old woman, presents ED of looks like folliculitis with a little bit of induration, no see a fluctuant abscess. We will plan antibiotics and warm compresses. Diagnosis Primary Impression: Folliculitis Additional Instructions: Follow-up with your primary doctor in for any persistent symptoms. Use warm compresses 4 times daily as discussed. Take antibiotics as prescribed. Med/Other Pt SpecificInfo: Prescription(s) given Scripts Clindamycin (Clindamycin) 150 Mg Cap 300 MG PO Q6H for Infection, #56 CAP 0 Refills Prov: Roel Morris MD 06/12/17 Disposition: 01 DISCHARGE HOME Condition: Stable Roel Morris MD Jun 12, 2017 00:33
== END 2017-06-12 01:07 | disposition home or self-care (01) ==
LOC: PHED 23:50
DX: L73.9 Follicular disorder, unspecified (principal); J45.909 Unspecified asthma, uncomplicated; E11.9 Type 2 diabetes mellitus without complications; Z79.4 Long term (current) use of insulin; Z79.899 Other long term (current) drug therapy; Z88.2 Allergy status to sulfonamides
CPT/HCPCS: 99283